=== PATIENT | female | born 1955 | race Caucasian/White ===

== ENCOUNTER → 2020-08-17 08:15 | Outpatient (BNVA) | payer MEDICARE, MEDICAID, SELFPAY | PROVIDERS: PCP Internal Medicine; Visit Provider Student in an Organized Health Care Education/Training Program | DX: Z13.89 Encounter for screening for other disorder (principal) | CPT/HCPCS: Q3014 ==

== ENCOUNTER → 2020-08-29 10:18 | Outpatient (BNVA) | payer MEDICARE, MEDICAID, SELFPAY | PROVIDERS: PCP Internal Medicine; Visit Provider Student in an Organized Health Care Education/Training Program | DX: M81.0 Age-related osteoporosis without current pathological fracture (principal) | CPT/HCPCS: 96402; J0897 ==

== ENCOUNTER 2020-11-16 08:48 | Outpatient (REF) | payer MEDICARE, MEDICAID, SELFPAY ==
[2020-11-16 10:15] LABS: MANUAL DIFF FLAG NO
[2020-11-16 10:26] LABS: Basophils Absolute Auto 0.1 X10*3/uL (0.0-0.2); Basophils Percent Auto 0.5 % (0-2); Eosinophils Absolute Auto 0.1 X10*3/uL (0.0-0.4); Eosinophils Percent Auto 1.3 % (0-4); Hematocrit 36.8 % (37-47); Hemoglobin 11.9 g/dl (12.0-16.0); Imm Gran Abs Auto 0.03 X10*3/uL (0.00-0.03); Imm Gran Pct Auto 0.3 % (0.0-0.4); Lymphocytes Absolute Auto 1.9 X10*3/uL (1.2-4.9); Lymphocytes Percent Auto 20.1 % (20-40); Mean Corpuscular HGB Conc 32.3 g/dl (31.0-35.0); Mean Corpuscular Hemoglobin 28.1 pg (27.0-33.0); Mean Corpuscular Volume 86.8 fL (80-98); Mean Platelet Volume 9.5 fL (9.4-12.3); Monocytes Absolute Auto 0.7 X10*3/uL (0.1-1.2); Monocytes Percent Auto 7.3 % (2-11); Neutrophils Absolute Auto 6.8 X10*3/uL (2.0-8.3); Neutrophils Percent Auto 70.5 % (45-73); Platelet Count 430 X10*3/uL (160-400); Red Blood Count 4.24 X10*6/uL (4.20-5.50); Red Cell Distribution Width 12.6 % (11.0-16.0); White Blood Count 9.6 X10*3/uL (4.8-10.8)
[2020-11-16 11:07] LABS: Erythrocyte Sedimentation Rate 27 MM/HR (0-20)
[2020-11-16 11:34] LABS: Alanine Aminotransferase 9 U/L (0-31); Albumin Level 4.1 g/dL (3.5-5.0); Alkaline Phosphatase 65 U/L (39-117); Anion Gap 14 (12-20); Aspartate Amino Transferase 18 U/L (5-31); Bilirubin Total 0.4 mg/dL (0.0-1.0); Blood Urea Nitrogen 7 mg/dL (9-16); C Reactive Protein 0.41 mg/dL (< or = 0.50); Calcium 8.4 mg/dL (8.4-10.2); Carbon Dioxide 25 mmol/L (22-29); Chloride 102 mmol/L (96-108); Estimated Glomerular Filt Rate 59; Glucose Random 90 mg/dL (60-115); Potassium 4.6 mmol/L (3.3-5.1); Sodium 136 mmol/L (135-145); Total Protein 6.4 g/dL (6.5-8.0)
[2020-11-23 12:11] LABS: Vitamin D 25-OH, D2 <4 ng/mL; Vitamin D 25-OH, D3 24 ng/mL; Vitamin D 25-OH, Total 24 ng/mL (30-100)
== END 2020-11-16 08:49 | disposition home or self-care (01) ==
LOC: HO.LAB 08:48
PROVIDERS: PCP Family Medicine; Visit Provider Student in an Organized Health Care Education/Training Program
DX: M05.9 Rheumatoid arthritis with rheumatoid factor, unspecified (principal); M81.0 Age-related osteoporosis without current pathological fracture; M19.041 Primary osteoarthritis, right hand; M19.042 Primary osteoarthritis, left hand; Z87.891 Personal history of nicotine dependence; Z88.5 Allergy status to narcotic agent; Z88.8 Allergy status to other drugs, medicaments and biological substances; Z91.018 Allergy to other foods; Z79.52 Long term (current) use of systemic steroids; Z79.899 Other long term (current) drug therapy
CPT/HCPCS: 36415; 80053; 82306; 85025; 85652; 86140; 99212

== ENCOUNTER 2021-02-15 11:10 | Outpatient (REF) | payer MEDICARE, MEDICAID, SELFPAY ==
[2021-02-15 12:35] LABS: MANUAL DIFF FLAG NO
[2021-02-15 12:43] LABS: Basophils Absolute Auto 0.1 X10*3/uL (0.0-0.2); Basophils Percent Auto 0.3 % (0-2); Eosinophils Absolute Auto 0.1 X10*3/uL (0.0-0.4); Eosinophils Percent Auto 0.7 % (0-4); Hematocrit 36.7 % (37-47); Hemoglobin 11.8 g/dl (12.0-16.0); Imm Gran Abs Auto 0.14 X10*3/uL (0.00-0.03); Lymphocytes Absolute Auto 1.2 X10*3/uL (1.2-4.9); Lymphocytes Percent Auto 8.5 % (20-40); Mean Corpuscular HGB Conc 32.2 g/dl (31.0-35.0); Mean Corpuscular Hemoglobin 27.6 pg (27.0-33.0); Mean Corpuscular Volume 85.9 fL (80-98); Mean Platelet Volume 9.1 fL (9.4-12.3); Monocytes Absolute Auto 0.7 X10*3/uL (0.1-1.2); Monocytes Percent Auto 5.1 % (2-11); Neutrophils Absolute Auto 12.3 X10*3/uL (2.0-8.3); Neutrophils Percent Auto 84.4 % (45-73); Platelet Count 537 X10*3/uL (160-400); Red Blood Count 4.27 X10*6/uL (4.20-5.50); White Blood Count 14.6 X10*3/uL (4.8-10.8)
[2021-02-15 13:07] LABS: Alanine Aminotransferase 16 U/L (0-31); Albumin Level 4.2 g/dL (3.5-5.0); Alkaline Phosphatase 71 U/L (39-117); Anion Gap 17 (12-20); Aspartate Amino Transferase 19 U/L (5-31); Bilirubin Total 0.5 mg/dL (0.0-1.0); Blood Urea Nitrogen 13 mg/dL (9-16); Calcium 9.3 mg/dL (8.4-10.2); Carbon Dioxide 21 mmol/L (22-29); Chloride 103 mmol/L (96-108); Estimated Glomerular Filt Rate 51; Glucose Random 97 mg/dL (60-115); Potassium 4.7 mmol/L (3.3-5.1); Sodium 136 mmol/L (135-145); Total Protein 6.6 g/dL (6.5-8.0)
[2021-02-15 13:23] LABS: Erythrocyte Sedimentation Rate 13 MM/HR (0-20)
== END 2021-02-15 11:11 | disposition home or self-care (01) ==
LOC: HO.LAB 11:10
PROVIDERS: PCP Family Medicine; Visit Provider Student in an Organized Health Care Education/Training Program
DX: M05.9 Rheumatoid arthritis with rheumatoid factor, unspecified (principal); M81.0 Age-related osteoporosis without current pathological fracture; Z79.52 Long term (current) use of systemic steroids
CPT/HCPCS: 36415; 80053; 85025; 85652; 86140; 96372; 99212

== ENCOUNTER 2021-04-11 10:05 | Outpatient (REF) | payer MEDICARE, MEDICAID, SELFPAY ==
[2021-04-11 11:09] LABS: MANUAL DIFF FLAG NO
[2021-04-11 11:20] LABS: Basophils Absolute Auto 0.1 X10*3/uL (0.0-0.2); Basophils Percent Auto 0.7 % (0-2); Eosinophils Absolute Auto 0.1 X10*3/uL (0.0-0.4); Eosinophils Percent Auto 1.3 % (0-4); Hematocrit 37.2 % (37-47); Imm Gran Abs Auto 0.01 X10*3/uL (0.00-0.03); Imm Gran Pct Auto 0.1 % (0.0-0.4); Lymphocytes Absolute Auto 2.5 X10*3/uL (1.2-4.9); Lymphocytes Percent Auto 33.1 % (20-40); Mean Corpuscular HGB Conc 32.3 g/dl (31.0-35.0); Mean Corpuscular Volume 86.9 fL (80-98); Mean Platelet Volume 9.7 fL (9.4-12.3); Monocytes Absolute Auto 0.9 X10*3/uL (0.1-1.2); Monocytes Percent Auto 11.8 % (2-11); Platelet Count 394 X10*3/uL (160-400); Red Blood Count 4.28 X10*6/uL (4.20-5.50); Red Cell Distribution Width 13.3 % (11.0-16.0); White Blood Count 7.5 X10*3/uL (4.8-10.8)
[2021-04-11 12:25] LABS: Alanine Aminotransferase 14 U/L (0-31); Anion Gap 14 (12-20); Blood Urea Nitrogen 3 mg/dL (9-16); Carbon Dioxide 24 mmol/L (22-29); Chloride 100 mmol/L (96-108); Estimated Glomerular Filt Rate 55; Iron 53 mcg/dL (30-160); Percent Iron Saturation 16 % (15-50); Potassium 4.7 mmol/L (3.3-5.1); Sodium 133 mmol/L (135-145); Total Iron Binding Capacity 330 mcg/dL (228-428); Unsaturated Iron Binding 277 ug/dL
== END 2021-04-11 10:06 | disposition home or self-care (01) ==
LOC: HO.LAB 10:05
PROVIDERS: PCP Family Medicine; Visit Provider Family Medicine
DX: E78.00 Pure hypercholesterolemia, unspecified (principal); D50.9 Iron deficiency anemia, unspecified; I10 Essential (primary) hypertension; Z79.899 Other long term (current) drug therapy
CPT/HCPCS: 36415; 80051; 82550; 82565; 83540; 84460; 84520; 85025

== ENCOUNTER → 2021-07-11 11:11 | Outpatient (REF) | payer MEDICARE, MEDICAID, SELFPAY ==
--- NOTE | 2021-07-11 11:21 | ECG_ITS ---
Test Reason : tachycardia Blood Pressure : / mmHG Vent. Rate : 110 BPM Atrial Rate : 110 BPM P-R Int : 146 ms QRS Dur : 070 ms QT Int : 296 ms P-R-T Axes : 058 005 066 degrees QTc Int : 400 ms Sinus tachycardia with Premature supraventricular complexes Nonspecific T wave abnormality Lateral leads Inferior leads Abnormal ECG No previous ECGs available Referred By: Colin Shi Electronically Signed By:NATHANIEL SMITH MD
== END ==
LOC: HO.CARD 11:11
PROVIDERS: PCP Family Medicine; Visit Provider Family Medicine
DX: R00.0 Tachycardia, unspecified (principal)
CPT/HCPCS: 93005

== ENCOUNTER → 2021-08-06 10:51 | Outpatient (BNVA) | payer MEDICARE, MEDICAID, SELFPAY | PROVIDERS: PCP Internal Medicine; Visit Provider Nurse Practitioner Family | DX: M05.9 Rheumatoid arthritis with rheumatoid factor, unspecified (principal); M81.0 Age-related osteoporosis without current pathological fracture; Z79.52 Long term (current) use of systemic steroids | CPT/HCPCS: 99212 ==

== ENCOUNTER 2021-08-21 08:56 | Outpatient (REF) | payer MEDICARE, MEDICAID, SELFPAY ==
[2021-08-21 09:19] LABS: MANUAL DIFF FLAG NO
[2021-08-21 09:49] LABS: Basophils Absolute Auto 0.1 X10*3/uL (0.0-0.2); Basophils Percent Auto 0.4 % (0-2); Hematocrit 35.1 % (37.0-47.0); Hemoglobin 11.1 g/dl (12.0-16.0); Imm Gran Abs Auto 0.06 X10*3/uL (0.00-0.03); Imm Gran Pct Auto 0.5 % (0.0-0.4); Lymphocytes Absolute Auto 1.2 X10*3/uL (1.2-4.9); Lymphocytes Percent Auto 9.4 % (20-40); Mean Corpuscular HGB Conc 31.6 g/dl (31.0-35.0); Mean Corpuscular Volume 82.2 fL (80.0-98.0); Mean Platelet Volume 9.2 fL (9.4-12.3); Monocytes Absolute Auto 0.6 X10*3/uL (0.1-1.2); Monocytes Percent Auto 4.8 % (2-11); Neutrophils Absolute Auto 10.7 x10*3/uL (2.0-8.3); Neutrophils Percent Auto 84.9 % (45-73); Platelet Count 371 X10*3/uL (160-400); Red Blood Count 4.27 X10*6/uL (4.20-5.50); Red Cell Distribution Width 16.1 % (11.0-16.0); White Blood Count 12.6 X10*3/uL (4.8-10.8)
[2021-08-21 10:17] LABS: Alanine Aminotransferase 15 U/L (0-31); Albumin Level 3.9 g/dL (3.5-5.0); Alkaline Phosphatase 58 U/L (39-117); Anion Gap 14 (12-20); Aspartate Amino Transferase 16 U/L (5-31); Bilirubin Total 0.3 mg/dL (0.0-1.0); Blood Urea Nitrogen 7 mg/dL (9-16); C Reactive Protein 0.55 mg/dL (< or = 0.50); Calcium 9.7 mg/dL (8.4-10.2); Carbon Dioxide 28 mmol/L (22-29); Chloride 99 mmol/L (96-108); Estimated Glomerular Filt Rate 53; Glucose Random 104 mg/dL (60-115); Iron 49 mcg/dL (30-160); Percent Iron Saturation 15 % (15-50); Potassium 5.1 mmol/L (3.3-5.1); Sodium 136 mmol/L (135-145); Total Iron Binding Capacity 332 mcg/dL (228-428); Total Protein 6.6 g/dL (6.5-8.0); Unsaturated Iron Binding 283 ug/dL
[2021-08-21 10:38] LABS: Ferritin 109 ng/mL (10-250)
[2021-08-21 10:50] LABS: Erythrocyte Sedimentation Rate 30 MM/HR (0-20)
== END 2021-08-21 08:57 | disposition home or self-care (01) ==
LOC: HO.LAB 08:56
PROVIDERS: PCP Family Medicine; Visit Provider Nurse Practitioner Family
DX: M05.9 Rheumatoid arthritis with rheumatoid factor, unspecified (principal); E87.1 Hypo-osmolality and hyponatremia; M81.0 Age-related osteoporosis without current pathological fracture
CPT/HCPCS: 36415; 80053; 82728; 83540; 85025; 85652; 86140; 96372; 99212

== ENCOUNTER → 2021-10-15 12:21 | Outpatient (BNVA) | payer MEDICARE, MEDICAID, SELFPAY | PROVIDERS: PCP Internal Medicine; Visit Provider Nurse Practitioner Family ==

== ENCOUNTER 2021-11-05 09:55 | Outpatient (REF) | payer MEDICARE, MEDICAID, SELFPAY ==
--- NOTE | ~2021-11-05 | XR_ITS ---
EXAMINATION: XR hand LT 2V, XR hand RT 2V CLINICAL INFORMATION: Pain, arthritis COMPARISON: Hand radiographs 02/12/2017 TECHNIQUE: 3 views of the bilateral hands XR/XR hand RT 2V FINDINGS/IMPRESSION: RIGHT HAND: No fracture or dislocation. Stable chronic healed fracture deformity of the fifth metacarpal. Osteopenia. Advanced degenerative changes of the distal interphalangeal joints similar to prior. Similar appearance of loss of second and third metacarpophalangeal joint space with volar subluxation of the phalanges with respect to the metatarsal heads. Moderate degenerative changes of the first carpometacarpal and triscaphe joints, similar to prior, which can be seen in the setting of rheumatoid arthritis. No cortical erosion. Soft tissues are unremarkable. LEFT HAND: No fracture or dislocation. Osteopenia. Advanced degenerative changes of the second through fifth distal interphalangeal joints and triscaphe joint with loss of joint space There is widening of the scapholunate interval. Redemonstration of loss of joint space involving the second and third metacarpophalangeal joints with volar subluxation of the proximal phalanges with respect to the metatarsal heads which can be seen in the setting of rheumatoid arthritis similar to prior. No cortical erosion. Soft tissues are unremarkable.
--- NOTE | ~2021-11-05 | XR_ITS ---
EXAMINATION: XR hand LT 2V, XR hand RT 2V CLINICAL INFORMATION: Pain, arthritis COMPARISON: Hand radiographs 02/12/2017 TECHNIQUE: 3 views of the bilateral hands XR/XR hand LT 2V FINDINGS/IMPRESSION: RIGHT HAND: No fracture or dislocation. Stable chronic healed fracture deformity of the fifth metacarpal. Osteopenia. Advanced degenerative changes of the distal interphalangeal joints similar to prior. Similar appearance of loss of second and third metacarpophalangeal joint space with volar subluxation of the phalanges with respect to the metatarsal heads. Moderate degenerative changes of the first carpometacarpal and triscaphe joints, similar to prior, which can be seen in the setting of rheumatoid arthritis. No cortical erosion. Soft tissues are unremarkable. LEFT HAND: No fracture or dislocation. Osteopenia. Advanced degenerative changes of the second through fifth distal interphalangeal joints and triscaphe joint with loss of joint space There is widening of the scapholunate interval. Redemonstration of loss of joint space involving the second and third metacarpophalangeal joints with volar subluxation of the proximal phalanges with respect to the metatarsal heads which can be seen in the setting of rheumatoid arthritis similar to prior. No cortical erosion. Soft tissues are unremarkable.
[2021-11-05 11:25] LABS: MANUAL DIFF FLAG NO
[2021-11-05 11:47] LABS: Basophils Percent Auto 0.4 % (0-2); Hematocrit 32.3 % (37.0-47.0); Hemoglobin 10.2 g/dl (12.0-16.0); Imm Gran Abs Auto 0.04 X10*3/uL (0.00-0.03); Imm Gran Pct Auto 0.4 % (0.0-0.4); Lymphocytes Absolute Auto 0.7 X10*3/uL (1.2-4.9); Lymphocytes Percent Auto 7.8 % (20-40); Mean Corpuscular HGB Conc 31.6 g/dl (31.0-35.0); Mean Corpuscular Hemoglobin 25.6 pg (27.0-33.0); Mean Platelet Volume 9.2 fL (9.4-12.3); Monocytes Absolute Auto 0.3 X10*3/uL (0.1-1.2); Monocytes Percent Auto 2.7 % (2-11); Neutrophils Absolute Auto 8.1 x10*3/uL (2.0-8.3); Neutrophils Percent Auto 88.7 % (45-73); Platelet Count 375 X10*3/uL (160-400); Red Blood Count 3.99 X10*6/uL (4.20-5.50); Red Cell Distribution Width 15.1 % (11.0-16.0); White Blood Count 9.1 X10*3/uL (4.8-10.8)
[2021-11-05 12:28] LABS: Alanine Aminotransferase 11 U/L (0-31); Albumin Level 3.7 g/dL (3.5-5.0); Alkaline Phosphatase 62 U/L (39-117); Anion Gap 14 (12-20); Aspartate Amino Transferase 14 U/L (5-31); Bilirubin Total 0.2 mg/dL (0.0-1.0); Blood Urea Nitrogen 11 mg/dL (9-16); C Reactive Protein 0.74 mg/dL (< or = 0.50); Calcium 8.9 mg/dL (8.4-10.2); Carbon Dioxide 22 mmol/L (22-29); Chloride 102 mmol/L (96-108); Estimated Glomerular Filt Rate 55; Glucose Random 121 mg/dL (60-115); Potassium 5.1 mmol/L (3.3-5.1); Sodium 133 mmol/L (135-145); Total Protein 6.1 g/dL (6.5-8.0)
[2021-11-05 12:33] LABS: Erythrocyte Sedimentation Rate 33 MM/HR (0-20)
[2021-11-06 05:32] LABS: HBS Num1 0.03 mIU/mL (0-7.99); HBc Num1 0.06 S/CO (0.00-0.79); Hepatitis B Core Antibody Nonreactive (Nonreactive); ~HepC Num1 0.15 S/CO (0.00-0.79); ~Hepatitis B Surface Antibody NONREACTIVE (Nonreactive); ~Hepatitis C Antibody Nonreactive (Nonreactive)
[2021-11-06 05:42] LABS: Hepatitis B Surface Antigen Negative (Negative)
[2021-11-07 08:40] LABS: ~Hepatitis A Antibody IgM Nonreactive (Nonreactive)
[2021-11-07 14:06] LABS: TS Negative Control Passed; TS Panel A 0; TS Panel B 3; TS Positive Control Passed; TSpotTB Negative (Negative)
[2021-11-09 13:10] LABS: Vitamin D 25-OH, D2 <4 ng/mL; Vitamin D 25-OH, D3 26 ng/mL; Vitamin D 25-OH, Total 26 ng/mL (30-100)
== END 2021-11-05 09:56 | disposition home or self-care (01) ==
LOC: HO.XRAY 09:55
PROVIDERS: PCP Family Medicine; Visit Provider Internal Medicine Rheumatology
DX: Z11.1 Encounter for screening for respiratory tuberculosis (principal); M19.041 Primary osteoarthritis, right hand; M19.042 Primary osteoarthritis, left hand; M05.9 Rheumatoid arthritis with rheumatoid factor, unspecified; M81.0 Age-related osteoporosis without current pathological fracture; M47.816 Spondylosis without myelopathy or radiculopathy, lumbar region; Z79.52 Long term (current) use of systemic steroids; Z79.899 Other long term (current) drug therapy
CPT/HCPCS: 36415; 73120; 80053; 82306; 85025; 85652; 86140; 86481; 86704; 86706; 86709; 86803; 87340; Q3014

== ENCOUNTER 2021-11-09 11:02 | Outpatient (REF) | payer MEDICARE, MEDICAID, SELFPAY ==
[2021-11-09 13:43] LABS: MANUAL DIFF FLAG NO
[2021-11-09 13:53] LABS: Basophils Absolute Auto 0.1 X10*3/uL (0.0-0.2); Basophils Percent Auto 0.7 % (0-2); Hematocrit 34.8 % (37.0-47.0); Hemoglobin 10.9 g/dl (12.0-16.0); Imm Gran Abs Auto 0.04 X10*3/uL (0.00-0.03); Imm Gran Pct Auto 0.4 % (0.0-0.4); Lymphocytes Absolute Auto 1.2 X10*3/uL (1.2-4.9); Lymphocytes Percent Auto 10.7 % (20-40); Mean Corpuscular HGB Conc 31.3 g/dl (31.0-35.0); Mean Corpuscular Hemoglobin 25.5 pg (27.0-33.0); Mean Corpuscular Volume 81.5 fL (80.0-98.0); Mean Platelet Volume 9.6 fL (9.4-12.3); Monocytes Absolute Auto 0.5 X10*3/uL (0.1-1.2); Monocytes Percent Auto 4.6 % (2-11); Neutrophils Absolute Auto 9.5 x10*3/uL (2.0-8.3); Neutrophils Percent Auto 83.6 % (45-73); Platelet Count 454 X10*3/uL (160-400); Red Blood Count 4.27 X10*6/uL (4.20-5.50); Red Cell Distribution Width 15.3 % (11.0-16.0); White Blood Count 11.3 X10*3/uL (4.8-10.8)
[2021-11-09 14:03] LABS: Iron 23 mcg/dL (30-160); Percent Iron Saturation 7 % (15-50); Total Iron Binding Capacity 340 mcg/dL (228-428); Unsaturated Iron Binding 317 ug/dL
[2021-11-09 14:22] LABS: Ferritin 61 ng/mL (10-250)
[2021-11-09 14:33] LABS: Folate > 20.0 ng/mL (> or = 4.0); Vitamin B12 866 pg/mL (200-900)
== END 2021-11-09 11:03 | disposition home or self-care (01) ==
LOC: HO.10HDL 11:02
PROVIDERS: Absent Provider Internal Medicine Rheumatology; Visit Provider Family Medicine
DX: D64.9 Anemia, unspecified (principal)
CPT/HCPCS: 36415; 82607; 82728; 82746; 83540; 85025

== ENCOUNTER 2021-12-10 09:52 | Outpatient (REF) | payer MEDICARE, MEDICAID, SELFPAY ==
[2021-12-10 11:38] LABS: MANUAL DIFF FLAG NO
[2021-12-10 12:16] LABS: Basophils Absolute Auto 0.1 X10*3/uL (0.0-0.2); Basophils Percent Auto 0.7 % (0-2); Eosinophils Percent Auto 0.1 % (0-4); Hematocrit 32.7 % (37.0-47.0); Hemoglobin 10.4 g/dl (12.0-16.0); Imm Gran Abs Auto 0.04 X10*3/uL (0.00-0.03); Imm Gran Pct Auto 0.4 % (0.0-0.4); Lymphocytes Absolute Auto 1.2 X10*3/uL (1.2-4.9); Lymphocytes Percent Auto 11.4 % (20-40); Mean Corpuscular HGB Conc 31.8 g/dl (31.0-35.0); Mean Corpuscular Hemoglobin 25.8 pg (27.0-33.0); Mean Corpuscular Volume 81.1 fL (80.0-98.0); Mean Platelet Volume 9.2 fL (9.4-12.3); Monocytes Absolute Auto 0.5 X10*3/uL (0.1-1.2); Monocytes Percent Auto 4.8 % (2-11); Neutrophils Absolute Auto 8.6 x10*3/uL (2.0-8.3); Neutrophils Percent Auto 82.6 % (45-73); Platelet Count 496 X10*3/uL (160-400); Red Blood Count 4.03 X10*6/uL (4.20-5.50); Red Cell Distribution Width 15.5 % (11.0-16.0); White Blood Count 10.4 X10*3/uL (4.8-10.8)
[2021-12-10 12:50] LABS: Alanine Aminotransferase 13 U/L (0-31); Aspartate Amino Transferase 17 U/L (5-31); Estimated Glomerular Filt Rate 59
[2021-12-10 12:53] LABS: Erythrocyte Sedimentation Rate 43 MM/HR (0-20)
== END 2021-12-10 09:53 | disposition home or self-care (01) ==
LOC: HO.LAB 09:52
PROVIDERS: PCP Family Medicine; Visit Provider Internal Medicine Rheumatology
DX: M05.9 Rheumatoid arthritis with rheumatoid factor, unspecified (principal); M19.042 Primary osteoarthritis, left hand; M19.041 Primary osteoarthritis, right hand; M81.0 Age-related osteoporosis without current pathological fracture; D50.9 Iron deficiency anemia, unspecified; Z87.891 Personal history of nicotine dependence; Z96.652 Presence of left artificial knee joint; Z88.6 Allergy status to analgesic agent; Z88.1 Allergy status to other antibiotic agents; Z88.3 Allergy status to other anti-infective agents; Z91.02 Food additives allergy status; Z91.018 Allergy to other foods; Z79.52 Long term (current) use of systemic steroids; Z79.899 Other long term (current) drug therapy
CPT/HCPCS: 20600; 36415; 82565; 84450; 84460; 85025; 85652; 86140; 99212

== ENCOUNTER 2022-02-13 09:20 | Outpatient (REF) | payer MEDICARE, MEDICAID, SELFPAY ==
[2022-02-13 10:43] LABS: MANUAL DIFF FLAG NO
[2022-02-13 11:04] LABS: Basophils Absolute Auto 0.1 X10*3/uL (0.0-0.2); Basophils Percent Auto 0.5 % (0-2); Eosinophils Absolute Auto 0.1 X10*3/uL (0.0-0.4); Eosinophils Percent Auto 0.5 % (0-4); Hematocrit 31.2 % (37.0-47.0); Hemoglobin 10.1 g/dl (12.0-16.0); Imm Gran Abs Auto 0.05 X10*3/uL (0.00-0.03); Imm Gran Pct Auto 0.5 % (0.0-0.4); Lymphocytes Absolute Auto 1.2 X10*3/uL (1.2-4.9); Lymphocytes Percent Auto 10.7 % (20-40); Mean Corpuscular HGB Conc 32.4 g/dl (31.0-35.0); Mean Corpuscular Hemoglobin 28.3 pg (27.0-33.0); Mean Corpuscular Volume 87.4 fL (80.0-98.0); Monocytes Absolute Auto 0.5 X10*3/uL (0.1-1.2); Monocytes Percent Auto 4.8 % (2-11); Neutrophils Absolute Auto 9.1 x10*3/uL (2.0-8.3); Platelet Count 338 X10*3/uL (160-400); Red Blood Count 3.57 X10*6/uL (4.20-5.50); Red Cell Distribution Width 18.7 % (11.0-16.0)
[2022-02-13 11:36] LABS: Erythrocyte Sedimentation Rate 19 MM/HR (0-20)
[2022-02-13 11:48] LABS: Alanine Aminotransferase 14 U/L (0-31); Albumin Level 3.9 g/dL (3.5-5.0); Alkaline Phosphatase 60 U/L (39-117); Anion Gap 12 (12-20); Aspartate Amino Transferase 15 U/L (5-31); Bilirubin Total 0.2 mg/dL (0.0-1.0); Blood Urea Nitrogen 7 mg/dL (9-16); Carbon Dioxide 26 mmol/L (22-29); Chloride 100 mmol/L (96-108); Estimated Glomerular Filt Rate 56; Glucose Random 98 mg/dL (60-115); Potassium 4.9 mmol/L (3.3-5.1); Sodium 133 mmol/L (135-145); Total Protein 6.2 g/dL (6.5-8.0)
[2022-02-20 15:42] LABS: Vitamin D 25-OH, D2 <4 ng/mL; Vitamin D 25-OH, D3 25 ng/mL; Vitamin D 25-OH, Total 25 ng/mL (30-100)
== END 2022-02-13 09:21 | disposition home or self-care (01) ==
LOC: HO.LAB 09:20
PROVIDERS: PCP Family Medicine; Visit Provider Internal Medicine Rheumatology
DX: M05.9 Rheumatoid arthritis with rheumatoid factor, unspecified (principal); M81.0 Age-related osteoporosis without current pathological fracture; Z87.891 Personal history of nicotine dependence; Z96.652 Presence of left artificial knee joint; Z79.52 Long term (current) use of systemic steroids; Z79.899 Other long term (current) drug therapy
CPT/HCPCS: 36415; 80053; 82306; 85025; 85652; 86140; 96372; 99212

== ENCOUNTER 2022-04-16 09:17 | Outpatient (REF) | payer MEDICARE, MEDICAID, SELFPAY ==
[2022-04-16 10:31] LABS: MANUAL DIFF FLAG NO
[2022-04-16 10:36] LABS: Basophils Percent Auto 0.3 % (0-2); Eosinophils Percent Auto 0.3 % (0-4); Hematocrit 33.7 % (37.0-47.0); Imm Gran Abs Auto 0.05 X10*3/uL (0.00-0.03); Imm Gran Pct Auto 0.5 % (0.0-0.4); Lymphocytes Absolute Auto 0.8 X10*3/uL (1.2-4.9); Lymphocytes Percent Auto 7.1 % (20-40); Mean Corpuscular HGB Conc 32.6 g/dl (31.0-35.0); Mean Corpuscular Volume 88.9 fL (80.0-98.0); Mean Platelet Volume 9.6 fL (9.4-12.3); Monocytes Absolute Auto 0.4 X10*3/uL (0.1-1.2); Monocytes Percent Auto 3.4 % (2-11); Neutrophils Absolute Auto 9.5 x10*3/uL (2.0-8.3); Neutrophils Percent Auto 88.4 % (45-73); Platelet Count 371 X10*3/uL (160-400); Red Blood Count 3.79 X10*6/uL (4.20-5.50); Red Cell Distribution Width 15.2 % (11.0-16.0); White Blood Count 10.8 X10*3/uL (4.8-10.8)
[2022-04-16 10:47] LABS: Alanine Aminotransferase 17 U/L (0-31); Aspartate Amino Transferase 21 U/L (5-31); Estimated Glomerular Filt Rate 59; Iron 37 mcg/dL (30-160); Percent Iron Saturation 11 % (15-50); Total Iron Binding Capacity 343 mcg/dL (228-428); Unsaturated Iron Binding 306 ug/dL
[2022-04-16 11:05] LABS: Vitamin D 25-OH Total 26.5 ng/mL (>30)
[2022-04-16 11:58] LABS: Erythrocyte Sedimentation Rate 7 MM/HR (0-20)
== END 2022-04-16 09:18 | disposition home or self-care (01) ==
LOC: HO.10HDL 09:17
PROVIDERS: Family Medicine; Visit Provider Internal Medicine Rheumatology
DX: M05.9 Rheumatoid arthritis with rheumatoid factor, unspecified (principal); D50.9 Iron deficiency anemia, unspecified; Z79.899 Other long term (current) drug therapy; M81.0 Age-related osteoporosis without current pathological fracture; D64.9 Anemia, unspecified; M19.041 Primary osteoarthritis, right hand; M19.042 Primary osteoarthritis, left hand
CPT/HCPCS: 36415; 82306; 82565; 83540; 84450; 84460; 85025; 85652; 86140; 99212

== ENCOUNTER 2022-08-27 09:51 | Outpatient (REF) | payer MEDICARE, MEDICAID, SELFPAY ==
[2022-08-27 10:25] LABS: MANUAL DIFF FLAG NO
[2022-08-27 10:34] LABS: Basophils Absolute Auto 0.1 X10*3/uL (0.0-0.2); Basophils Percent Auto 0.6 % (0-2); Eosinophils Absolute Auto 0.1 X10*3/uL (0.0-0.4); Eosinophils Percent Auto 0.8 % (0-4); Hematocrit 31.3 % (37.0-47.0); Imm Gran Abs Auto 0.03 X10*3/uL (0.00-0.03); Imm Gran Pct Auto 0.4 % (0.0-0.4); Lymphocytes Percent Auto 12.4 % (20-40); Mean Corpuscular HGB Conc 31.9 g/dl (31.0-35.0); Mean Corpuscular Hemoglobin 29.2 pg (27.0-33.0); Mean Corpuscular Volume 91.5 fL (80.0-98.0); Mean Platelet Volume 9.7 fL (9.4-12.3); Monocytes Absolute Auto 0.3 X10*3/uL (0.1-1.2); Neutrophils Absolute Auto 6.4 x10*3/uL (2.0-8.3); Neutrophils Percent Auto 81.8 % (45-73); Platelet Count 263 X10*3/uL (160-400); Red Blood Count 3.42 X10*6/uL (4.20-5.50); White Blood Count 7.8 X10*3/uL (4.8-10.8)
[2022-08-27 11:09] LABS: Alanine Aminotransferase 20 U/L (0-31); Anion Gap 11 (12-20); Aspartate Amino Transferase 20 U/L (5-31); Blood Urea Nitrogen 8 mg/dL (9-16); C Reactive Protein < 0.04 mg/dL (< or = 0.50); Calcium 9.4 mg/dL (8.4-10.2); Carbon Dioxide 28 mmol/L (22-29); Chloride 97 mmol/L (96-108); Estimated Glomerular Filt Rate 50; Glucose Random 98 mg/dL (60-115); Potassium 4.4 mmol/L (3.3-5.1); Sodium 132 mmol/L (135-145)
[2022-08-27 11:11] LABS: Erythrocyte Sedimentation Rate 7 MM/HR (0-20)
== END 2022-08-27 09:52 | disposition home or self-care (01) ==
LOC: HO.10HDL 09:51
PROVIDERS: Visit Provider Internal Medicine Rheumatology
DX: M05.9 Rheumatoid arthritis with rheumatoid factor, unspecified (principal); M81.0 Age-related osteoporosis without current pathological fracture; M19.042 Primary osteoarthritis, left hand; M19.041 Primary osteoarthritis, right hand; Z79.899 Other long term (current) drug therapy
CPT/HCPCS: 20605; 36415; 80048; 84450; 84460; 85025; 85652; 86140; 96372; 99212

== ENCOUNTER 2022-10-22 08:51 | Outpatient (REF) | payer MEDICARE, MEDICAID, SELFPAY ==
[2022-10-22 10:37] LABS: MANUAL DIFF FLAG NO
[2022-10-22 10:50] LABS: Basophils Percent Auto 0.5 % (0-2); Eosinophils Absolute Auto 0.1 X10*3/uL (0.0-0.4); Eosinophils Percent Auto 0.6 % (0-4); Hematocrit 32.8 % (37.0-47.0); Hemoglobin 10.5 g/dl (12.0-16.0); Imm Gran Abs Auto 0.03 X10*3/uL (0.00-0.03); Imm Gran Pct Auto 0.4 % (0.0-0.4); Lymphocytes Absolute Auto 1.1 X10*3/uL (1.2-4.9); Lymphocytes Percent Auto 13.5 % (20-40); Mean Corpuscular Hemoglobin 29.7 pg (27.0-33.0); Mean Corpuscular Volume 92.9 fL (80.0-98.0); Mean Platelet Volume 10.2 fL (9.4-12.3); Monocytes Absolute Auto 0.4 X10*3/uL (0.1-1.2); Monocytes Percent Auto 4.9 % (2-11); Neutrophils Absolute Auto 6.2 x10*3/uL (2.0-8.3); Neutrophils Percent Auto 80.1 % (45-73); Platelet Count 299 X10*3/uL (160-400); Red Blood Count 3.53 X10*6/uL (4.20-5.50); Red Cell Distribution Width 14.4 % (11.0-16.0); White Blood Count 7.8 X10*3/uL (4.8-10.8)
[2022-10-22 11:24] LABS: Anion Gap 14 (12-20); Blood Urea Nitrogen 10 mg/dL (9-16); Carbon Dioxide 24 mmol/L (22-29); Chloride 99 mmol/L (96-108); Iron 63 mcg/dL (30-160); Percent Iron Saturation 20 % (15-50); Potassium 4.8 mmol/L (3.3-5.1); Sodium 132 mmol/L (135-145); Total Iron Binding Capacity 313 mcg/dL (228-428); Unsaturated Iron Binding 250 ug/dL
[2022-10-22 11:25] LABS: Alanine Aminotransferase 19 U/L (0-31); Aspartate Amino Transferase 21 U/L (5-31); C Reactive Protein < 0.10 mg/dL (< or = 0.50); Estimated Glomerular Filt Rate 51
[2022-10-22 11:29] LABS: Erythrocyte Sedimentation Rate 8 MM/HR (0-20)
== END 2022-10-22 08:52 | disposition home or self-care (01) ==
LOC: HO.10HDL 08:51
PROVIDERS: Absent Provider Family Medicine; Visit Provider Internal Medicine Rheumatology
DX: M05.9 Rheumatoid arthritis with rheumatoid factor, unspecified (principal); M81.0 Age-related osteoporosis without current pathological fracture; I10 Essential (primary) hypertension; E87.1 Hypo-osmolality and hyponatremia; D50.9 Iron deficiency anemia, unspecified; Z79.899 Other long term (current) drug therapy
CPT/HCPCS: 36415; 80051; 82565; 83540; 84450; 84460; 84520; 85025; 85652; 86140

== ENCOUNTER 2023-03-05 10:36 | Outpatient (REF) | payer MEDICARE, SELFPAY | END 2023-03-05 10:37 | disposition home or self-care (01) | LOC: HO.10HDL 10:36 | PROVIDERS: Visit Provider Internal Medicine Rheumatology | DX: M05.9 Rheumatoid arthritis with rheumatoid factor, unspecified (principal); Z79.899 Other long term (current) drug therapy | CPT/HCPCS: 36415; 80053; 85025; 85652; 86140 ==

== ENCOUNTER 2023-03-10 10:03 | Outpatient (AMB) | payer MEDICARE, SELFPAY ==
--- NOTE | 2023-03-10 10:11 | A.OFFVIS_ITS ---
Intake Vital Signs 03/10/23 10:12 Height 5 ft 2 in Weight 192 lb 0.362 oz BMI 35.1 BP 126/78 Blood Pressure Location Rt brachial Position Sitting Pulse 79 Pulse Source Pulse Oximeter Pulse Oximetry (%) 95 Intake Visit Reasons: ra/prolia Intake Note: C/o pain on left side when breathes in, started approx 2 days ago. Reports she is swimming and walking more in the pool and thinks it might be from that. 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 Accompanied by: Self / Same As Patient Allergies morphine Allergy (Unknown, Verified 03/10/23 10:21) hallucinations Clindamycin HCl Allergy (Severe, Uncoded 03/10/23 10:21) diarrhea mustard Allergy (Unknown, Uncoded 03/10/23 10:21) Unknown sugar substitute Allergy (Unknown, Uncoded 03/10/23 10:21) Unknown Medication List - Last Reconciled 03/10/23 by Julio Cuevas MD abatacept (Orencia ClickJect) 125 mg subcut QWEEK acetaminophen ER (Tylenol Arthritis Pain) 650 mg PO Q8H PRN aripiprazole (Abilify) 5 mg PO DAILY cholecalciferol (vitamin D3) 50 mcg PO DAILY denosumab (Prolia) 60 mg subcut [id number] diazepam (Valium) 5 mg PO BEDTIME PRN ferrous sulfate 325 mg PO DAILY folic acid 1 mg PO DAILY ibuprofen 400 mg PO BID PRN lisinopril 5 mg PO DAILY methotrexate sodium 10 mg (4 x 2.5 mg) PO QWEEK kgdosscf-auo-GV-lycopen-lutein 0.4 mg-300 mcg- 250 mcg (Centrum Silver) 1 tab PO DAILY pantoprazole 40 mg PO DAILY pravastatin 40 mg PO DAILY prazosin 5 mg PO BEDTIME prednisone one tab in AM and 1/2 tab in PM daily HPI HPI Comments History of Present Illness Details The patient returns for evaluation of her rheumatoid arthritis and osteoporosis. She remains on prednisone 5 mg the morning and 2.5 mg in the evening, methotrexate 10 mg weekly, Orencia 125 mg every week, and occasional ibuprofen. In general the joints have been stable. There is pain in her ankles, knees and hands when she is more active. She has joined a health club with the financial assistance of her insurer. She has been swimming in an 80 degree pool. She does find this very helpful although is a bit sore in the muscles after doing this. For 2 days now she has noted some pleuritic pain in the left lower rib region. She does not recall any injury but she noticed it when gettinng out of the pool. There has been no redness or bruising. There is no shortness of breath, cough, fever or chills. She remains on Prolia injections every 6 months and is due for one today. [facility], [facility] Medical History (Updated 12/10/22 @ 12:11 by Julio Cuevas MD) Iron deficiency anemia Long-term use of immunosuppressant medication Lumbar spondylosis Osteoporosis Primary osteoarthritis of hands, bilateral Seropositive rheumatoid arthritis Surgical History (System 06/20/22 @ 09:00 by Rosibel Swan) History of total left knee replacement (TKR) Social History Alcohol intake: never Patient Tobacco Use Status: Former Tobacco user Tobacco use type: Cigarette Cigarettes Per Day: 2 Years Smoked: 7 e-Cigarette/Vaping Use: Never Used Review of Systems Const Details: She has a bit more energy now that she is doing some physical activity in the pool. Negative for appetite change, weight change, fever, chills, malaise and fatigue Eyes Details: Negative for vision change, dry eyes,headaches and dizziness ENT Details: Negative for hearing change, tinnitus, oral ulcer, nose bleeds and oral dryness. Card Details: Negative chest pain, edema and syncope Resp Details: Negative for SOB, cough and wheezing GI Details: Negative indigestion/heartburn, nausea, abdominal pain, bowel changes, diarrhea, constipation and bloody stool. Skin/Breast Details: Negative for itching, rash, hives, Raynaud's symptoms, sun sensitivity, and skin cancer Ron/Lymph Details: Negative for excessive bruising or bleeding. Physical Exam Vital Signs: Last Vital Signs Pulse 79 03/10/23 10:12 BP 126/78 03/10/23 10:12 Pulse Ox 95 03/10/23 10:12 BMI result Body Mass Index 35.1 APPEARANCE: Patient in no acute distress EYES no redness, pupils equal and reactive to light, eyelids normal THROAT: Oral mucosa moist, no ulcerations NECK: No thyromegaly or masses, no adenopathy, trachea midline. HEART: Regulrar rhythm, S1-S2 heard, no murmurs, rubs or gallops. LUNG: Clear to percussion and auscultation ABD: Normal bowel sounds, no organomegaly, masses or tenderness. EXTREMITIES: No edema, no calf tenderness, normal peripheral pulses. JOINT EXAM: Cervical Spine:.? Full range of motion with mild pain; no tenderness. Thoracic Spine:.? No scoliosis.? No tenderness on palpation. Lumbar Spine:.? Alignment normal.? Mild pain with extremes of motion.? No ten derness. Chest Wall:.? There is mild tenderness along the left costal margin. This is at about the midclavicular line. This is where she is getting the pleuritic pain. I do not see any bruising, swelling, increased warmth or erythema. Hands:? Right:? There is mild swelling and flexion deformityof the 1st 3 MCP joints with no tenderness or pain with motion of those joints.? ? There is no redness or warmth appreciated.? There is some bony enlargement at the thumb IP and 5th PIP with minimal tenderness.? There is? questionable sensory loss at the 4th and 5th fingertips.? I do not detect any flexion tender trigger triggering.? All the DIP joints have mild bony enlargement with slight tenderness.? Left:?? there is [id number] swelling of the MCP joints with some mild tenderness at the 3rd and 4th MCP..?? There is mild tenderness at the CMC joint in the thumb MCP.? She has some mild soft tissue swelling and bony enlargement at the 5th PIP? Which is mildlytender.? All the DIPs have PIP bony enlargement with mild tenderness. Wrists:.? Right:? No discomfort with flexion or extension at 75 degrees with? slight dorsal tenderness but no swelling.? Left:?? mild to moderate swelling and mild pain with flexion or extension is 45 degrees, most of the pain is at the base of the thumb.? There is some soft tissue swelling and bony enlargement at the base of the thumb but no redness or warmth. Elbows:.? Right: Mild swelling and tenderness at the right elbow where she lacks about 15 degrees of full extension.? Left:?? mild pain with extension.? She lacks about 20 degrees of full extension.? There is soft tissue swelling and mild tenderness over the joint space but no increased warmth or erythema. palpation of the ulnar region results in some paresthesias in the left 4th 5th fingertips. Shoulders:.?? Mild pain with abduction 150 degrees with extremes of rotation.? Mild anterior tenderness with questionable weakness but no swelling, increased warmth or erythema. Hips:.? The patient is in the wheelchair.? Hips not adequately examination today. Hip bursa:.? No tenderness. Knees:.?? Right:? Slight pain with extremes of motion and some minimal medial tenderness there is mild patellofemoral crepitus but no redness, warmth or effusion.? Left: Mild pain with more than 75 degrees flexion.? There is valgus deformity of the knee with medial lateral tenderness and some slight thickening but no redness or warmth.? There is evidence of previous surgery at the knee. Ankles:? Mild tenderness and pain with motion.? No soft tissue? swelling, increased warmth or erythema. Office Meds Prolia Performing Provider: Julio Cuevas MD Administered by: Julio Cuevas MD on 03/10/23 11:57 Dose Route Admin Location Lot Number Expiration Date [facility] [employer] 60 mg subcut [id number] 03/31/25 83679-349-05 [facility] Comments: 60 mg of Prolia injected in the right upper arm subcutaneous tissue by Dr. Cuevas Results Reviewed Results Reviewed: Laboratory Tests 03/05/23 03/05/23 10:39 10:39 WBC 9.2 Hgb 10.6 L Creatinine 1.12 Calcium 9.2 AST 19 ALT 14 C-Reactive Protein 0.12 Assessment & Plan Assessment & Plan (1) Primary osteoarthritis of hands, bilateral: Code(s): M19.041 - Primary osteoarthritis, right hand; M19.042 - Primary osteoarthritis, left hand (2) Lumbar spondylosis: Code(s): M47.816 - Spondylosis without myelopathy or radiculopathy, lumbar region (3) Long-term use of immunosuppressant medication: Code(s): Z79.899 - Other assistant terminal manager (current) drug therapy (4) long term care social worker systemic steroid user: Code(s): Z79.52 - long term care social worker (current) use of systemic steroids (5) Osteoporosis: Comment: Initially on alendronate -2020 stopped due to decline in eGFR. Prolia started 2 020 DEXA 09/22 at [facility] Spine Tscore -1.2; hip Tscore -1.6( both improved) Code(s): M81.0 - Age-related osteoporosis without current pathological fracture Qualifiers: Osteoporosis type: unspecified Presence of current pathological fracture: without current pathological fracture Qualified Code(s): M81.0 - Age- related osteoporosis without current pathological fracture (6) Seropositive rheumatoid arthritis: Comment: Disease onset in the . Rheumatoid factor and CCP antibody positive. Previous trials with methotrexate, Enbrel, Humira, Kevzara, Xeljanz, Simponi, sulfasalazine, Actemra- mostly ineffective. Some nausea with methotrexate at high doses. Orencia since 2019 with modest response but still requiring low- dose prednisone. Code(s): M05.9 - Rheumatoid arthritis with rheumatoid factor, unspecified Plan Rheumatoid arthritis with much in the way of deformity and fixed disease. I think for now they synovitis is reasonably well controlled with her complex regimen. It should be noted the CRP is normal. The LFTs looked good as did the CBC so we will continue with the methotrexate, Orencia, and prednisone as above. The GFR remains adequate and the calcium normal so I administered subcutaneous injection of 60 mg of the Prolia today. This was without apparent incident. We will see her back in about 3 months with lab work before that monitoring her methotrexate use. We would plan another visit at 6 months to give the Prolia to help with her osteoporosis. Orders: Orders C Reactive Protein Today M05.9 - Rheumatoid arthritis with rheumatoid factor, unspecified Complete Blood Count Auto Diff Today M05.9 - Rheumatoid arthritis with rheumatoid factor, unspecified, Z79.899 - Other assistant terminal manager (current) drug therapy Erythrocyte Sedimentation Rate Today M05.9 - Rheumatoid arthritis with rheumatoid factor, unspecified Comprehensive Met. Panel Today M05.9 - Rheumatoid arthritis with rheumatoid factor, unspecified AMB Denosumab Injection Practice Supplied Today M81.0 - Age-related osteoporosis without current pathological fracture Medications: New prednisone two tab in AM and one in PM; 90 tabs 5RF M05.9 - Rheumatoid arthritis with rheumatoid factor, unspecified Discontinued prednisone Discontinued Reason: Doctor's Order one tab in AM and 1/2 tab in PM daily 45 tabs 3RF M05.9 - Rheumatoid arthritis with rheumatoid factor, unspecified Coding Level of Care Code Est Pt Level 3 (66088) Diagnoses Primary osteoarthritis of hands, bilateral M19.041; M19.042 Lumbar spondylosis M47.816 Long-term use of immunosuppressant medication Z79.899 long term care social worker systemic steroid user Z79.52 Osteoporosis M81.0 Osteoporosis type: unspecified Presence of current pathological fracture: without current pathological fracture Seropositive rheumatoid arthritis M05.9
[2023-03-10 10:12] VITALS: BP 126/78; PULSE 79; O2SAT 95; BMI 35.1
== END 2023-03-10 11:06 | disposition home or self-care (01) ==
LOC: HO.RHE 10:03
PROVIDERS: PCP Family Medicine; Visit Provider Internal Medicine Rheumatology
DX: M19.041 Primary osteoarthritis, right hand (principal); M19.042 Primary osteoarthritis, left hand; M47.816 Spondylosis without myelopathy or radiculopathy, lumbar region; Z79.899 Other long term (current) drug therapy; Z79.52 Long term (current) use of systemic steroids; M81.0 Age-related osteoporosis without current pathological fracture; M05.9 Rheumatoid arthritis with rheumatoid factor, unspecified
CPT/HCPCS: 99213

== ENCOUNTER → 2023-03-10 10:03 | Outpatient (BNVA) | payer MEDICARE, SELFPAY | PROVIDERS: PCP Family Medicine; Visit Provider Internal Medicine Rheumatology | DX: M05.9 Rheumatoid arthritis with rheumatoid factor, unspecified (principal); M81.0 Age-related osteoporosis without current pathological fracture; M19.041 Primary osteoarthritis, right hand; M19.042 Primary osteoarthritis, left hand; M47.816 Spondylosis without myelopathy or radiculopathy, lumbar region; Z79.899 Other long term (current) drug therapy; Z79.52 Long term (current) use of systemic steroids | CPT/HCPCS: 96372; 99212; J0897 ==

== ENCOUNTER 2023-03-18 12:34 | Outpatient (REF) | payer MEDICARE, SELFPAY ==
[2023-03-18 13:06] LABS: MANUAL DIFF FLAG NO
[2023-03-18 13:12] LABS: Basophils Absolute Auto 0.1 X10*3/uL (0.0-0.2); Basophils Percent Auto 0.4 % (0-2); Eosinophils Absolute Auto 0.1 X10*3/uL (0.0-0.4); Eosinophils Percent Auto 0.8 % (0-4); Hematocrit 35.2 % (37.0-47.0); Hemoglobin 11.2 g/dl (12.0-16.0); Imm Gran Abs Auto 0.05 X10*3/uL (0.00-0.03); Imm Gran Pct Auto 0.4 % (0.0-0.4); Lymphocytes Absolute Auto 1.4 X10*3/uL (1.2-4.9); Mean Corpuscular HGB Conc 31.8 g/dl (31.0-35.0); Mean Corpuscular Hemoglobin 29.5 pg (27.0-33.0); Mean Corpuscular Volume 92.6 fL (80.0-98.0); Mean Platelet Volume 9.3 fL (9.4-12.3); Monocytes Absolute Auto 0.7 X10*3/uL (0.1-1.2); Neutrophils Absolute Auto 9.3 x10*3/uL (2.0-8.3); Neutrophils Percent Auto 80.4 % (45-73); Platelet Count 372 X10*3/uL (160-400); Red Cell Distribution Width 14.3 % (11.0-16.0); White Blood Count 11.5 X10*3/uL (4.8-10.8)
[2023-03-18 13:52] LABS: Alanine Aminotransferase 13 U/L (0-31); Albumin Level 4.2 g/dL (3.5-5.0); Alkaline Phosphatase 54 U/L (39-117); Anion Gap 15 (12-20); Aspartate Amino Transferase 16 U/L (5-31); Bilirubin Total 0.3 mg/dL (0.0-1.0); Blood Urea Nitrogen 7 mg/dL (9-16); Calcium 9.4 mg/dL (8.4-10.2); Carbon Dioxide 28 mmol/L (22-29); Chloride 99 mmol/L (96-108); Estimated Glomerular Filt Rate 49; Glucose Random 102 mg/dL (60-115); Iron 31 mcg/dL (30-160); Percent Iron Saturation 10 % (15-50); Potassium 4.5 mmol/L (3.3-5.1); Sodium 137 mmol/L (135-145); Total Iron Binding Capacity 297 mcg/dL (228-428); Total Protein 6.7 g/dL (6.5-8.0); Unsaturated Iron Binding 266 ug/dL
== END 2023-03-18 12:35 | disposition home or self-care (01) ==
LOC: HO.10HDL 12:34
PROVIDERS: Visit Provider Family Medicine
DX: R53.83 Other fatigue (principal); M06.9 Rheumatoid arthritis, unspecified; D50.9 Iron deficiency anemia, unspecified
CPT/HCPCS: 36415; 80053; 83540; 85025

== ENCOUNTER 2023-06-10 08:12 | Outpatient (REF) | payer MEDICARE, SELFPAY | END 2023-06-10 08:13 | disposition home or self-care (01) | LOC: HO.10HDL 08:12 | PROVIDERS: Visit Provider Internal Medicine Rheumatology | DX: M05.9 Rheumatoid arthritis with rheumatoid factor, unspecified (principal); Z79.899 Other long term (current) drug therapy | CPT/HCPCS: 36415; 80053; 85025; 85652; 86140 ==

== ENCOUNTER 2023-06-11 10:17 | Outpatient (AMB) | payer MEDICARE, SELFPAY ==
--- NOTE | 2023-06-11 10:19 | MHC.OFFVIS ---
Intake Vital Signs 06/11/23 10:31 Height 5 ft 2 in Weight 192 lb 7.417 oz BMI 35.2 BP 104/66 Blood Pressure Location Lt brachial Position Sitting Pulse 81 Pulse Source Pulse Oximeter Pulse Oximetry (%) 97 Oxygen Delivery Method Room Air Intake Visit Reasons: RA Intake Note: Patient presents to office today for RA follow up. Consulting Solution Director Required: No Accompanied by: Self / Same As Patient Allergies morphine Allergy (Unknown, Verified 06/11/23 10:31) hallucinations Clindamycin HCl Allergy (Severe, Uncoded 06/11/23 10:) diarrhea mustard Allergy (Unknown, Uncoded 06/11/23 10:31) Unknown sugar substitute Allergy (Unknown, Uncoded 06/11/23 10:) Unknown HPI HPI Comments History of Present Illness Details Ms. Giraldo, 68yoF, returns for follow-up of her rheumatoid arthritis and osteoporosis. She remains on prednisone 5 mg the morning and 2.5 mg in the evening, methotrexate 10 mg weekly, Orencia 125 mg every week, and occasional ibuprofen. In general the joints have been stable. However, she continues with pain in her ankles, knees and hands when she is more active. She has joined a health club with the financial assistance of her insurer. She has been swimming in an 80 degree pool. She does find this very helpful although is a bit sore in the muscles after doing this. She denies redness or bruising, shortness of breath, cough, fever or chills. She also reports back pain and thinks that back pain is worsened with using the walker. She does realize that keeping her posture erect helps with her back pain. She remains on Prolia injections every 6 months and is due September 2023. [facility] Medical History (Updated 12/10/22 @ 12:11 by Julio Cuevas MD) Iron deficiency anemia Primary osteoarthritis of hands, bilateral Lumbar spondylosis Long-term use of immunosuppressant medication Osteoporosis Seropositive rheumatoid arthritis Surgical History History of total left knee replacement (TKR) Social History Alcohol intake: never Patient Tobacco Use Status: Former Tobacco user Tobacco use type: Cigarette Cigarettes Per Day: 2 Years Smoked: 7 e-Cigarette/Vaping Use: Never Used Review of Systems Const Details: She has more energy now that she is doing some physical activity in the pool and exercises with the help of PT. Negative for appetite change, weight change, fever, chills, malaise and fatigue Eyes Details: Negative for vision change, dry eyes,headaches and dizziness ENT Details: Negative for hearing change, tinnitus, oral ulcer, nose bleeds and oral dryness. Card Details: HTN. Negative chest pain, edema and syncope Resp Details: Negative for SOB, cough and wheezing GI Details: Takes Pantoprazole. Negative for nausea, abdominal pain, bowel changes, diarrhea, constipation and bloody stool. Details: Bladder Colonized. Takes Methenamine Hippurate Musc Details: Uses a Wheelchair Skin/Breast Details: Negative for itching, rash, hives, Raynaud's symptoms, sun sensitivity, and skin cancer Ron/Lymph Details: Anemia. Negative for excessive bruising or bleeding. Physical Exam Vital Signs: Last Vital Signs Pulse 81 06/11/23 10:31 BP 104/66 06/11/23 10:31 Pulse Ox 97 06/11/23 10:31 Oxygen Delivery Method Room Air 06/11/23 10:31 BMI result Body Mass Index 35.2 APPEARANCE: Patient in no acute distress. Uses a wheelchair EYES no redness, pupils equal and reactive to light, eyelids normal THROAT: Oral mucosa moist, no ulcerations NECK: No thyromegaly or masses, no adenopathy, trachea midline. HEART: Regulrar rhythm, S1-S2 heard, no murmurs, rubs or gallops. LUNG: Clear to percussion and auscultation. Diminished in the bases EXTREMITIES: No edema, no calf tenderness, normal peripheral pulses. JOINT EXAM: Cervical Spine:.? Full range of motion with mild pain; no tenderness. Thoracic Spine:.? No scoliosis.? No tenderness on palpation. Lumbar Spine:.? Alignment normal.? Mild pain with extremes of motion.? No tenderness. Hands:? Right:? There is mild swelling and flexion deformity of the 1st 3 MCP joints with no tenderness or pain with motion of those joints.? ? There is no redness or warmth appreciated.? There is some bony enlargement at the thumb IP and 5th PIP with minimal tenderness.? There is? questionable sensory loss at the 4th and 5th fingertips.? I do not detect any flexion tender trigger triggering.? All the DIP joints have moderate bony enlargement with tenderness.? Left:?? there is [id number] swelling of the MCP joints with some tenderness at the 3rd and 4th MCP..?? There is tenderness at the CMC joint in the thumb MCP.? All the DIPs have PIP bony enlargement with tenderness. Wrists:.? Bilateral Ulnar drift and subluxation of MCP joints. Right:?Discomfort with flexion or extension at 75 degrees with?dorsal tenderness but no swelling.? Left:?? mild to moderate swelling and mild pain with flexion or extension is 45 degrees,? There is some tenderness and bony enlargement at the base of the thumb but no redness or warmth. Elbows:.? Right: Tenderness at the right elbow where she lacks about 15 degrees of full extension.? Left:?? mild pain with extension.? She lacks about 20 degrees of full extension.? There is mild tenderness over the joint space but no increased warmth or erythema. palpation of the ulnar region results in some paresthesias in the left 4th 5th fingertips. Shoulders:.?? Mild pain with abduction 150 degrees with extremes of rotation.? Mild anterior tenderness with questionable weakness but no swelling, increased warmth or erythema. Hips:.? The patient is in the wheelchair.? Hips not adequately examination today. Hip bursa:.? No tenderness. Knees:.?? Right:? Slight pain with extremes of motion and some minimal medial tenderness there is mild patellofemoral crepitus but no redness, warmth or effusion.? Left: Mild pain with more than 75 degrees flexion.? There is valgus deformity of the knee with medial lateral tenderness and some slight thickening but no redness or warmth.? There is evidence of previous surgery at the knee. Ankles:? Mild tenderness and pain with motion.? No soft tissue? swelling, increased warmth or erythema. Results Reviewed Results Reviewed: Laboratory Tests 06/10/23 08:20 RBC 3.52 L Hgb 10.5 L Hct 32.8 L Neut % (Auto) 82.8 H Lymph % (Auto) 11.1 L Lymph # (Auto) 0.9 L BUN 6 L Assessment & Plan Assessment & Plan (1) Seropositive rheumatoid arthritis: Comment: Disease onset in the . Rheumatoid factor and CCP antibody positive. Previous trials with methotrexate, Enbrel, Humira, Kevzara, Xeljanz, Simponi, sulfasalazine, Actemra- mostly ineffective. Some nausea with methotrexate at high doses. Orencia since 2019 with modest response but still requiring low-dose prednisone. Code(s): M05.9 - Rheumatoid arthritis with rheumatoid factor, unspecified (2) Primary osteoarthritis of hands, bilateral: Code(s): M19.041 - Primary osteoarthritis, right hand; M19.042 - Primary osteoarthritis, left hand (3) Lumbar spondylosis: Code(s): M47.816 - Spondylosis without myelopathy or radiculopathy, lumbar region (4) Long-term use of immunosuppressant medication: Code(s): Z79.899 - Other intermediate project manager (current) drug therapy (5) halfway systemic steroid user: Code(s): Z79.52 - halfway (current) use of systemic steroids (6) Osteoporosis: Comment: Initially on alendronate -2019 stopped due to decline in eGFR. Prolia started 2019 DEXA 09/22 at [facility] Spine Tscore -1.2; hip Tscore -1.6( both improved) Code(s): M81.0 - Age-related osteoporosis without current pathological fracture Qualifiers: Osteoporosis type: unspecified Presence of current pathological fracture: without current pathological fracture Qualified Code(s): M81.0 - Age-related osteoporosis without current pathological fracture (7) Iron deficiency anemia: Comment: October 2021. Ferrous sulfate begun Code(s): D50.9 - Iron deficiency anemia, unspecified Plan Rheumatoid arthritis - Ulnar deformity and joint subluxation. For now, the synovitis is reasonably controlled with her complex regimen, with a normal CRP. The LFTs are WNL land CBC is reasonable for us to continue with the methotrexate, Orencia, and prednisone. The GFR remains adequate for MTX. Osteoarthritis/Lumbar Spondylosis: With regards to the OA, given the severity of of the nodes and deformity and tenderness in the DIP joints, the swelling to the CMC joint that happens intermittently, I suspect this may be inflammatory OA. I discussed with patient that this pain will not likely respond to the immunomodulator medications. Encouraged her to do more of the things that provide relief such as warmth, cool, waxing, exercises and topical analgesics and Tylenol as tolerated. She has tenderness and palpation to the lumbar paraspinal muscles and gluteus medius buttocks muscle - recommend stretching and topical analgeisics such as voltaren gel and continue with exercises - Patient will ask PT to help with strengthening her core and back muscles and gluteus muscles. We will see her back in about 4 months with lab work for monitoring her methotrexate use. Anemia: Possible SONIA - there is further decrease in RBC, Hct and Hgb compared to 03/2023 labs. Will continue to monitor as MTX can contribute myelosuppression. PLT and WBC are WNL. Patient will be seeing PCP 06/12/23 - recommend she discuss restarting iron supplements. Also recommend she discuss with PCP taking Ensure as s supplement to increase protein intake. Next Prolia injection September 2023. Orders: Orders Alanine Aminotransferase 4 Months Z79.899 - Other long-term (current) drug therapy Aspartate Amino Transferase 4 Months Z79.899 - Other intermediate project manager (current) drug therapy Creatinine 4 Months Z79.899 - Other intermediate project manager (current) drug therapy Erythrocyte Sedimentation Rate 4 Months M05.9 - Rheumatoid arthritis with rheumatoid factor, unspecified, M19.041 - Primary osteoarthritis, right hand, M19.042 - Primary osteoarthritis, left hand, Z79.899 - Other intermediate project manager (current) drug therapy C Reactive Protein 4 Months M05.9 - Rheumatoid arthritis with rheumatoid factor, unspecified, Z79.899 - Other intermediate project manager (current) drug therapy Complete Blood Count Auto Diff 4 Months Z79.899 - Other intermediate project manager (current) drug therapy Coding Level of Care Code Est Pt Level 3 (32512) Diagnoses Seropositive rheumatoid arthritis M05.9 Primary osteoarthritis of hands, bilateral M19.041; M19.042 Lumbar spondylosis M47.816 Long-term use of immunosuppressant medication Z79.899 halfway systemic steroid user Z79.52 Osteoporosis without current pathological fracture, unspecified osteoporosis type M81.0 Osteoporosis type: unspecified Presence of current pathological fracture: without current pathological fracture Iron deficiency anemia D50.9
[2023-06-11 10:31] VITALS: BP 104/66; PULSE 81; O2SAT 97; BMI 35.2
== END 2023-06-11 11:07 | disposition home or self-care (01) ==
PROVIDERS: PCP Family Medicine; Visit Provider Nurse Practitioner Family
DX: M05.79 Rheumatoid arthritis with rheumatoid factor of multiple sites without organ or systems involvement (principal); M19.041 Primary osteoarthritis, right hand; M19.042 Primary osteoarthritis, left hand; M47.816 Spondylosis without myelopathy or radiculopathy, lumbar region; Z79.899 Other long term (current) drug therapy; Z79.52 Long term (current) use of systemic steroids; M81.0 Age-related osteoporosis without current pathological fracture; D50.9 Iron deficiency anemia, unspecified
CPT/HCPCS: 99214

== ENCOUNTER → 2023-06-11 10:17 | Outpatient (BNVA) | payer MEDICARE, SELFPAY | PROVIDERS: PCP Family Medicine; Visit Provider Nurse Practitioner Family | DX: M05.9 Rheumatoid arthritis with rheumatoid factor, unspecified (principal); M19.041 Primary osteoarthritis, right hand; M19.042 Primary osteoarthritis, left hand; M47.816 Spondylosis without myelopathy or radiculopathy, lumbar region; M81.0 Age-related osteoporosis without current pathological fracture; D50.9 Iron deficiency anemia, unspecified; Z79.52 Long term (current) use of systemic steroids; Z79.620 Long term (current) use of immunosuppressive biologic; Z79.631 Long term (current) use of antimetabolite agent | CPT/HCPCS: 99212 ==

== ENCOUNTER 2023-08-12 14:04 | Outpatient (REF) | payer MEDICARE, SELFPAY ==
[2023-08-12 14:17] LABS: MANUAL DIFF FLAG NO
[2023-08-12 14:54] LABS: Basophils Percent Auto 0.5 % (0-2); Eosinophils Absolute Auto 0.1 X10*3/uL (0.0-0.4); Eosinophils Percent Auto 1.8 % (0-4); Hematocrit 32.6 % (37.0-47.0); Hemoglobin 10.3 g/dl (12.0-16.0); Imm Gran Abs Auto 0.03 X10*3/uL (0.00-0.03); Imm Gran Pct Auto 0.4 % (0.0-0.4); Lymphocytes Absolute Auto 1.9 X10*3/uL (1.2-4.9); Lymphocytes Percent Auto 24.5 % (20-40); Mean Corpuscular HGB Conc 31.6 g/dl (31.0-35.0); Mean Corpuscular Hemoglobin 28.8 pg (27.0-33.0); Mean Corpuscular Volume 91.1 fL (80.0-98.0); Mean Platelet Volume 9.9 fL (9.4-12.3); Monocytes Absolute Auto 0.7 X10*3/uL (0.1-1.2); Monocytes Percent Auto 9.6 % (2-11); Neutrophils Absolute Auto 4.9 x10*3/uL (2.0-8.3); Neutrophils Percent Auto 63.2 % (45-73); Platelet Count 318 X10*3/uL (160-400); Red Blood Count 3.58 X10*6/uL (4.20-5.50); Red Cell Distribution Width 13.9 % (11.0-16.0); White Blood Count 7.7 X10*3/uL (4.8-10.8)
[2023-08-12 15:36] LABS: Alanine Aminotransferase 12 U/L (0-31); Anion Gap 12 (12-20); Aspartate Amino Transferase 20 U/L (5-31); Blood Urea Nitrogen 8 mg/dL (9-16); Carbon Dioxide 26 mmol/L (22-29); Chloride 101 mmol/L (96-108); Estimated Glomerular Filt Rate 49; Iron 39 mcg/dL (30-160); Percent Iron Saturation 15 % (15-50); Potassium 4.3 mmol/L (3.3-5.1); Sodium 135 mmol/L (135-145); Total Iron Binding Capacity 267 mcg/dL (228-428); Unsaturated Iron Binding 228 ug/dL
== END 2023-08-12 14:05 | disposition home or self-care (01) ==
LOC: HO.LAB 14:04
PROVIDERS: PCP Family Medicine; Visit Provider Family Medicine
DX: I10 Essential (primary) hypertension (principal); D50.9 Iron deficiency anemia, unspecified; E78.00 Pure hypercholesterolemia, unspecified; Z79.899 Other long term (current) drug therapy
CPT/HCPCS: 36415; 80051; 82550; 82565; 83540; 84450; 84460; 84520; 85025

== ENCOUNTER 2023-10-24 12:02 | Outpatient (AMB) | payer MEDICARE, SELFPAY ==
--- NOTE | 2023-10-24 12:32 | A.OFFVIS_ITS ---
Intake Vital Signs 10/24/23 12:44 Height 5 ft 2 in BMI Reason not done Patient refused/unable BP 100/64 Blood Pressure Location Rt brachial Position Sitting Pulse 82 Pulse Source Pulse Oximeter Pulse Oximetry (%) 96 Oxygen Delivery Method Room Air Comment On Wheelchair, Last WT 190, unsure when it was taken Intake Visit Reasons: RA Intake Note: Patient last seen 06/11/23, presents today for follow up and test results. Patient due for Prolia today[facility] like sx's. Knee xr was obtained. c/o sofia wrist swelling Accompanied by: Self / Same As Patient Allergies morphine Allergy (Unknown, Verified 10/24/23 12:34) hallucinations Clindamycin HCl Allergy (Severe, Uncoded 10/24/23 12:34) diarrhea mustard Allergy (Unknown, Uncoded 10/24/23 12:34) Unknown sugar substitute Allergy (Unknown, Uncoded 10/24/23 12:34) Unknown HPI HPI Comments History of Present Illness Details Ms. Giraldo, 68yoF, returns for follow-up of her rheumatoid arthritis and osteoporosis. She remains on prednisone 5 mg the morning and 2.5 mg in the evening, methotrexate 10 mg weekly, Orencia 125 mg every week, and occasional ibuprofen. In general the joints have been stable. However, she continues with some pain in her ankles, knees and hands when she is more active. She thinks she is flaring in the elbow and wrists today as they were swollen. She has not been able to go to the health club because she has not been feeling well. she was hospitalized 10/06/2022 for dehydration and was replenished with IV fluids. She reports she has increase her water intake since then. She denies redness or bruising, shortness of breath, cough, fever or chills. She remains on Prolia injections every 6 months and gets a dose today. [facility] Medical History (Updated 12/10/22 @ 12:11 by Julio Cuevas MD) Iron deficiency anemia Primary osteoarthritis of hands, bilateral Lumbar spondylosis Long-term use of immunosuppressant medication Osteoporosis Seropositive rheumatoid arthritis Surgical History History of total left knee replacement (TKR) Social History (Reviewed 02/23/24 @ 12:34 by MARIE Issa Alcohol intake: never Patient Tobacco Use Status: Former Tobacco user Tobacco use type: Cigarette Cigarettes Per Day: 2 Years Smoked: 7 e-Cigarette/Vaping Use: Never Used Review of Systems Const All systems reviewed & are unremarkable except as noted in HPI and below Physical Exam Vital Signs: Last Vital Signs Pulse 82 10/24/23 12:44 BP 100/64 10/24/23 12:44 Pulse Ox 96 10/24/23 12:44 Oxygen Delivery Method Room Air 10/24/23 12:44 APPEARANCE: Patient in no acute distress. Uses a wheelchair EYES no redness, eyelids normal THROAT: Oral mucosa moist, no ulcerations NECK: No thyromegaly or masses, no adenopathy, trachea midline. HEART: Regular rhythm, S1-S2 heard, no murmurs, rubs or gallops. LUNG: Clear to percussion and auscultation. Diminished in the bases EXTREMITIES: No edema, no calf tenderness, normal peripheral pulses. JOINT EXAM: Cervical Spine:.? Full range of motion with mild pain; no tenderness. Thoracic Spine:.? No scoliosis.? No tenderness on palpation. Lumbar Spine:.? Alignment normal.? Mild pain with extremes of motion.? No tenderness. Hands:? Right:? There is mild swelling and flexion deformity of the 1st 3 MCP joints with some tenderness and mild pain with motion of those joints.? ? There is no redness or warmth appreciated.? There is some bony enlargement at the thumb IP and 5th PIP with minimal tenderness.? There is? questionable sensory loss at the 4th and 5th fingertips.? I do not detect any flexion tender trigger triggering.? All the DIP joints have moderate bony enlargement with tenderness.? Left:?? there is [id number] swelling of the MCP joints with some tenderness at the 3rd and 4th MCP..?? There is tenderness at the CMC joint in the thumb MCP.? All the DIPs have PIP bony enlargement with mild tenderness. Wrists:.? Bilateral Ulnar drift and subluxation of MCP joints. Right:?Discomfort with flexion or extension at 75 degrees with?dorsal tenderness and trace swelling.? Left:?? mild swelling and mild pain with flexion or extension is 45 degrees,? There is some tenderness and bony enlargement at the base of the thumb but no redness or warmth. mild to moerate Tenderness at ulnar styloids L>R Elbows:.? Right: Tenderness at the right elbow where she lacks about 15 degrees of full extension.? Left:?? mild pain with extension.? She lacks about 20 degrees of full extension.? There is mild tenderness over the joint space but no increased warmth or erythema. palpation of the ulnar region results in some paresthesias in the left 4th 5th fingertips. Shoulders:.?? Mild pain with abduction 150 degrees with extremes of rotation.? Mild anterior tenderness with questionable weakness but no swelling, increased warmth or erythema. Hips:.? The patient is in the wheelchair.? Hips not adequately examined. Hip bursa:.? mild tenderness. Knees:.?? Right:? Slight pain with extremes of motion and some minimal medial tenderness there is mild patellofemoral crepitus but no redness, warmth or effusion.? Left: Mild pain with more than 75 degrees flexion.? There is valgus deformity of the knee with medial lateral tenderness and some slight thickening but no redness or warmth.? There is evidence of previous surgery at the knee. Ankles:? Mild tenderness and pain with motion.? No soft tissue? swelling, increased warmth or erythema. pes planus with valgus deformity to left of ankle. Office Meds Prolia 60 mg/mL subcutaneous syringe Performing Provider: AARON Hurst Performing Location: [facility] Administered by: Tatianna Walters RN on 10/24/23 13:40 Dose Route Admin Location Dispensed Lot Number Expiration Date [facility] Regional Cra 60 mg subcut right arm 1 mL [id number] 01/29/26 [id number] [employer] Results Reviewed Results Reviewed: Laboratory Tests 06/10/23 08/12/23 08:20 14:13 WBC 7.7 RBC 3.58 L Hgb 10.3 L Hct 32.6 L Creatinine 1.11 Estimated GFR 49 Total Creatine Kinase 165 H C-Reactive Protein 0.37 Assessment & Plan Assessment & Plan (1) Seropositive rheumatoid arthritis: Comment: Disease onset in the . Rheumatoid factor and CCP antibody positive. Previous trials with methotrexate, Enbrel, Humira, Kevzara, Xeljanz, Simponi, sulfasalazine, Actemra- mostly ineffective. Some nausea with methotrexate at high doses. Orencia since 2019 with modest response but still requiring low- dose prednisone. Code(s): M05.9 - Rheumatoid arthritis with rheumatoid factor, unspecified (2) Primary osteoarthritis of hands, bilateral: Code(s): M19.041 - Primary osteoarthritis, right hand; M19.042 - Primary osteoarthritis, left hand (3) Lumbar spondylosis: Code(s): M47.816 - Spondylosis without myelopathy or radiculopathy, lumbar region (4) Long-term use of immunosuppressant medication: Code(s): Z79.899 - Other remote computer terminal operator (current) drug therapy (5) long-term systemic steroid user: Code(s): Z79.52 - long-term (current) use of systemic steroids (6) Osteoporosis: Comment: Initially on alendronate -2019 stopped due to decline in eGFR. Prolia started 2019 DEXA 09/22 at [facility] Spine Tscore -1.2; hip Tscore -1.6( both improved) Code(s): M81.0 - Age-related osteoporosis without current pathological fracture Qualifiers: Osteoporosis type: unspecified Presence of current pathological fracture: without current pathological fracture Qualified Code(s): M81.0 - Age- related osteoporosis without current pathological fracture Plan #Rheumatoid arthritis/Technical Support 1 Software Engineer Use:- Ulnar deformity and joint subluxation shows the severity of her disease. The RA is reasonably controlled with her complex regimen, with a normal CRP. Still some elevation in ESR (38). She had a virus and went to hospital for hydration which could also contribute to the current RA flare to Hands - I will increase Prednisone 10 mg x 2 weeks, and increase MTX to 5 pills. Will consider increasing MTX to 6 pills at next visit. I think that will be tolerable. The LFTs are WNL and CBC is reasonable for us to continue with the methotrexate, Orencia, and prednisone. The GFR remains adequate for MTX. #Osteoarthritis/Lumbar Spondylosis: With regards to the OA, given the severity o f of the DIP nodes and deformity and tenderness in the DIP joints, the swelling to the CMC joint that happens intermittently, I suspect there may be an element of inflammatory OA. I discussed with patient that this pain will not likely respond to the immunomodulator medications. Encouraged her to do more of the things that provide relief such as warmth, cool, waxing, exercises and topical analgesics and Tylenol as tolerated. #Anemia: Possible SONIA - SONIA is stable at this time. Patient was not put on IRON supplements. Per patient the PCP does not think it will help because she may not absorbing the iron. Will continue to monitor as MTX can contribute myelosuppression. PLT and WBC are WNL. #Osteoporosis: Next Prolia injection March 2024. We will see her back in about 4 months with lab work 1 week before next visit. Orders: Orders C Reactive Protein 4 Months M05.9 - Rheumatoid arthritis with rheumatoid factor, unspecified, Z79.899 - Other remote computer terminal operator (current) drug therapy Alanine Aminotransferase 4 Months M05.9 - Rheumatoid arthritis with rheumatoid factor, unspecified, Z79.899 - Other remote computer terminal operator (current) drug therapy Aspartate Amino Transferase 4 Months M05.9 - Rheumatoid arthritis with rheumatoid factor, unspecified, Z79.899 - Other usp (current) drug therapy Creatinine 4 Months M05.9 - Rheumatoid arthritis with rheumatoid factor, unspecified, Z79.899 - Other usp (current) drug therapy AMB Denosumab Injection Patient Supplied 10/24/23 M81.0 - Age-related osteoporosis without current pathological fracture Erythrocyte Sedimentation Rate 4 Months M05.9 - Rheumatoid arthritis with rheumatoid factor, unspecified, Z79.899 - Other usp (current) drug therapy Complete Blood Count Auto Diff 4 Months M05.9 - Rheumatoid arthritis with rheumatoid factor, unspecified, Z79.899 - Other remote computer terminal operator (current) drug therapy Medications: Changed From methotrexate sodium 10 mg (4 x 2.5 mg) PO QWEEK 48 tabs 1RF M05.9 - Rheumatoid arthritis with rheumatoid factor, unspecified To methotrexate sodium 12.5 mg (5 x 2.5 mg) PO QWEEK 60 tabs 1RF M05.9 - Rheumatoid arthritis with rheumatoid factor, unspecified Coding Level of Care Code Est Pt Level 3 (71870) Diagnoses Seropositive rheumatoid arthritis M05.9 Primary osteoarthritis of hands, bilateral M19.041; M19.042 Lumbar spondylosis M47.816 Long-term use of immunosuppressant medication Z79.899 watermelon harvesting supervisor systemic steroid user Z79.52 Osteoporosis without current pathological fracture, unspecified osteoporosis type M81.0 Osteoporosis type: unspecified Presence of current pathological fracture: without current pathological fracture
[2023-10-24 12:44] VITALS: BP 100/64; PULSE 82; O2SAT 96
== END 2023-10-24 13:23 | disposition home or self-care (01) ==
PROVIDERS: PCP Family Medicine; Visit Provider Nurse Practitioner Family
DX: M05.79 Rheumatoid arthritis with rheumatoid factor of multiple sites without organ or systems involvement (principal); M19.041 Primary osteoarthritis, right hand; M19.042 Primary osteoarthritis, left hand; M47.816 Spondylosis without myelopathy or radiculopathy, lumbar region; Z79.899 Other long term (current) drug therapy; Z79.52 Long term (current) use of systemic steroids; M81.0 Age-related osteoporosis without current pathological fracture
CPT/HCPCS: 99214

== ENCOUNTER → 2023-10-24 12:02 | Outpatient (BNVA) | payer MEDICARE, SELFPAY | PROVIDERS: PCP Family Medicine; Visit Provider Nurse Practitioner Family | DX: M05.9 Rheumatoid arthritis with rheumatoid factor, unspecified (principal); M19.041 Primary osteoarthritis, right hand; M19.042 Primary osteoarthritis, left hand; M47.816 Spondylosis without myelopathy or radiculopathy, lumbar region; M81.0 Age-related osteoporosis without current pathological fracture; Z79.52 Long term (current) use of systemic steroids; Z79.899 Other long term (current) drug therapy | CPT/HCPCS: 96372; 99212; J0897 ==

== ENCOUNTER 2023-10-30 09:54 | Outpatient (REF) | payer MEDICARE, SELFPAY ==
[2023-10-30 10:54] LABS: MANUAL DIFF FLAG NO
[2023-10-30 11:06] LABS: Basophils Percent Auto 0.7 % (0-2); Eosinophils Absolute Auto 0.1 X10*3/uL (0.0-0.4); Eosinophils Percent Auto 2.1 % (0-4); Hematocrit 30.3 % (37.0-47.0); Lymphocytes Absolute Auto 1.6 X10*3/uL (1.2-4.9); Mean Corpuscular Hemoglobin 29.3 pg (27.0-33.0); Mean Corpuscular Volume 88.9 fL (80.0-98.0); Monocytes Absolute Auto 0.6 X10*3/uL (0.1-1.2); Monocytes Percent Auto 9.8 % (2-11); Neutrophils Absolute Auto 3.4 x10*3/uL (2.0-8.3); Neutrophils Percent Auto 59.4 % (45-73); Platelet Count 257 X10*3/uL (160-400); Red Blood Count 3.41 X10*6/uL (4.20-5.50); Red Cell Distribution Width 14.4 % (11.0-16.0); White Blood Count 5.7 X10*3/uL (4.8-10.8)
[2023-10-30 11:34] LABS: Alanine Aminotransferase 12 U/L (0-31); Albumin Level 3.8 g/dL (3.5-5.0); Alkaline Phosphatase 60 U/L (39-117); Anion Gap 10 (12-20); Aspartate Amino Transferase 19 U/L (5-31); Bilirubin Total 0.3 mg/dL (0.0-1.0); Blood Urea Nitrogen 6 mg/dL (9-16); C Reactive Protein 0.25 mg/dL (< or = 0.50); Calcium 9.1 mg/dL (8.4-10.2); Carbon Dioxide 24 mmol/L (22-29); Chloride 103 mmol/L (96-108); Estimated Glomerular Filt Rate 53; Glucose Random 82 mg/dL (60-115); Potassium 4.4 mmol/L (3.3-5.1); Sodium 133 mmol/L (135-145); Total Protein 6.1 g/dL (6.5-8.0)
[2023-10-30 11:45] LABS: Erythrocyte Sedimentation Rate 23 MM/HR (0-20)
[2023-11-06 13:03] LABS: VITAMIN D (1,25 OH) D3 38 pg/mL; Vit D (1,25-Dihydroxy) Total 38 pg/mL (18-72); Vitamin D (1,25 OH) D2 <8 pg/mL
== END 2023-10-30 09:55 | disposition home or self-care (01) ==
LOC: HO.10HDL 09:54
PROVIDERS: Referring Provider Family Medicine; Visit Provider Nurse Practitioner Family
DX: M81.0 Age-related osteoporosis without current pathological fracture (principal); E87.1 Hypo-osmolality and hyponatremia; M05.9 Rheumatoid arthritis with rheumatoid factor, unspecified; M19.041 Primary osteoarthritis, right hand; M19.042 Primary osteoarthritis, left hand; Z79.899 Other long term (current) drug therapy; Z79.52 Long term (current) use of systemic steroids
CPT/HCPCS: 36415; 80053; 82652; 85025; 85652; 86140

== ENCOUNTER 2024-01-07 09:22 | Outpatient (AMB) | payer MEDICARE, SELFPAY ==
--- NOTE | 2024-01-07 09:23 | A.OFFVIS_ITS ---
Vital Signs 01/07/24 09:24 Height 5 ft 2 in BP 102/64 Blood Pressure Location Rt brachial Position Sitting Pulse 86 Pulse Source Pulse Oximeter Pulse Oximetry (%) 97 Oxygen Delivery Method Room Air Intake Visit Reasons: RA Intake Note: Patient presents today for multiple joint pain. Patient report her neck and back are killing her, 7-8 on a 0-10 pain scale. Mobility Developer Required: No Accompanied by: Self / Same As Patient Allergies morphine Allergy (Unknown, Verified 01/07/24 09:24) hallucinations Clindamycin HCl Allergy (Severe, Uncoded 01/07/24 09:24) diarrhea mustard Allergy (Unknown, Uncoded 01/07/24 09:24) Unknown sugar substitute Allergy (Unknown, Uncoded 01/07/24 09:24) Unknown HPI Comments Details: Ms. Giraldo, 68yoF, returns for follow-up of her rheumatoid arthritis and osteoporosis. Since last visit, she was hospitalized and found to have fractures to her cervical and lumbar spines. She was recommended for surgery at [facility] but opted out and wants to do it at [facility]. She remains on prednisone 5 mg the morning and 2.5 mg in the evening, methotrexa te 10 mg weekly, Orencia 125 mg every week, and occasional ibuprofen. In general the joints have been stable. She did obtain shoes with high tops and she says they have been very helpful with reducing the soreness to her ankles. She also says that the extra left of the insert makes it better. 10/24/2023 Visit Ms. Giraldo, 68yoF, returns for follow-up of her rheumatoid arthritis and osteoporosis. She remains on prednisone 5 mg the morning and 2.5 mg in the evening, methotrexate 10 mg weekly, Orencia 125 mg every week, and occasional ibuprofen. In general the joints have been stable. However, she continues with some pain in her ankles, knees and hands when she is more active. She thinks she is flaring in the elbow and wrists today as they were swollen. She has not been able to go to the health club because she has not been feeling well. she was hospitalized 10/06/2022 for dehydration and was replenished with IV fluids. She reports she has increase her water intake since then. She denies redness or bruising, shortness of breath, cough, fever or chills. She remains on Prolia injections every 6 months and gets a dose today. [facility] Medical History (Updated 01/09/24 @ 00:34 by AARON Hurst) Other specified nutritional deficiencies Multiple fractures of cervical spine Iron deficiency anemia Primary osteoarthritis of hands, bilateral Lumbar spondylosis Long-term use of immunosuppressant medication Osteoporosis Seropositive rheumatoid arthritis Surgical History History of total left knee replacement (TKR) Social History Alcohol intake: never Patient Tobacco Use Status: Former Tobacco user Tobacco use type: Cigarette Cigarettes Per Day: 2 Years Smoked: 7 e-Cigarette/Vaping Use: Never Used Review of Systems Const All systems reviewed & are unremarkable except as noted in HPI and below Physical Exam Vital Signs: Last Vital Signs Pulse 86 01/07/24 09:24 BP 102/64 01/07/24 09:24 Pulse Ox 97 01/07/24 09:24 Oxygen Delivery Method Room Air 01/07/24 09:24 APPEARANCE: Patient in no acute distress. Uses a wheelchair EYES no redness, eyelids normal THROAT: Oral mucosa moist, no ulcerations NECK: No thyromegaly or masses, no adenopathy, trachea midline. HEART: Regular rhythm, S1-S2 heard, no murmurs, rubs or gallops. LUNG: Clear to percussion and auscultation. Diminished in the bases EXTREMITIES: No edema, no calf tenderness, normal peripheral pulses. JOINT EXAM: Cervical Spine:.? Full range of motion with mild pain; no tenderness. Thoracic Spine:.? No scoliosis.? No tenderness on palpation. Lumbar Spine:.? Alignment normal.? Mild pain with extremes of motion.? No tenderness. Hands:? Right:? There is mild swelling and flexion deformity of the 1st 3 MCP joints with mild tenderness.? ? There is no redness or warmth appreciated.? There is some bony enlargement at the thumb IP and 5th PIP with minimal tenderness.? There is? questionable sensory loss at the 4th and 5th fingertips.? I do not detect any flexion tender trigger triggering.? All the DIP joints have moderate bony enlargement.? Left:?? there is [id number] swelling of the MCP joints with some tenderness at the 3rd and 4th MCP..?? There is tenderness at the CMC joint in the thumb MCP.? All the DIPs have PIP bony enlargement with mild tenderness. Wrists:.? Bilateral Ulnar drift and subluxation of MCP joints. Right:?Discomfort with flexion or extension at 75 degrees with?dorsal tenderness and trace swelling.? Left:?? mild swelling and mild pain with flexion or extension is 45 degrees,? There is some tenderness and bony enlargement at the base of the thumb but no redness or warmth. mild to moerate Tenderness at ulnar styloids L>R has resolved Elbows:.? Right: Tenderness at the right elbow where she lacks about 15 degrees of full extension.? Left:?? mild pain with extension.? She lacks about 20 degrees of full extension.? There is mild tenderness over the joint space but no increased w armth or erythema. palpation of the ulnar region results in some paresthesias in the left 4th 5th fingertips. Shoulders:.?? Mild pain with abduction 150 degrees with extremes of rotation.? Mild anterior tenderness with questionable weakness but no swelling, increased warmth or erythema. Hips:.? The patient is in the wheelchair.? Hips not adequately examined. Hip bursa:.? mild tenderness. Knees:.?? Right:? Slight pain with extremes of motion and some minimal medial tenderness there is mild patellofemoral crepitus but no redness, warmth or effusion.? Left: Mild pain with more than 75 degrees flexion.? There is valgus deformity of the knee with medial lateral tenderness and some slight thickening but no redness or warmth.? There is evidence of previous surgery at the knee. Ankles:? Mild tenderness and pain with motion.? No soft tissue? swelling, increased warmth or erythema. pes planus with valgus deformity to left of ankle. Results Reviewed Results Reviewed: Laboratory Tests 01/07/24 10:40 WBC 10.4 RBC 3.81 L Hgb 11.2 L Hct 34.2 L Laboratory Tests 01/07/24 10:40 Creatinine 0.95 AST 15 ALT 12 Alkaline Phosphatase 63 Assessment & Plan Assessment & Plan (1) Seropositive rheumatoid arthritis: Comment: Disease onset in the . Rheumatoid factor and CCP antibody positive. Previous trials with methotrexate, Enbrel, Humira, Kevzara, Xeljanz, Simponi, sulfasalazine, Actemra- mostly ineffective. Some nausea with methotrexate at high doses. Orencia since 2019 with modest response but still requiring low- dose prednisone. Code(s): M05.9 - Rheumatoid arthritis with rheumatoid factor, unspecified Category: Medical (2) Osteoporosis: Comment: Initially on alendronate -2020 stopped due to decline in eGFR. Prolia started 2019 DEXA 09/22 at [facility] Spine Tscore -1.2; hip Tscore -1.6( both improved) Code(s): M81.0 - Age-related osteoporosis without current pathological fracture Category: Medical Qualifiers: Osteoporosis type: unspecified Presence of current pathological fracture: without current pathological fracture Qualified Code(s): M81.0 - Age- related osteoporosis without current pathological fracture (3) Other specified nutritional deficiencies: Code(s): E63.8 - Other specified nutritional deficiencies Category: Medical (4) Multiple fractures of cervical spine: Code(s): S12.9XXA - Fracture of neck, unspecified, initial encounter Category: Medical Qualifiers: Encounter type: initial encounter Fracture type: closed Qualified Code(s): S12.9XXA - Fracture of neck, unspecified, initial encounter (5) Primary osteoarthritis of hands, bilateral: Code(s): M19.041 - Primary osteoarthritis, right hand; M19.042 - Primary osteoarthritis, left hand Category: Medical (6) Lumbar spondylosis: Code(s): M47.816 - Spondylosis without myelopathy or radiculopathy, lumbar region Category: Medical (7) Long-term use of immunosuppressant medication: Code(s): Z79.899 - Other senior living (current) drug therapy Category: Medical (8) terminal supervisor systemic steroid user: Code(s): Z79.52 - [facility] (current) use of systemic steroids Category: Medical Plan #Rheumatoid arthritis/Stock Buyer Use:- Ulnar deformity and joint subluxation shows the severity of her disease. The RA is reasonably controlled with her complex regimen of Orencia 125 mg subq q.week, methotrexate 12.5 mg q.week and prednisone, with a normal CRP and mild elevation in ESR (23) which is reasonable given her comorbidities. She has had no side effects when methotrexate was increased to 5 pills at last visit. Order for monitoring labs were already aditi keerthi #Long-term use of immunosuppressive: The LFTs are WNL and CBC is reasonable for us to continue with the methotrexate, Orencia, and prednisone. Kidney function remains adequate for MTX. The patient knows to hold her immunosuppressive in the event of fever, infection, surgery and nonhealing wound. #Osteoarthritis/Lumbar Spondylosis: With regards to the OA, given the severity of of the DIP nodes and deformity and tenderness in the DIP joints, the swelling to the CMC joint that happens intermittently, I suspect there may be an element of inflammatory OA. I discussed with patient that this pain will not likely respond to the immunomodulator medications. Encouraged her to do more of the things that provide relief such as warmth, cool, waxing, exercises and topical analgesics and Tylenol as tolerated. #Osteoporosis/Multiple spine Frx/Jail Prednisone: Next Prolia injection March 2024. Patient is on chronic Prednisone and found to have multiple spine Frx. She denies known trauma or injury that may have contributed to her spinal fracture. We discussed the long-term use of prednisone which may be contributory. We will reduce her prednisone to 5 mg per day. I have also given the referral for Neuro Surgery. Tylenol is not sufficient to address the pain in her spine so I will prescribe tramadol 50 mg b.i.d. until she sees neuro surgery. We also will get updated DEXA to assess her T-score and severity of osteoporosis. I think the benefit would benefit from protein supplementation to improve her nutrition so I have recommended boost and I have given her prescription for that. We will see her back in about 4 months with lab work 1 week before next visit. I spent 40 minutes reviewing chart, tinc patient and discussing osteoporosis and fractures and prednisone use, and documenting Orders: Orders XR DEXA axial skeleton 01/07/24 M81.0 - Age-related osteoporosis without current pathological fracture, S12.9XXA - Fracture of neck, unspecified, initial encounter Referrals Neurosurgery Referral M05.9 - Rheumatoid arthritis with rheumatoid factor, unspecified, M81.0 - Age-related osteoporosis without current pathological fracture, S12.9XXA - Fracture of neck, unspecified, initial encounter Medications: New food supplemt, lactose-reduced (Boost High Protein) 1 ea PO DAILY 1,422 mL 4RF E63.8 - Other specified nutritional deficiencies tramadol 50 mg PO DAILY 30 tabs 1RF S12.9XXA - Fracture of neck, unspecified, initial encounter Coding Level of Care Code Est Pt Level 4 (42387) Complex EM visit Add On G2211 Diagnoses Seropositive rheumatoid arthritis M05.9 Osteoporosis without current pathological fracture, unspecified osteoporosis type M81.0 Osteoporosis type: unspecified Presence of current pathological fracture: without current pathological fracture Other specified nutritional deficiencies E63.8 Closed fracture of multiple cervical vertebrae, initial encounter S12.9XXA Encounter type: initial encounter Fracture type: closed Primary osteoarthritis of hands, bilateral M19.041; M19.042 Lumbar spondylosis M47.816 Long-term use of immunosuppressant medication Z79.899 [facility] systemic steroid user Z79.52
[2024-01-07 09:24] VITALS: BP 102/64; PULSE 86; O2SAT 97
== END 2024-01-07 10:17 | disposition home or self-care (01) ==
PROVIDERS: PCP Family Medicine; Visit Provider Nurse Practitioner Family
DX: M05.79 Rheumatoid arthritis with rheumatoid factor of multiple sites without organ or systems involvement (principal); M81.0 Age-related osteoporosis without current pathological fracture; E63.8 Other specified nutritional deficiencies; S12.9XXA Fracture of neck, unspecified, initial encounter; M19.041 Primary osteoarthritis, right hand; M19.042 Primary osteoarthritis, left hand; M47.816 Spondylosis without myelopathy or radiculopathy, lumbar region; Z79.899 Other long term (current) drug therapy; Z79.52 Long term (current) use of systemic steroids
CPT/HCPCS: 99215; G2211

== ENCOUNTER 2024-01-07 10:33 | Outpatient (REF) | payer MEDICARE, SELFPAY ==
[2024-01-07 10:59] LABS: MANUAL DIFF FLAG NO
[2024-01-07 11:17] LABS: Basophils Percent Auto 0.4 % (0-2); Eosinophils Percent Auto 0.3 % (0-4); Hematocrit 34.2 % (37.0-47.0); Hemoglobin 11.2 g/dl (12.0-16.0); Imm Gran Abs Auto 0.04 X10*3/uL (0.00-0.03); Imm Gran Pct Auto 0.4 % (0.0-0.4); Lymphocytes Absolute Auto 0.8 X10*3/uL (1.2-4.9); Lymphocytes Percent Auto 7.8 % (20-40); Mean Corpuscular HGB Conc 32.7 g/dl (31.0-35.0); Mean Corpuscular Hemoglobin 29.4 pg (27.0-33.0); Mean Corpuscular Volume 89.8 fL (80.0-98.0); Mean Platelet Volume 9.7 fL (9.4-12.3); Monocytes Absolute Auto 0.4 X10*3/uL (0.1-1.2); Monocytes Percent Auto 3.4 % (2-11); Neutrophils Absolute Auto 9.2 x10*3/uL (2.0-8.3); Neutrophils Percent Auto 87.7 % (45-73); Platelet Count 322 X10*3/uL (160-400); Red Blood Count 3.81 X10*6/uL (4.20-5.50); Red Cell Distribution Width 14.5 % (11.0-16.0); White Blood Count 10.4 X10*3/uL (4.8-10.8)
[2024-01-07 11:34] LABS: Alanine Aminotransferase 12 U/L (0-31); Alkaline Phosphatase 63 U/L (39-117); Anion Gap 14 (12-20); Aspartate Amino Transferase 15 U/L (5-31); Bilirubin Total 0.3 mg/dL (0.0-1.0); Blood Urea Nitrogen 9 mg/dL (9-16); Calcium 9.2 mg/dL (8.4-10.2); Carbon Dioxide 23 mmol/L (22-29); Chloride 103 mmol/L (96-108); Estimated Glomerular Filt Rate 59; Glucose Random 102 mg/dL (60-115); Iron 70 mcg/dL (30-160); Percent Iron Saturation 28 % (15-50); Potassium 4.8 mmol/L (3.3-5.1); Sodium 135 mmol/L (135-145); Total Iron Binding Capacity 248 mcg/dL (228-428); Total Protein 6.4 g/dL (6.5-8.0); Unsaturated Iron Binding 178 ug/dL
[2024-01-07 11:53] LABS: Free T4 (Free Thyroxine) 0.86 ng/dL (0.71-1.85); Thyroid Stimulating Hormone 0.85 uIU/mL (0.32-4.0)
== END 2024-01-07 10:34 | disposition home or self-care (01) ==
LOC: HO.10HDL 10:33
PROVIDERS: Visit Provider Family Medicine
DX: I10 Essential (primary) hypertension (principal); R53.1 Weakness; D64.9 Anemia, unspecified; M05.9 Rheumatoid arthritis with rheumatoid factor, unspecified; M81.0 Age-related osteoporosis without current pathological fracture; E63.8 Other specified nutritional deficiencies; M19.041 Primary osteoarthritis, right hand; M19.042 Primary osteoarthritis, left hand; M47.816 Spondylosis without myelopathy or radiculopathy, lumbar region; S12.9XXA Fracture of neck, unspecified, initial encounter; Z79.899 Other long term (current) drug therapy; Z79.52 Long term (current) use of systemic steroids; X58.XXXA Exposure to other specified factors, initial encounter; Y93.9 Activity, unspecified; Y92.9 Unspecified place or not applicable; Y99.9 Unspecified external cause status
CPT/HCPCS: 36415; 80053; 83540; 84439; 84443; 85025; 99212

== ENCOUNTER 2024-02-04 10:15 | Outpatient (REF) | payer MEDICARE, SELFPAY ==
--- NOTE | ~2024-02-04 | MM_ITS ---
EXAMINATION: BONE DENSITOMETRY CLINICAL INDICATION: Fracture of neck, unspecified, initial encounter. COMPARISON: Baseline BD dated 05/27/2019. TECHNIQUE: Using a ELIKE DXA System (software version: 13.1) manufactured by [employer], dual-energy x-ray absorptiometry was performed of the lumbar spine and left hip. The images are of good technical quality. Summary results are attached. FINDINGS: LEFT FEMUR, NECK: Current: BMD 0.869 g/cm2, Z-score 0.0, T-score -1.2, osteopenia. Baseline: BMD 0.811 g/cm2. LEFT FEMUR, TOTAL: Current: BMD 0.893 g/cm2, Z-score 0.1, T-score -0.9, normal, 10.2% increase from baseline (<5% change is not significant). Baseline: BMD 0.810 g/cm2. AP SPINE L1-L4: Current: BMD 1.258 g/cm2, Z-score 1.8, T-score 0.6, normal, 18.1% increase from baseline (<5% change is not significant). Baseline: BMD 1.065 g/cm2. IDENTIFIED RISK FACTORS: Early menopause, secondary osteoporosis, bilateral oophorectomy, parental hip fracture, glucocorticoids, height loss, history of fracture (adult), low calcium intake, osteoporosis, rheumatoid arthritis. HISTORY OF FRACTURE: Other. Femur/hip. MEDICATIONS: Calcium supplements or multivitamin, vitamin D, Prolia. MM/XR DEXA axial skeleton IMPRESSION: 1. DIAGNOSIS: Osteopenia based on the lowest T-score value of -1.2 in the femoral neck applying World Health Organization criteria. 2. 10-YEAR FRACTURE RISK PREDICTION, FRAX: Not performed in this patient on estrogen or bone building treatments. 3. Treatment Recommendations: NOF guidelines recommend consideration for treatment in postmenopausal women and men age 50 and older presenting with the following: -A hip or vertebral (clinical or morphometric) fracture. -T-score less than or equal to -2.5 at the femoral neck or spine after appropriate evaluation to exclude secondary causes. -Low bone mass at the hip or spine and a 10-year fracture probability by FRAX of greater than or equal to 3% for hip fracture or greater than or equal to 20% for major osteoporotic fracture based on the [place] adapted WHO algorithm. 4. Other Recommendations: All treatment decisions require clinical judgment and consideration of individual patient factors, including patient preferences, comorbidities, previous drug use, risk factors not captured in the FRAX model (e.g. frailty, falls, vitamin D deficiency, increased bone turnover, interval significant decline in bone density) and possible under or overestimation of fracture risk by FRAX. Additional medical evaluation for secondary cause of low bone mineral density may be appropriate. FUTURE SCAN RECOMMENDATION: People with diagnosed cases of osteoporosis or at high risk for fracture should have regular bone mineral density tests. For patients eligible for Medicare, routine testing is allowed once every 2 years. The testing frequency can be increased to one year for patients who have rapidly progressing disease, those who are receiving or discontinuing medical therapy to restore bone mass, or have additional risk factors.
== END 2024-02-04 10:16 | disposition home or self-care (01) ==
LOC: HO.MAMMO 10:15
PROVIDERS: PCP Family Medicine; Visit Provider Nurse Practitioner Family
DX: Z13.820 Encounter for screening for osteoporosis (principal); M81.0 Age-related osteoporosis without current pathological fracture; S12.9XXD Fracture of neck, unspecified, subsequent encounter; Z78.0 Asymptomatic menopausal state
CPT/HCPCS: 77080

== ENCOUNTER 2024-02-13 15:50 | Outpatient (AMB) | payer MEDICARE, SELFPAY ==
--- NOTE | 2024-02-13 15:52 | MHC.OFFVIS ---
Vital Signs 02/13/24 16:02 Height 5 ft 2 in BP 132/64 Blood Pressure Location Rt brachial Position Sitting Pulse 70 Pulse Source Pulse Oximeter Pulse Oximetry (%) 97 Oxygen Delivery Method Room Air Intake Visit Reasons: RA- req apt in pain Intake Note: Pt last seen 01/06/23, presents today with complaints of neck pain. States pain is so bad its hard for her to breathe. She is back on prednisone 7mg. Appt with neurosurgeon March 01 [facility]. [employer] Required: No Accompanied by: Self / Same As Patient Allergies morphine Allergy (Unknown, Verified 02/13/24 16:03) hallucinations Clindamycin HCl Allergy (Severe, Uncoded 02/13/24 16:03) diarrhea mustard Allergy (Unknown, Uncoded 02/13/24 16:03) Unknown sugar substitute Allergy (Unknown, Uncoded 02/13/24 16:03) Unknown HPI Comments Details: Patient here for urgent visit for upper back and neck pain. She is off Prednisone. She has not yet seen the Neurologist for the compression fractures in the spine. [facility] Medical History (Updated 02/13/24 @ 16:28 [facility] Cervical pain (neck) Other specified nutritional deficiencies Multiple fractures of cervical spine Iron deficiency anemia Primary osteoarthritis of hands, bilateral Lumbar spondylosis Long-term use of immunosuppressant medication Osteoporosis Seropositive rheumatoid arthritis Surgical History History of total left knee replacement (TKR) Social History Alcohol intake: never Patient Tobacco Use Status: Former Tobacco user Tobacco use type: Cigarette Cigarettes Per Day: 2 Years Smoked: 7 e-Cigarette/Vaping Use: Never Used Physical Exam Vital Signs: Last Vital Signs Pulse 70 02/13/24 16:02 BP 132/64 02/13/24 16:02 Pulse Ox 97 02/13/24 16:02 Oxygen Delivery Method Room Air 02/13/24 16:02 Assessment & Plan Assessment & Plan (1) Multiple fractures of cervical spine: Code(s): S12.9XXA - Fracture of neck, unspecified, initial encounter Category: Medical Qualifiers: Encounter type: initial encounter Fracture type: closed Qualified Code(s): S12.9XXA - Fracture of neck, unspecified, initial encounter (2) Cervical pain (neck): Code(s): M54.2 - Cervicalgia Category: Medical Plan Tramadol is the best thing to take at this time for her neck and upper back pain. She says she is not aware that she had refills. She says the Tramadol does wotk well in combination with the Tylenol. She can continue off the Prednisone at this time Coding Level of Care Code Est Pt Level 1 (57538) Diagnoses Closed fracture of multiple cervical vertebrae, initial encounter S12.9XXA Encounter type: initial encounter Fracture type: closed Cervical pain (neck) M54.2
--- OUTSIDE RECORDS SUMMARY | 2024-02-13 15:52 | XMS_ITS | Continuity of Care Document ---
Author Organization [facility] Johan borjas's [facility] Address [address], [address] [place] [address]- Care Team Providers Care Miller Rod Mill Name Role Phone Not on Staff, PCP Primary Care Physician Unavail able Encounter [facility] Date(s): 10/16/20 - 11/15/20 [email or web address] [address], [address] [place], [place] [address] Attending Physician: Elizabeth Durbin Admitting Physician: AdmElizabeth reynoso Referring Physician: AdmtrElizabeth Allergies, Adverse Reactions, Alerts Substance Reaction Severity Status clindamycin gi infection Active Cipro Active morphine Visual hallucination s nightmares Active Lasix vomiting Active Abilify Vomiting Active Other Food Allergy 1 mustard- asthma att ack causes asthma sugar substitute Active 1Pt states she is allergic to all artificial sweetners Immunizations Given and Recorded Vaccine Date Status Refusal Reason influenza virus vaccine, inactivated 05/07/17 Marcellus rded tetanus/diphtheria/pertussis, acel(Tdap) 03/21/08 Given Medications Abilify 10 mg oral tablet 10 mg, 1, tablet, By Mouth, Daily, provider, # 30 tablet, Refills 0, Maintenance, 01/02/17 13:55:56 Start Date: 01/02/17 Status: Ordered Benefiber oral powder for reconstitution 10 mL, By Mouth, 2 times a day, PRN as needed for constipation, # 245 Gm, 1 Refills, Maintenance, 04/24/17 14:36:53, REC Powder, 10 mL By Mouth 2 times a day,PRN:as needed for constipation Start Date: 04/24/17 Status: Ordered Caltrate 600 mg oral tablet 1 tablet = 600 mg, By Mouth, 2 times a day, # 180 tablet, 1 Refills, Maintenance, 01/02/17 13:52:14, Tablet Start Date: 01/02/17 Status: Ordered Centrum Therapeutic Multiple Vitamins with Minerals oral tablet 1, tablet, By Mouth, Daily, 0, 0, 11/01/05 15:10:12, [id number], Constant Indicator, 11/01/05 8:00:00 Start Date: 11/01/05 Status: Ordered diazepam 5 mg oral tablet 5 mg, 1, tablet, By Mouth, Daily at bedtime, Provider, Refills 0, Maintenance, 01/02/17 13:55:22 Start Date: 01/02/17 Status: Ordered Ferrous Sulfate EC Refills 0, Maintenance, 10/16/20 12:08:00 EST, Partial fill upon patient request if the prescription is for a schedule II opioid drug. Start Date: 10/16/20 Status: Ordered Flonase 50 mcg/inh nasal spray 1 sprays, Nares, Both, Daily in AM, # 1 each, 1 Refills, Maintenance, 08/29/17 14:19:55, [place], 1 sprays Nares, Both Daily in AM Start Date: 08/29/17 Status: Ordered Fosamax 70 mg oral tablet 1 tablet = 70 mg, By Mouth, 0 Refills, Maintenance, 10/16/20 12:09:00 EST, Partial fill upon patient request if the prescription is for a schedule II opioid drug. Start Date: 10/16/20 Status: Ordered lisinopril 5 mg oral tablet 5 mg, 1, tablet, By Mouth, Daily, # 90 tablet, Refills 1, Tot. Refills 1, Maintenance, 01/02/17 13:48:47, Route to Pharmacy Electronically, [id number], [facility] Start Date: 01/02/17 Status: Ordered mirabegron 50 mg oral tablet, extended release 1 tablet = 50 mg, By Mouth, Daily, 0 Refills, Maintenance, 10/16/20 12:09:00 EST, Partial fill uponpatient request if the prescription is for a schedule II opioid drug. Start Date: 10/16/20 Status: Ordered Orencia ClickJect 125 mg/mL subcutaneous solution = 125 mg, Subcutaneous Infusion, 0 Refills, Maintenance, 10/16/20 12:08:00 EST, Partial fill upon patient request if the prescription is for a schedule II opioid drug. Start Date: 10/16/20 Status: Ordered pantoprazole 40 mg oral delayed release tablet 1 tablet = 40 mg, By Mouth, Daily, # 90 tablet, 1 Refills, Maintenance, 10/13/17 14:06:10, EC Tablet Start Date: 10/13/17 Status: Ordered pravastatin 40 mg oral tablet 1 tablet = 40 mg, By Mouth, Daily, # 90 tablet, 1 Refills, Maintenance, 01/02/17 13:49:44, Tablet Start Date: 01/02/17 Status: Ordered prazosin 5 mg oral capsule 5 mg, 1, capsule, By Mouth, 3 times a day, Refills 0, Maintenance, 10/16/20 12:08:00 EST, Partial fill upon patient request if the prescription is for a schedule II opioid drug. Start Date: 10/16/20 Status: Ordered PredniSONE = 5 mg, By Mouth, Daily, per Dr. Munoz, 0 Refills, Maintenance, 01/02/17 14:29:17 Start Date: 01/02/17 Status: Ordered ProAir HFA 90 mcg/inh inhalation aerosol with adapter 2, puffs, Inhalation, Every 6 hours, PRN, # 8.5 Gm, Refills 1, Tot. Refills 1, Maintenance, 01/02/17 13:52:43, Aerosol, Route to Pharmacy Electronically, [id number], [facility] Start Date: 01/02/17 Status: Ordered Venlafaxine By Mouth, 0 Refills, Maintenance, 10/16/20 12:08:00 EST, Partial fill upon patient request if the prescription is for a schedule II opioid drug. Start Date: 10/16/20 Status: Ordered venlafaxine 150 mg oral tablet, extended release 1 tablet = 150 mg, By Mouth, Daily, per provider, # 30 tablet, 0 Refills, Maintenance, 01/02/17 13:54:55, ER Tablet Start Date: 01/02/17 Status: Ordered Vitamin D3 2000 intl units oral tablet 1 tablet = 2,000 International_Units, By Mouth, Daily, # 90 tablet, 1 Refills, Maintenance, 01/02/17 13:50:35 Start Date: 01/02/17 Status: Ordered Problem List Condition Effective Dates Status Health Status Inform ant Asthma due to seasonal allergies(Confirmed) Active Arthritis(Confirmed) Active Depression(Confirmed) Active GERD (gastroesophageal reflu x disease)(Confirmed) Active Hypercholesterolemia(Confirmed) Active Hyperlipidemia(Confirmed) Active Hypertension(Confirmed) Active Mitral valve prolapse(Confirmed) Active Osteopenia(Confirmed) 1 Active Rheumatoid arthritis(Confirmed) 2 Active 1Bone density 03/2016, Dr. Munoz 2followed by Dr. Munoz
--- OUTSIDE RECORDS SUMMARY | 2024-02-13 15:52 | XMS_ITS | Continuity of Care Document ---
Author Organization [facility] Address [address] [place] [address] [address], [address] [place] [address]- Care Team Providers Care Stunner Animal Name Role Phone Not on Staff, PCP Primary Care Physician Unavail able Encounter [facility] Date(s): 01/08/24 - 02/07/24 [facility] [address] [place] [address] Drive [address] [place], [place] [address] Allergies, Adverse Reactions, Alerts Substance Reaction Severity Status clindamycin gi infection Active morphine Visual hallucination s nightmares Active Cipro Active Lasix vomiting Active Abilify Vomiting Active [...] By Mouth, Daily, 0, 0, 11/01/05 15:10:12, [id number]+006, Constant Indicator, 11/01/05 8:00:00 Start Date: 11/01/05 [...] 1 each, 1 Refills, Maintenance, 08/29/17 14:19:55, [place], 1 sprays Nares, Both Daily in AM [...] Maintenance, 01/02/17 13:48:47, Route to Pharmacy Electronically, [id number], [facility] Start Date: 01/02/17 Status: Ordered mirabegron 50 [...] 01/02/17 13:52:43, Aerosol, Route to Pharmacy Electronically, [id number], [facility] Start Date: 01/02/17 Status: Ordered Venlafaxine By [...] Date: 01/02/17 Status: Ordered Problem List Condition Confirmation Course Effective Dates Status Health Status Informant Asthma due to seasonal allergies Confirmed Active Arthritis Confirmed Active Depression Confirmed Active GERD (gastroesophageal reflux disease) Confirmed Active Hypercholesterolemia Confirmed Active Hyperlipidemia Confirmed Active Hypertension Confirmed Active Mitral valve prolapse Confirmed Active Osteopenia 1 Confirmed Active Rheumatoid arthritis 2 Confirmed Active 1Bone density 03/2016, Dr. Munoz 2followed by Dr. Munoz Patient Care team information Care Team Personnel Name: Luana Prabhakar RN Position: [facility] RN Member Role: Primary Care Nurse Name: Loretta Kilpatrick RN Position: [facility] SN RN Member Role: Primary Care Nurse Name: Bre Larios RN Position: [facility] SN RN Member Role: Primary Care Nurse Name: Not on Staff, PCP Position: [facility] Physician (General Medicine) Member Role: PCP Name: Alyce Ross RN Position: [facility] RN Member Role: Primary Care Nurse Name: Parag Schroeder MD Position: [facility] Outreach Member Role: Lifetime Consulting Physician Address: Address: [address] [address]- Name: Temitope Nogueira Position: [facility] [place] Member Role: Primary Care Nurse Name: Mariel Vaughn RN Position: [facility] RN Member Role: Primary Care Nurse Care Team Related Persons Name: CHELI MCCLELLAN Address: [address] [place] [address] Name: RUTHY STOVALL Address: [address] [place] [address]
[2024-02-13 16:02] VITALS: BP 132/64; PULSE 70; O2SAT 97
== END 2024-02-13 16:16 | disposition home or self-care (01) ==
LOC: HO.RHE 15:50
PROVIDERS: PCP Family Medicine; Visit Provider Nurse Practitioner Family
DX: S12.9XXA Fracture of neck, unspecified, initial encounter (principal); M54.2 Cervicalgia

== ENCOUNTER → 2024-02-13 15:50 | Outpatient (BNVA) | payer MEDICARE, SELFPAY | PROVIDERS: PCP Family Medicine; Visit Provider Nurse Practitioner Family | DX: S12.9XXA Fracture of neck, unspecified, initial encounter (principal); M54.2 Cervicalgia | CPT/HCPCS: 99211 ==

== ENCOUNTER 2024-04-14 09:23 | Outpatient (REF) | payer MEDICARE, SELFPAY ==
[2024-04-14 11:26] LABS: Anion Gap 11 (12-20); Blood Urea Nitrogen 8 mg/dL (9-16); Calcium 8.9 mg/dL (8.4-10.2); Carbon Dioxide 26 mmol/L (22-29); Chloride 99 mmol/L (96-108); Estimated Glomerular Filt Rate > 60; Glucose Random 94 mg/dL (60-115); Potassium 4.2 mmol/L (3.3-5.1); Sodium 132 mmol/L (135-145)
[2024-04-18 15:58] LABS: Vitamin D 25-OH, D2 <4 ng/mL; Vitamin D 25-OH, D3 37 ng/mL; Vitamin D 25-OH, Total 37 ng/mL (30-100)
== END 2024-04-14 09:24 | disposition home or self-care (01) ==
LOC: HO.10HDL 09:23
PROVIDERS: Visit Provider Student in an Organized Health Care Education/Training Program
DX: M81.0 Age-related osteoporosis without current pathological fracture (principal); E55.9 Vitamin D deficiency, unspecified
CPT/HCPCS: 36415; 80048; 82306

== ENCOUNTER 2024-04-15 08:56 | Outpatient (AMB) | payer MEDICARE, SELFPAY ==
--- NOTE | 2024-04-15 09:13 | AM.OFFVISNUR ---
Intake Visit Reasons: Prolia injection Allergies morphine Allergy (Unknown, Verified 02/13/24 16:03) hallucinations Clindamycin HCl Allergy (Severe, Uncoded 02/13/24 16:03) diarrhea mustard Allergy (Unknown, Uncoded 02/13/24 16:03) Unknown sugar substitute Allergy (Unknown, Uncoded 02/13/24 16:03) Unknown Office Meds Prolia 60 mg/mL subcutaneous syringe Performing Provider: Lorenzo Ascencio MD Performing Location: [facility] [place] Rheumatology Administered by: Tracy Agosto RN on 04/15/24 09:13 Dose Route Admin Location Dispensed Lot Number Expiration Date NDC Slate Cutter 60 mg subcut left upper arm 1 mL [id number] 07/31/26 48717-783-82 [employer] Comments: Consent form signed. Pt tolerated injection well. Pt denies any problems with previous injections Assessment & Plan Assessment & Plan Orders: Orders AMB Denosumab Injection Practice Supplied Today M81.0 - Age-related osteoporosis without current pathological fracture Medications: New Prolia (denosumab) 60 mg subcut ONCE 1 mL 0RF NS M81.0 - Age-related osteoporosis without current pathological fracture
== END 2024-04-15 09:08 | disposition home or self-care (01) ==
PROVIDERS: PCP Family Medicine
DX: M81.0 Age-related osteoporosis without current pathological fracture (principal)

== ENCOUNTER → 2024-04-15 08:56 | Outpatient (BNVA) | payer MEDICARE, SELFPAY | PROVIDERS: PCP Family Medicine | DX: M81.0 Age-related osteoporosis without current pathological fracture (principal) | CPT/HCPCS: 96372; J0897 ==

== ENCOUNTER 2024-06-07 08:20 | Outpatient (AMB) | payer MEDICARE, SELFPAY ==
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
[2024-06-07 08:26] VITALS: BP 115/64; PULSE 70; O2SAT 97; BMI 31.4
== END 2024-06-07 08:53 | disposition home or self-care (01) ==
PROVIDERS: PCP Family Medicine; Visit Provider Student in an Organized Health Care Education/Training Program
DX: M05.79 Rheumatoid arthritis with rheumatoid factor of multiple sites without organ or systems involvement (principal); M15.9 Polyosteoarthritis, unspecified; Z79.899 Other long term (current) drug therapy; M81.0 Age-related osteoporosis without current pathological fracture
CPT/HCPCS: 20610; 99215

== ENCOUNTER → 2024-06-07 08:20 | Outpatient (BNVA) | payer MEDICARE, SELFPAY | PROVIDERS: PCP Family Medicine; Visit Provider Student in an Organized Health Care Education/Training Program | DX: M05.9 Rheumatoid arthritis with rheumatoid factor, unspecified (principal); M15.9 Polyosteoarthritis, unspecified; M81.0 Age-related osteoporosis without current pathological fracture; M25.512 Pain in left shoulder; Z79.631 Long term (current) use of antimetabolite agent; Z79.899 Other long term (current) drug therapy; Z79.620 Long term (current) use of immunosuppressive biologic | CPT/HCPCS: 20610; 99212 ==

== ENCOUNTER 2024-09-17 09:55 | Outpatient (REF) | payer MEDICARE, SELFPAY ==
[2024-09-17 10:58] LABS: MANUAL DIFF FLAG NO
[2024-09-17 11:31] LABS: Alanine Aminotransferase 11 U/L (0-31); Albumin Level 3.5 g/dL (3.5-5.0); Alkaline Phosphatase 75 U/L (39-117); Anion Gap 11 (12-20); Aspartate Amino Transferase 25 U/L (5-31); Bilirubin Total 0.3 mg/dL (0.0-1.0); Blood Urea Nitrogen 8 mg/dL (9-16); C Reactive Protein 0.64 mg/dL (< or = 0.50); Calcium 9.1 mg/dL (8.4-10.2); Carbon Dioxide 23 mmol/L (22-29); Chloride 101 mmol/L (96-108); Estimated Glomerular Filt Rate > 60; Glucose Random 86 mg/dL (60-115); Iron 22 mcg/dL (30-160); Magnesium 1.9 mg/dL (1.6-2.6); Percent Iron Saturation 9 % (15-50); Potassium 4.2 mmol/L (3.3-5.1); Sodium 131 mmol/L (135-145); Total Iron Binding Capacity 233 mcg/dL (228-428); Total Protein 6.5 g/dL (6.5-8.0); Unsaturated Iron Binding 211 ug/dL
[2024-09-17 11:32] LABS: Basophils Percent Auto 0.5 % (0-2); Eosinophils Absolute Auto 0.1 X10*3/uL (0.0-0.4); Eosinophils Percent Auto 1.2 % (0-4); Hematocrit 30.8 % (37.0-47.0); Hemoglobin 10.2 g/dl (12.0-16.0); Imm Gran Abs Auto 0.04 X10*3/uL (0.00-0.03); Imm Gran Pct Auto 0.5 % (0.0-0.4); Lymphocytes Absolute Auto 1.6 X10*3/uL (1.2-4.9); Lymphocytes Percent Auto 19.1 % (20-40); Mean Corpuscular HGB Conc 33.1 g/dl (31.0-35.0); Mean Corpuscular Hemoglobin 27.9 pg (27.0-33.0); Mean Corpuscular Volume 84.4 fL (80.0-98.0); Mean Platelet Volume 9.4 fL (9.4-12.3); Monocytes Absolute Auto 0.7 X10*3/uL (0.1-1.2); Monocytes Percent Auto 7.9 % (2-11); Neutrophils Absolute Auto 5.9 x10*3/uL (2.0-8.3); Neutrophils Percent Auto 70.8 % (45-73); Platelet Count 395 X10*3/uL (160-400); Red Blood Count 3.65 X10*6/uL (4.20-5.50); White Blood Count 8.4 X10*3/uL (4.8-10.8)
[2024-09-17 12:07] LABS: Erythrocyte Sedimentation Rate 44 MM/HR (0-20)
[2024-09-17 12:22] LABS: HBS Num1 1.41 mIU/mL (0-7.99); HBc Num1 0.07 S/CO (0.00-0.79); HBsAGNum1 0.35 S/CO (0.00-0.99); Hepatitis A Antibody IgM 0.13 Index (0-0.79); Hepatitis B Core Antibody Nonreactive (Nonreactive); Hepatitis B Surface Antigen Negative (Negative); ~HepC Num1 0.46 S/CO (0.00-0.79); ~Hepatitis A Antibody IgM Nonreactive (Nonreactive); ~Hepatitis B Surface Antibody NONREACTIVE (Nonreactive); ~Hepatitis C Antibody Nonreactive (Nonreactive)
[2024-09-20 13:24] LABS: Prot Elec - Albumin 3.1 g/dL (3.8-4.8); Prot Elec - Alpha1 0.4 g/dL (0.2-0.3); Prot Elec - Alpha2 0.8 g/dL (0.5-0.9); Prot Elec - Beta 1 0.4 g/dL (0.4-0.6); Prot Elec - Beta 2 0.4 g/dL (0.2-0.5); Prot Elec - Gamma 0.6 g/dL (0.8-1.7); Prot Elec - Total Protein 5.7 g/dL (6.1-8.1)
[2024-09-20 17:03] LABS: TS Negative Control Passed; TS Panel A 0; TS Panel B 0; TS Positive Control Passed; TSpotTB Negative (Negative)
[2024-09-23 14:33] LABS: VITAMIN D (1,25 OH) D3 20 pg/mL; Vit D (1,25-Dihydroxy) Total 20 pg/mL (18-72); Vitamin D (1,25 OH) D2 <8 pg/mL
[2024-09-23 16:03] LABS: Vitamin D 25-OH, D2 <4 ng/mL; Vitamin D 25-OH, D3 27 ng/mL; Vitamin D 25-OH, Total 27 ng/mL (30-100)
== END 2024-09-17 09:56 | disposition home or self-care (01) ==
LOC: HO.LAB 09:55
PROVIDERS: Student in an Organized Health Care Education/Training Program; Absent Provider Nurse Practitioner Family; PCP Family Medicine; Visit Provider Student in an Organized Health Care Education/Training Program
DX: I10 Essential (primary) hypertension (principal); E78.00 Pure hypercholesterolemia, unspecified; D50.9 Iron deficiency anemia, unspecified; S12.9XXA Fracture of neck, unspecified, initial encounter; M81.0 Age-related osteoporosis without current pathological fracture; E55.9 Vitamin D deficiency, unspecified; M05.9 Rheumatoid arthritis with rheumatoid factor, unspecified; Z79.899 Other long term (current) drug therapy; Z11.59 Encounter for screening for other viral diseases; Z11.7 Encounter for testing for latent tuberculosis infection
CPT/HCPCS: 36415; 80053; 82306; 82550; 82652; 83540; 83735; 83970; 84165; 84450; 84460; 85025; 85652; 86140; 86481; 86704; 86706; 86709; 86803; 87340

== ENCOUNTER 2024-10-15 09:26 | Outpatient (REF) | payer MEDICARE, SELFPAY ==
--- OUTSIDE RECORDS SUMMARY | 2024-10-15 09:51 | XMS_ITS | Clinical Summary ---
Author Organization [facility] it Address [address] [place] [address] Care Team Providers Care Boner Meat Name Role Phone Bo Shi MD Primary Care Provider [phone] Surgical History Surgery Date Site/Laterality Comments OTHER SURGICAL HISTORY PROCEDURE: NH TOTAL ABDOMINAL HYSTERECT W/WO RMVL TUBE OVARY FOOT SURGERY PROCEDURE: HISTORICAL FOOT SURGERY TOTAL KNEE ARTHROPLASTY PROCEDURE: HISTORICAL TOTAL KNEE REPLACE COLONOSCOPY 10/02/2010 PROCEDURE: HISTORICAL COLONOSCOPY; COMMENT: 7 mm tubular adenoma at 30 cm. COLONOSCOPY 07/12/2010 PROCEDURE: HISTORICAL COLONOSCOPY; COMMENT: incomplete to 30 cm, small polyp. COLONOSCOPY 10/12/2020 PROCEDURE: HISTORICAL COLONOSCOPY; COMMENT: Small polyps x2; diverticulosis; random biopsies obtained: Random biopsies normal, polyps = tubular adenomas. UPPER GASTROINTESTINAL ENDOSCOPY 10/12/2020 PROCEDURE: [place] UPPER GI ENDOSCOPY PERFORMED; COMMENT: Visually normal, duodenal biopsies obtained: Normal. Medical History Medical History Date Comments Allergic rhinitis 12/06/2014 DX:Allergic rh initis Asthma 12/25/2010 DX:Asthma Bipolar disorder ([facility]) 05/20/2017 DX:Bi polar disorder ([facility]) Cervical disc disorder with radiculopathy 01/27/2015 DX:Cervical disc disorder wi th radiculopathy Chronic anxiety 10/14/2017 DX:Chronic anxie ty Constipation 12/22/2015 DX:Constipation Depression 06/13/2010 DX:Depression Diverticulosis 12/13/2014 DX:Diverticulosi s GERD (gastroesophageal reflu x disease) 02/06/2018 DX:GERD (gastroesophageal re flux disease) Herniated lumbar intervertebral disc 06/13/2010 DX:Herniated lumbar intervertebral disc History of knee replacement 07/01/2018 DX:H istory of knee replacement History of substance abuse ([facility]) 05/15/2012 DX:History of substance abuse ([facility]); COMMENT: opioids HTN (hypertension) 06/13/2010 DX:HTN (hyper tension) Hyperlipidemia 02/06/2018 DX:Hyperlipidemi a Lumbar spondylosis 11/20/2013 DX:Lumbar spo ndylosis Mitral prolapse 06/13/2010 DX:Mitral prolap se Mitral regurgitation 08/01/2009 DX:Mitral r egurgitation Mood disorder ([facility]) 04/16/2011 DX:Mood disorder ([facility]) Multilevel degenerative disc disease 07/29/2016 DX:Multilevel degenerative disc disease Osteoporosis 06/13/2010 DX:Osteoporosis Pain syndrome, chronic 01/17/2016 DX:Pain s yndrome, chronic Peripheral neuropathy 05/11/2014 DX:Periphe ral neuropathy Prediabetes 02/06/2018 DX:Prediabetes RA (rheumatoid arthritis) ([facility]) 06/13/2010 DX:RA (rheumatoid arthritis) ([facility]) Scoliosis 02/13/2015 DX:Scoliosis Tubular adenoma of colon 01/08/2017 DX:Tubu lar adenoma of colon; COMMENT: Small sigmoid colon polyp at CN 07/12/2010. CN 10/02/2010: 7 mm tubular adenoma at 30 cm. Next colonoscopy indicated 2015. Urinary incontinence 12/25/2010 DX:Urinary incontinence Vitamin D deficiency 02/04/2018 DX:Vitamin D deficiency CKD (chronic kidney disease) stage 3, GFR 30-59 ml/min ([facility]) 07/14/2018 DX:CKD (chronic kidney dise ase) stage 3, GFR 30-59 ml/min ([facility]) Family History Medical History Relation Name Comments Colon cancer Brother 1 trena Colon cancer Brother 2 juju Colon polyps Brother 2 juju dx age > 60 Colon cancer Mother dx age > 70 Relation Name Status Comments Brother 1 trena (Age 65) Brother 2 juju Brother 3 Alive Brother 4 Alive Brother 5 Alive Brother 6 Alive Father Mother Sister 1 Alive Sister 2 Alive Social History Tobacco Use Types Packs/Day Years Used Date Smoking Tobacco: Former Smokeless Tobacco: Former Alcohol Use Standard Drinks/Week Comments No 0 (1 standard drink = 0.6 oz pur e alcohol) Comments Unknown Sex and Gender Information Value Date Recorded Sex Assigned at Not on file Legal Sex Female 2:39 PM EST Gender Identity Not on file Sexual Orientation Not on file Obstetrics History Plan of Treatment Health Maintenance Due Date Last Done Comments COVID-19 Vaccine (#1) 1962 Zoster Vaccines (1 of 2) 2007 RSV Immunization Patients 60+ Years Old (1 - Risk 60-74 years 1-dose series) 2017 Pneumococcal Vaccine: 50+ Years (3 of 3 - PCV20 or PCV21) 05/20/2021 05/20/2016, 04/25/2012, 06/13/2010 Cholesterol Screening (Lipid Panel) 08/10/2022 Colorectal Cancer Screening: Colonoscopy 08/10/2022 Depression Screening 08/10/2022 Falls Risk Assessment 08/10/2022 Hepatitis C Screening 08/10/2022 Social Influencers of Health Screening 08/10/2022 Hypertension/CHF/CAD Annual BMP Blood Test 10/03/2023 Influenza Vaccine (#1) 2024 04/25/2012, 2009 Breast Cancer Screening 04/09/2025 04/09/20 23, 04/04/2022, 04/02/2021, Additional history exists DTaP,Tdap,and Td Vaccines (3 - Td or Tdap) 09/15/2025 09/15/2015, 06/13/2010 Osteoporosis Screening (Bone Density Screening) 09/13/2031 09/13/2021, 10/18/2020 HIB Vaccines Aged Out No longer eligi ble based on patient's age to complete this topic HPV Vaccines Aged Out No longer eligi ble based on patient's age to complete this topic Hepatitis A Vaccines Aged Out No long er eligible based on patient's age to complete this topic Hepatitis B Vaccines Aged Out No long er eligible based on patient's age to complete this topic IPV Vaccines Aged Out No longer eligi ble based on patient's age to complete this topic MMR Vaccines Aged Out No longer eligi ble based on patient's age to complete this topic Meningococcal ACWY Vaccine Aged Out N o longer eligible based on patient's age to complete this topic Meningococcal B Vacine Aged Out No lo nger eligible based on patient's age to complete this topic RSV Immunization Patients Under 20 months Aged Out No longer eligible based on patient's age to complete this topic Varicella Vaccines Aged Out No longer eligible based on patient's age to complete this topic Procedures Procedure Name Priority Date/Time Associated Diagnosis Comments REJI SCREENING DIGITAL Routine 04/09/2023 10:23 AM EDT Encounter for screening mammogram for malignant neoplasm of breast [facility] DEXA AXIAL SKELETON Routine 09/13/2021 12:06 PM EST Encounter for screening for osteoporosis from Last 3 Months or Most Recently Relevant to Health Maintenance Results * [facility] SCREENING DIGITAL (04/09/2023 10:23 AM EDT) Anatomical Region Laterality Modality Mammography 04/09/2023 9:04 AM EDT Narrative 04/09/2023 10:23 AM EDT [facility] Diagnostic Imaging Department [address] [place] [address] Patient: ??KRISTAL POSADA ?/Age/Sex: 1955 - F Unit#: ??[id number] ? Location/Status: ??SPDIMAM/REG CLI ? Mnemonic/Ordering Site: ??DIGSC/SPMAM Ordering Physician: ??BO SHI MD [facility] Screening Digital - 04/09/[address]27 Report Status:Signed EXAM: [facility] Screening Digital EXAM DATE AND TIME: 04/09/2023 9:28 AM HISTORY: ??Annual screening COMPARISON: ??04/04/2022, 04/02/2021, 03/30/2020, 03/17/2019 TECHNIQUE: Bilateral digital breast tomosynthesis was performed in the CC and MLO projections. Computer aided detection with Genophen 3D 3.1 was employed. TISSUE DENSITY: b. There are scattered areas of fibroglandular density. FINDINGS: No suspicious masses, grouped microcalcifications, or areas of architectural distortion are seen. The skin and vascularity are unremarkable. IMPRESSION: Stable mammographic appearance of the breasts. ??No evidence of malignancy is seen. A negative mammogram in the presence of a clinically suspicious palpable abnormality does not preclude the possibility of malignancy or alter the indications for biopsy. BI-RADS: ??Category 1: Negative RECOMMENDATION(S): 1: Routine screening mammogram BILATERAL in 1 year. 3341F, 7031F Dictating Physician: ??NEYMAR LUCIA MD Electronically Signed by: ??NEYMAR LUCIA MD Dic Date/Time: ??04/09/23 1019 Sign date/Time: ??04/09/23 1023 Procedure Note Neymar Lucia MD - 10/07/2023 [facility] Diagnostic Imaging Department [address] [place] [address] Patient: KRISTAL POSADA GALEN Solis.O.B./Age/Sex: 1955 - 67 -F Unit#: [id number] Location/Status: [facility] CLI Mnemonic/Ordering Site: [facility] Ordering Physician: BO SHI MD [facility] Screening Digital - 04/09/23927 Report Status:Signed EXAM: [facility] Screening Digital EXAM DATE AND TIME: 04/09/2023 9:28 AM HISTORY: Annual screening COMPARISON: 04/04/2022, 04/02/2021, 03/30/2020, 03/17/2019 TECHNIQUE: Bilateral digital breast tomosynthesis was performed in the CCand MLO projections. Computer aided detection with Genophen 3D 3.1was employed. TISSUE DENSITY: b. There are scattered areas of fibroglandular density. FINDINGS: No suspicious masses, grouped microcalcifications, or areas ofarchitectural distortion are seen. The skin and vascularity are unremarkable. IMPRESSION: Stable mammographic appearance of the breasts. No evidence of malignancyis seen. A negative mammogram in the presence of a clinically suspicious palpable abnormality does not preclude the possibility of malignancy or alter the indications for biopsy. BI-RADS: Category 1: Negative RECOMMENDATION(S): 1: Routine screening mammogram BILATERAL in 1 year. 3341F, 7025F Dictating Physician: NEYMAR LUCIA MD Electronically Signed by: NEYMAR LUCIA MD Dic Date/Time: 04/09/23 1019 Sign date/Time: 04/09/23 1023 us Bo Shi MD IMG BI PROCEDURES Final Result * [facility] DEXA AXIAL SKELETON (09/13/2021 12:06 PM EST) Anatomical Region Laterality Modality Mammography 09/13/2021 9:57 AM EST Narrative 09/13/2021 12:06 PM EST [facility] Diagnostic Imaging Department [address] [place] [id number] Patient: ??KRISTAL POSADA ?/Age/Sex: 1955 - 66 - F Unit#: ??[id number] ? Location/Status: ??SPDIMAM/REG CLI ? Mnemonic/Ordering Site: ??MAMDEXAAX/SPMAM Ordering Physician: ??LESLIEEVELIA MIRZA NP [facility] Dexa Axial Skeleton - 09/13/21 - 3 HISTORY: ??The patient is a 66-year-old postmenopausal female on chronic glucocorticoid therapy, with clinical concern for metabolic bone disease. FINDINGS: ??Dual energy x-ray absorptiometry of the lumbar spine and femurs is performed. The mean bone mineral density at L2-3 is 1.250 gm/cm2 which is 104% of that of young normals and 116% of that of age matched controls. This yields a T-score of 0.4 and a Z-score of 1.5 and there is therefore no evidence of osteoporosis or osteopenia here. The mean bone mineral density of the femurs bilaterally is 0.858 gm/cm2 which is 85% of that of young normals and 95% of that of age matched controls. ??This yields a T-score of -1.2 and a Z-score of -0.4 which is diagnostic of osteopenia. ??The T-score of the right femoral neck is -1.6 and that of the left femoral neck is -1.4 which is diagnostic of osteopenia. IMPRESSION: 1. Osteopenia. ??There has been an increase of 10.5% in bone mineral density in the lumbar spine since the prior examination of 10/18/2020. ??There has been an increase of 2.4% in bone mineral density in the right femur and an increase of 1.5% in bone mineral density in the left femur. 2. FRAX analysis yields a 10-year probability of major osteoporotic fracture of 48.3% and a 10-year probability of hip fracture of 4.3%. Code 31092 Dictating Physician: ??ANGELINE DAY MD Electronically Signed by: ??ANGELINE DAY MD Dic Date/Time: ??09/13/21 1205 Sign date/Time: ??09/13/21 1206 Procedure Note Angeline Day MD - 08/21/2022 [facility] Diagnostic Imaging Department [address] [place] [id number] Patient: KRISTAL POSADA Carolann RaglandB./Age/Sex: 1955 - Unit#: [id number] [facility] CLI [facility]emonic[facility] Ordering Physician: EVELIA AGUIRRE MUSIC VIDEO DIRECTOR Reji Dexa Axial Skeleton - 09/13/21 - 1033 HISTORY: The patient is a 66-year-old postmenopausal female on chronic glucocorticoid therapy, with clinical concern for metabolic bonedisease. FINDINGS: Dual energy x-ray absorptiometry of the lumbar spine and femursis performed. The mean bone mineral density at L2-3 is 1.250 gm/cm2 which is104% of that of young normals and 116% of that of age matched controls. Thisyields a T-score of 0.4 and a Z-score of 1.5 and there is therefore no evidenceof osteoporosis or osteopenia here. The mean bone mineral density of the femurs bilaterally is 0.858 gm/cs6ocpad is 85% of that of young normals and 95% of that of age matched controls.This yields a T-score of -1.2 and a Z-score of -0.4 which is diagnostic of osteopenia. The T-score of the right femoral neck is -1.6 and that of theleft femoral neck is -1.4 which is diagnostic of osteopenia. IMPRESSION: 1. Osteopenia. There has been an increase of 10.5% in bone mineraldensity in the lumbar spine since the prior examination of 10/18/2020. There has beenan increase of 2.4% in bone mineral density in the right femur and anincrease of 1.5% in bone mineral density in the left femur. 2. FRAX analysis yields a 10-year probability of major osteoporoticfracture of 48.3% and a 10-year probability of hip fracture of 4.3%. Code 60656 Dictating Physician: ANGELINE DAY MD Electronically Signed by: ANGELINE DAY MD Dic Date/Time: 09/13/21 1205 Sign date/Time: 09/13/21 1206 Evelia Benedict Leslie DRAINLAYER IMG BI PROCEDURES F inal Result from Last 3 Months or Most Recently Relevant to Health Maintenance Care Teams Boner Meat Relationship Specialty Start Date End Date Bo Shi MD [address] [place] [address] [place] [address] PCP - General Internal Medicine 02/04/22
[2024-10-15 11:12] LABS: Anion Gap 14 (12-20); Blood Urea Nitrogen 8 mg/dL (9-16); Carbon Dioxide 24 mmol/L (22-29); Chloride 97 mmol/L (96-108); Estimated Glomerular Filt Rate > 60; Glucose Random 111 mg/dL (60-115); Potassium 4.5 mmol/L (3.3-5.1); Sodium 130 mmol/L (135-145)
[2024-10-20 21:18] LABS: Vitamin D 25-OH, D2 <4 ng/mL; Vitamin D 25-OH, D3 45 ng/mL; Vitamin D 25-OH, Total 45 ng/mL (30-100)
== END 2024-10-15 09:27 | disposition home or self-care (01) ==
LOC: HO.LAB 09:26
PROVIDERS: PCP Family Medicine; Visit Provider Student in an Organized Health Care Education/Training Program
DX: M81.0 Age-related osteoporosis without current pathological fracture (principal); E55.9 Vitamin D deficiency, unspecified
CPT/HCPCS: 36415; 80048; 82306

== ENCOUNTER 2024-10-19 09:26 | Outpatient (AMB) | payer MEDICARE, SELFPAY ==
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
[2024-10-19 09:55] VITALS: BP 130/80; PULSE 72; O2SAT 97
--- OUTSIDE RECORDS SUMMARY | 2024-10-19 10:11 | XMS_ITS | Clinical Summary ---
Author Organization [facility] it Address [address] [place] [address] Care Team Providers Care Construction Representative Name Role Phone Bo Shi MD Primary Care Provider [phone] Surgical History Surgery Date Site/Laterality Comments OTHER SURGICAL HISTORY PROCEDURE: MA TOTAL ABDOMINAL HYSTERECT W/WO RMVL TUBE OVARY [...] tubular adenomas. UPPER GASTROINTESTINAL ENDOSCOPY 10/12/2020 PROCEDURE: MA UPPER GI ENDOSCOPY PERFORMED; COMMENT: Visually normal, duodenal biopsies obtained: Normal. Medical History Medical History Date Comments Allergic rhinitis 12/06/2014 DX:Allergic rh initis Asthma 12/25/2010 DX:Asthma Bipolar disorder ([facility]) 05/20/2017 DX:Bi polar disorder ([facility]) Cervical disc disorder with radiculopathy 01/27/2015 DX:Cervical disc disorder wi th radiculopathy Chronic anxiety 10/14/2017 DX:Chronic anxie ty Constipation 12/22/2015 DX:Constipation Depression 06/13/2010 DX:Depression Diverticulosis 12/13/2014 DX:Diverticulosi s GERD (gastroesophageal reflu x disease) 02/06/2018 DX:GERD (gastroesophageal re flux disease) Herniated lumbar intervertebral disc 06/13/2010 DX:Herniated lumbar intervertebral disc History of knee replacement 07/01/2018 DX:H istory of knee replacement History of substance abuse ([facility]) 05/15/2012 DX:History of substance abuse ([facility]); COMMENT: opioids HTN (hypertension) 06/13/2010 DX:HTN (hyper tension) Hyperlipidemia 02/06/2018 DX:Hyperlipidemi a Lumbar spondylosis 11/20/2013 DX:Lumbar spo ndylosis Mitral prolapse 06/13/2010 DX:Mitral prolap se Mitral regurgitation 08/01/2009 DX:Mitral r egurgitation Mood disorder ([facility]) 04/16/2011 DX:Mood disorder ([facility]) Multilevel degenerative disc disease 07/29/2016 DX:Multilevel degenerative disc disease Osteoporosis 06/13/2010 DX:Osteoporosis Pain syndrome, chronic 01/17/2016 DX:Pain s yndrome, chronic Peripheral neuropathy 05/11/2014 DX:Periphe ral neuropathy Prediabetes 02/06/2018 DX:Prediabetes RA (rheumatoid arthritis) ([facility]) 06/13/2010 DX:RA (rheumatoid arthritis) ([facility]) Scoliosis 02/13/2015 DX:Scoliosis Tubular adenoma of colon 01/08/2017 DX:Tubu lar adenoma of colon; COMMENT: Small sigmoid colon polyp at CN 07/12/2010. CN 10/02/2010: 7 mm tubular adenoma at 30 cm. Next colonoscopy indicated 2015. Urinary incontinence 12/25/2010 DX:Urinary incontinence Vitamin D deficiency 02/04/2018 DX:Vitamin D deficiency CKD (chronic kidney disease) stage 3, GFR 30-59 ml/min ([facility]) 07/14/2018 DX:CKD (chronic kidney dise ase) stage 3, GFR 30-59 ml/min ([facility]) Family History Medical History Relation Name Comments [...] screening mammogram for malignant neoplasm of breast [facility] DEXA AXIAL SKELETON Routine 09/13/2021 12:06 PM EST Encounter for screening for osteoporosis from Last 3 Months or Most Recently Relevant to Health Maintenance Results * [facility] SCREENING DIGITAL (04/09/2023 10:23 AM EDT) Anatomical Region Laterality Modality Mammography 04/09/2023 9:04 AM EDT Narrative 04/09/2023 10:23 AM EDT [facility] Diagnostic Imaging Department [address] [place] [address] Patient: ??KRISTAL POSADA ?/Age/Sex: 1955 - F Unit#: ??[id number] ? Location/Status: ??SPDIMAM/REG CLI ? Mnemonic/Ordering Site: ??DIGSC/SPMAM Ordering Physician: ??OB SHI MD [facility] Screening Digital - 04/09/23927 Report Status:Signed EXAM: [facility] Screening Digital EXAM DATE AND TIME: 04/09/2023 9:28 AM HISTORY: ??Annual screening COMPARISON: ??04/04/2022, 04/02/2021, 03/30/2020, 03/17/2019 TECHNIQUE: Bilateral digital breast tomosynthesis was performed in the CC and MLO projections. Computer aided detection with Open Energi 3D 3.1 was employed. TISSUE DENSITY: b. [...] screening mammogram BILATERAL in 1 year. 3341F, 7003F Dictating Physician: ??NEYMAR LUCIA MD Electronically Signed by: ??NEYMAR LUCIA MD Dic Date/Time: ??04/09/23 1019 Sign date/Time: ??04/09/23 1023 Procedure Note Neymar Lucia MD - 10/07/2023 [facility] Diagnostic Imaging Department [address] [place] [address] Patient: KRISTAL POSADA GALEN Solis.O.B./Age/Sex: 1955 - 67 -F Unit#: [id number] Location/Status: [facility] CLI Mnemonic/Ordering Site: [facility] Ordering Physician: BO SHI MD [facility] Screening Digital - 04/09/23927 Report Status:Signed EXAM: [facility] Screening Digital EXAM DATE AND TIME: 04/09/2023 9:28 AM HISTORY: Annual screening COMPARISON: 04/04/2022, 04/02/2021, 03/30/2020, 03/17/2019 TECHNIQUE: Bilateral digital breast tomosynthesis was performed in the CCand MLO projections. Computer aided detection with Open Energi 3D 3.1was employed. TISSUE DENSITY: b. There [...] MD IMG BI PROCEDURES Final Result * [facility] DEXA AXIAL SKELETON (09/13/2021 12:06 PM EST) Anatomical Region Laterality Modality Mammography 09/13/2021 9:57 AM EST Narrative 09/13/2021 12:06 PM EST [facility] Diagnostic Imaging Department [address] [place] [address] Patient: ??KRISTAL POSADA ?/Age/Sex: 1955 - 66 - F Unit#: ??[id number] ? Location/Status: ??SPDIMAM/REG CLI ? Mnemonic/Ordering Site: ??MAMDEXAAX/SPMAM Ordering Physician: ??LESLIEEVELIA MIRZA NP [facility] Dexa Axial Skeleton - 09/13/21 [...] probability of hip fracture of 4.3%. Code 97975 Dictating Physician: ??ANGELINE DAY MD Electronically Signed by: ??ANGEILNE DAY MD Dic Date/Time: ??09/13/21 1205 Sign date/Time: ??09/13/21 1206 Procedure Note Angeline Day MD - 08/21/2022 [facility] Diagnostic Imaging Department [address] [place] [address] Patient: KRISTAL POSADA Carolann RaglandB./Age/Sex: 1955 - Unit#: [id number] [facility] CLI [facility]emonic[facility] Ordering Physician: EVELIA AGUIRRE BUDGET ANALYST [facility] Dexa Axial Skeleton - 09/13/21 - [...] density of the femurs bilaterally is 0.858 gm/ui7dueow is 85% of that of young normals [...] probability of hip fracture of 4.3%. Code 73269 Dictating Physician: ANGELINE DAY MD Electronically Signed by: ANGELINE DAY MD Dic Date/Time: 09/13/21 1205 Sign date/Time: 09/13/21 1206 Evelia Benedict Leslie ROLL UP MACHINE OPERATOR IMG BI PROCEDURES F inal Result from Last 3 Months or Most Recently Relevant to Health Maintenance Care Teams Construction Representative Relationship Specialty Start Date End Date Bo Shi MD [address] [place] [address] [place] [address] PCP - General Internal Medicine 02/04/22
--- NOTE | 2024-10-19 10:20 | AM.OFFVISNUR ---
Vital Signs 10/19/24 09:55 Height 5 ft 2 in BMI Reason not done Patient refused/unable BP 130/80 Blood Pressure Location Lt brachial Position Sitting Pulse 72 Pulse Source Pulse Oximeter Pulse Oximetry (%) 97 Oxygen Delivery Method Room Air Intake Visit Reasons: RA folow up and osteoporosis prolia injection Allergies morphine Allergy (Unknown, Verified 10/19/24 09:52) hallucinations Clindamycin HCl Allergy (Severe, Uncoded 02/13/24 16:03) diarrhea mustard Allergy (Unknown, Uncoded 02/13/24 16:03) Unknown sugar substitute Allergy (Unknown, Uncoded 02/13/24 16:03) Unknown Medication List - Last Reconciled 10/19/24 by Bhumika Lezama MD abatacept (Orencia ClickJect) 125 mg subcut QWEEK acetaminophen ER 650 mg PO Q8H PRN aripiprazole (Abilify) 5 mg PO DAILY calcium carbonate-vitamin D3 600 mg-10 mcg (400 unit) tabs PO DAILY cholecalciferol (vitamin D3) 50 mcg PO DAILY denosumab (Prolia) 60 mg subcut [id number] diazepam 10 mg PO DAILY PRN fluticasone propionate 50 mcg/actuation sprays intranasal folic acid 1 mg PO DAILY food supplemt, lactose-reduced (Boost High Protein) 1 ea PO DAILY ibuprofen 400 mg PO BID PRN methenamine hippurate 1 g PO DAILY methotrexate sodium 12.5 mg (5 x 2.5 mg) PO QWEEK metoprolol succinate ER 25 mg PO DAILY jrvzmhps-gpp-CX-lycopen-lutein 0.4 mg-300 mcg- 250 mcg (Centrum Silver) 1 tab PO DAILY pantoprazole 40 mg PO DAILY pravastatin 40 mg PO DAILY prazosin 5 mg PO BEDTIME prednisone 5 mg PO DIRECTED tramadol 50 mg PO DAILY PRN venlafaxine ER 150 mg PO DAILY Office Meds Prolia 60 mg/mL subcutaneous syringe Performing Provider: Bhumika Lezama MD Performing Location: [facility] Rhe[facility] Administered by: Ori Vaz RN on 10/19/24 10:22 Dose Route Admin Location Dispensed Lot Number Expiration Date NDC Aeronautical Engineer 60 mg subcut Left posterior upper arm 1 mL [id number] 03/31/27 89308-165-11 AMGEN Comments: Prolia(denosumab) 60 mg/mL injection administered to patient subcutaneously in the the Left posterior upper arm. Patient tolerated the procedure well. Patient reminded to monitor for adverse injection site reactions and s/s of anaphylaxis. Patient reminded that should she experience any injection site reactions or s/s of anaphylaxis, to seek urgent medical attention. Patient given 6 month follow/up appointment. Assessment & Plan Assessment & Plan (1) Seropositive rheumatoid arthritis: Comment: Disease onset in the . Rheumatoid factor and CCP antibody positive. Previous trials with methotrexate, Enbrel, Humira, Kevzara, Xeljanz, Simponi, sulfasalazine, Actemra- mostly ineffective. Some nausea with methotrexate at high doses. Orencia since 2019 with modest response Code(s): M05.9 - Rheumatoid arthritis with rheumatoid factor, unspecified Category: Medical (2) Generalized osteoarthritis: Code(s): M15.9 - Polyosteoarthritis, unspecified Category: Medical (3) Osteoporosis: Comment: Initially on alendronate -2020 stopped due to decline in eGFR. Prolia started 2019 DEXA 01/2024: Left femur neck -1.2, Left femur total -0.9, AP spine 0.6 Code(s): M81.0 - Age-related osteoporosis without current pathological fracture Category: Medical Qualifiers: Osteoporosis type: unspecified Presence of current pathological fracture: without current pathological fracture Qualified Code(s): M81.0 - Age-related osteoporosis without current pathological fracture (4) On abatacept therapy: Code(s): Z79.899 - Other detention (current) drug therapy Category: Medical (5) watermaster systemic steroid user: Code(s): Z79.52 - watermaster (current) use of systemic steroids Category: Medical (6) Encounter for monitoring denosumab therapy: Code(s): Z51.81 - Encounter for therapeutic drug level monitoring; Z79.620 - longterm (current) use of immunosuppressive biologic Category: Medical Orders: Orders AMB Denosumab Injection Practice Supplied Today M19.041 - Primary osteoarthritis, right hand, M19.042 - Primary osteoarthritis, left hand Protein Electrophoresis,Ran Ur Today R77.9 - Abnormality of plasma protein, unspecified Medications: New Prolia (denosumab) 60 mg subcut ONCE 1 mL 0RF NS M19.041 - Primary osteoarthritis, right hand, M19.042 - Primary osteoarthritis, left hand Coding Diagnoses Seropositive rheumatoid arthritis M05.9 Generalized osteoarthritis M15.9 Osteoporosis without current pathological fracture, unspecified osteoporosis type M81.0 Osteoporosis type: unspecified Presence of current pathological fracture: without current pathological fracture On abatacept therapy Z79.899 longterm systemic steroid user Z79.52 Encounter for monitoring denosumab therapy Z51.81; Z79.620
== END 2024-10-19 10:37 | disposition home or self-care (01) ==
LOC: HO.RHE 09:26
PROVIDERS: PCP Family Medicine; Visit Provider Student in an Organized Health Care Education/Training Program
DX: M05.79 Rheumatoid arthritis with rheumatoid factor of multiple sites without organ or systems involvement (principal); M81.0 Age-related osteoporosis without current pathological fracture; Z79.899 Other long term (current) drug therapy; Z79.52 Long term (current) use of systemic steroids; Z51.81 Encounter for therapeutic drug level monitoring; Z79.620 Long term (current) use of immunosuppressive biologic; M19.041 Primary osteoarthritis, right hand; M19.042 Primary osteoarthritis, left hand; M25.512 Pain in left shoulder
CPT/HCPCS: 20610; 99215

== ENCOUNTER → 2024-10-19 09:26 | Outpatient (BNVA) | payer OTHER, SELFPAY | PROVIDERS: PCP Family Medicine; Visit Provider Student in an Organized Health Care Education/Training Program | DX: M81.0 Age-related osteoporosis without current pathological fracture (principal); Z51.81 Encounter for therapeutic drug level monitoring; Z79.52 Long term (current) use of systemic steroids; Z79.620 Long term (current) use of immunosuppressive biologic; Z79.899 Other long term (current) drug therapy | CPT/HCPCS: 20610; 99212; J0897 ==

== ENCOUNTER 2025-01-12 11:49 | Outpatient (REF) | payer OTHER, SELFPAY ==
[2025-01-12 12:08] LABS: MANUAL DIFF FLAG NO
[2025-01-12 12:38] LABS: Basophils Absolute Auto 0.1 X10*3/uL (0.0-0.2); Eosinophils Absolute Auto 0.2 X10*3/uL (0.0-0.4); Eosinophils Percent Auto 2.8 % (0-4); Hematocrit 32.4 % (37.0-47.0); Hemoglobin 10.2 g/dl (12.0-16.0); Imm Gran Abs Auto 0.02 X10*3/uL (0.00-0.03); Imm Gran Pct Auto 0.3 % (0.0-0.4); Lymphocytes Absolute Auto 1.7 X10*3/uL (1.2-4.9); Lymphocytes Percent Auto 28.2 % (20-40); Mean Corpuscular HGB Conc 31.5 g/dl (31.0-35.0); Mean Corpuscular Hemoglobin 27.6 pg (27.0-33.0); Mean Corpuscular Volume 87.8 fL (80.0-98.0); Mean Platelet Volume 9.4 fL (9.4-12.3); Monocytes Absolute Auto 0.6 X10*3/uL (0.1-1.2); Monocytes Percent Auto 9.8 % (2-11); Neutrophils Absolute Auto 3.6 x10*3/uL (2.0-8.3); Neutrophils Percent Auto 57.9 % (45-73); Platelet Count 289 X10*3/uL (160-400); Red Blood Count 3.69 X10*6/uL (4.20-5.50); Red Cell Distribution Width 15.3 % (11.0-16.0); White Blood Count 6.1 X10*3/uL (4.8-10.8)
--- OUTSIDE RECORDS SUMMARY | 2025-01-12 12:39 | XMS_ITS | Clinical Summary ---
Author Organization [facility] Address [address] [place] [address] Phone Care Team Providers Care Therapeutic Activities Services Worker Name Role Phone Colin Shi MD Primary Care Provider [phone] Encounters Date Type Department Care Team Description 11/23/2024 8:09 AM EDT - 11/23/2024 11:59 PM EDT [facility] at [address] [address] Encounter for screening mammogram for breast cancer Discharge Disposition: Home or Self Care from Last 3 Months Surgical History Surgery Date Site/Laterality Comments OTHER SURGICAL HISTORY PROCEDURE: IA TOTAL ABDOMINAL HYSTERECT W/WO RMVL TUBE OVARY [...] tubular adenomas. UPPER GASTROINTESTINAL ENDOSCOPY 10/12/2020 PROCEDURE: IA UPPER GI ENDOSCOPY PERFORMED; COMMENT: Visually normal, duodenal biopsies obtained: Normal. HYSTERECTOMY Medical History Medical History Date Comments Allergic rhinitis 12/06/2014 DX:Allergic rh initis Asthma 12/25/2010 DX:Asthma Bipolar disorder (CMS/HCC V2 4, CMS/HCC V28) 05/20/2017 DX:Bipolar disorder (HCC) Cervical disc disorder with radiculopathy 01/27/2015 DX:Cervical disc disorder wi th radiculopathy Chronic anxiety 10/14/2017 DX:Chronic anxie ty Constipation 12/22/2015 DX:Constipation Depression 06/13/2010 DX:Depression Diverticulosis 12/13/2014 DX:Diverticulosi s GERD (gastroesophageal reflu x disease) 02/06/2018 DX:GERD (gastroesophageal re flux disease) Herniated lumbar intervertebral disc 06/13/2010 DX:Herniated lumbar intervertebral disc History of knee replacement 07/01/2018 DX:H istory of knee replacement History of substance abuse ( [facility] V24, [facility] V28) 05/15/2012 DX:History of substance abus e ([facility]); COMMENT: opioids HTN (hypertension) 06/13/2010 DX:HTN (hyper tension) Hyperlipidemia 02/06/2018 DX:Hyperlipidemi a Lumbar spondylosis 11/20/2013 DX:Lumbar spo ndylosis Mitral prolapse 06/13/2010 DX:Mitral prolap se Mitral regurgitation 08/01/2009 DX:Mitral r egurgitation Mood disorder ([facility] V24) 04/16/2011 DX:M ood disorder ([facility]) Multilevel degenerative disc disease 07/29/2016 DX:Multilevel degenerative disc disease Osteoporosis 06/13/2010 DX:Osteoporosis Pain syndrome, chronic 01/17/2016 DX:Pain s yndrome, chronic Peripheral neuropathy 05/11/2014 DX:Periphe ral neuropathy Prediabetes 02/06/2018 DX:Prediabetes RA (rheumatoid arthritis) ([place] V24, [facility] V28) 06/13/2010 DX:RA (rheumatoid arthritis) ([facility]) Scoliosis 02/13/2015 DX:Scoliosis Tubular adenoma of colon 01/08/2017 DX:Tubu lar adenoma of colon; COMMENT: Small sigmoid colon polyp at CN 07/12/2010. CN 10/02/2010: 7 mm tubular adenoma at 30 cm. Next colonoscopy indicated 2015. Urinary incontinence 12/25/2010 DX:Urinary incontinence Vitamin D deficiency 02/04/2018 DX:Vitamin D deficiency CKD (chronic kidney disease) stage 3, GFR 30-59 ml/min ([facility] V24, [facility] V28) 07/14/2018 DX:CKD (chronic kidney disea se) stage 3, GFR 30-59 ml/min ([facility]) Family History Medical History Relation Name Comments [...] = 0.6 oz pur e alcohol) Comments No Sex and Gender Information Value Date Recorded Sex Assigned at Female 10/20/2024 10:01 AM EST Legal Sex Female 2:39 PM EST Gender Identity Female 10/20/2024 10:01 AM EST Sexual Orientation Choose not to disclose 2024 10:01 AM EST Obstetrics History Para Term AB IAB SAB Ectopic Multiple Livin g Live Births 2 Last Filed Vital Signs Vital Sign Reading Time Taken Comments Blood Pressure - - Pulse - - Temperature - - Respiratory Rate - - Oxygen Saturation - - Inhaled Oxygen Concentration - - Weight 72.6 kg (160 lb) 11/23/2024 8:38 AM EDT Height 157.5 cm (5' 2 ) 11/23/2024 8:38 AM EDT Body Mass Index 29.26 11/23/2024 8:38 AM EDT Plan of Treatment Health Maintenance Due Date Last Done Comments Pneumococcal Vaccine: 50+ Years (3 of 3 - PCV20 or PCV21) 05/20/2021 05/20/2016, 04/25/2012, 06/13/2010 Cholesterol Screening (Lipid Panel) 08/10/2022 Colorectal Cancer Screening: Colonoscopy 08/10/2022 Depression Screening 08/10/2022 Falls Risk Assessment 08/10/2022 Hepatitis C Screening 08/10/2022 Medicare Annual Wellness Visit 08/10/2022 Social Influencers of Health Screening 08/10/2022 Hypertension/CHF/CAD Annual BMP Blood Test 10/03/2023 COVID-19 Vaccine (8 - Moderna risk season) 2024 05/12/2024, 06/02/2023, 07/22/2022, Additional history exists Breast Cancer Screening 11/23/2026 11/24/19 25, 04/09/2023, 04/04/2022, Additional history exists Osteoporosis Screening (Bone Density Screening) 09/13/2031 09/13/2021, 10/18/2020 DTaP,Tdap,and Td Vaccines (5 - Td or Tdap) 07/04/2033 07/04/2023, 09/15/2015, 06/13/2010, Additional history exists Zoster Vaccines Completed 06/19/2020, 04/20/2020 Influenza Vaccine Completed 05/12/2024, , 05/22/2022, Additional history exists RSV Immunization Adult Patients Completed 09/10/2024 HIB Vaccines Aged Out No longer eligi [...] age to complete this topic Meningococcal B Vaccine Aged Out No l onger eligible based on patient's age to complete this topic RSV Immunization Patients Under 20 months Aged Out No longer eligible based on patient's age to complete this topic Varicella Vaccines Aged Out No longer eligible based on patient's age to complete this topic Procedures Procedure Name Priority Date/Time Associated Diagnosis Comments MG MAMMO DIGITAL SCREENING W CHUCK BILAT Routine 11/23/2024 8:56 AM EDT Encounter for screening mammogram for breast cancer [facility] DEXA AXIAL SKELETON Routine 09/13/2021 12:06 PM EST Encounter for screening for osteoporosis from Last 3 Months or Most Recently Relevant to Health Maintenance Results * MG Mammo Digital Screening w Chuck bilat (11/23/2024 8:56 AM EDT) Anatomical Region Laterality Modality Breast Bilateral Mammography 11/25/2024 12:0 3 PM EDT Impressions 11/25/2024 12:08 PM EDT No mammographic evidence of malignancy. A negative mammogram in the presence of a clinically suspicious palpable abnormality does not preclude the possibility of malignancy or alter the indications for biopsy. PQRI CPT II 3342F Code 73652, 78013 PQRI 225 CPT II 7025F TISSUE DENSITY: There are scattered areas of fibroglandular density. (BI-RADS category B) IMPRESSION: Benign. BI-RADS CATEGORY: 2 - BENIGN RECOMMENDATION: Screening bilateral mammogram is recommended in 1 year. Mammo Location: [facility], [address] [place] [address] -------- FINAL REPORT -------- Dictated By: Angeline Day Dictated Date: 11/25/2024 12:03 ET Assigned Physician: Angeline Day Reviewed and Electronically Signed By: Angeline Day Signed Date: 11/25/2024 12:08 ET Workstation ID: [id number] Transcribed By: Self Edit Transcribed Date: 11/25/2024 12:03 ET Narrative 11/25/2024 12:08 PM EDT CLINICAL: The patient is a 69 years Female presenting for routine screening mammography. COMPARISON: Most recently 04/09/2023 and most remotely 03/13/2018. ?? TECHNIQUE: Full-field digital mammography of the breasts bilaterally consisting of tomosynthesis in MLO and CC projection is performed in the [employer] 2000-D unit. ??Computer aided detection utilizing the iCAD system was utilized. FINDINGS: The breasts are again seen to be composed of a combination of fatty and fibroglandular elements. ??Vascular calcifications are again noted. ??There is no suspicious cluster of microcalcifications, mass, or area of architectural distortion. There is no skin thickening or nipple retraction. Procedure Note Angeline Day MD - 11/25/2024 CLINICAL: The patient is a 69 years Female presenting for routinescreening mammography. COMPARISON: Most recently 04/09/2023 and most remotely 03/13/2018. TECHNIQUE: Full-field digital mammography of the breasts bilaterallyconsisting of tomosynthesis in MLO and CC projection is performed in the[employer] 2000-D unit. Computer aided detection utilizing the iCADsystem was utilized. FINDINGS: The breasts are again seen to be composed of a combination offatty and fibroglandular elements. Vascular calcifications are againnoted. There is no suspicious cluster of microcalcifications, mass, orarea of architectural distortion. There is no skin thickening or nippleretraction. IMPRESSION: No mammographic evidence of malignancy. A negative mammogram in the presence of a clinically suspicious palpableabnormality does not preclude the possibility of malignancy or alter theindications for biopsy. PQRI CPT II 3342F Code 40345, 42234 PQRI 225 CPT II 7025F TISSUE DENSITY: There are scattered areas of fibroglandular density.(BI-RADS category B) IMPRESSION: Benign. BI-RADS CATEGORY: 2 - BENIGN RECOMMENDATION: Screening bilateral mammogram is recommended in 1 year. Mammo Location: [facility], [facility], [address] [place] [address] -------- FINAL REPORT -------- Dictated By: Angeline Day Dictated Date: 11/25/2024 12:03 ET Assigned Physician: Angeline Day Reviewed and Electronically Signed By: Angeline Day Signed Date: 11/25/2024 12:08 ET Workstation ID: [id number] Transcribed By: Self Edit Transcribed Date: 11/25/2024 12:03 ET us Self Referral Sppl IMG BI PROCEDURES Final Resul t * REJI DEXA AXIAL SKELETON (09/13/2021 12:06 PM EST) Anatomical Region Laterality Modality Mammography 09/13/2021 9:57 AM EST Narrative 09/13/2021 12:06 PM EST [facility] Diagnostic Imaging Department [address] [place] [address] Patient: ??KRISTAL POSADA ?/Age/Sex: 1955 - 66 - F Unit#: ??[id number] ? Location/Status: ??SPDIMAM/REG CLI ? Mnemonic/Ordering Site: ??MAMDEXAAX/SPMAM Ordering Physician: ??EVELIA AGUIRRE SUPERVISOR [employer]CONOMICS Reji Dexa Axial Skeleton - 09/13/213 HISTORY: ??The patient is a 66-year-old postmenopausal [...] probability of hip fracture of 4.3%. Code 97308 Dictating Physician: ??ANGELINE DAY MD Electronically Signed by: ??ANGELINE DAY MD Dic Date/Time: ??09/13/21 1205 Sign date/Time: ??09/13/21 1206 Procedure Note Angeline Day MD - 08/21/2022 [facility] Diagnostic Imaging Department [address] [place] [address] Patient: KRISTAL POSADA Carolann RaglandB./Age/Sex: 1955 66 - F Unit#: [id number] Location/Status: [facility] CLI Mnemonic/Ordering Site: [facility] Ordering Physician: EVELIA AGUIRRE NP Reji Dexa Axial Skeleton - 09/13/21 - [...] density of the femurs bilaterally is 0.858 gm/pg6fvydm is 85% of that of young normals [...] probability of hip fracture of 4.3%. Code 47421 Dictating Physician: ANGELINE DAY MD Electronically Signed by: ANGELINE DAY MD Dic Date/Time: 09/13/21 1205 Sign date/Time: 09/13/21 1206 Evelia Benedict Leslie [employer] PARTS HANDLER IMG BI PROCEDURES F inal Result from Last 3 Months or Most Recently Relevant to Health Maintenance Insurance [place] [address] MEDICARE Member Subscriber Plan / Payer (Ef fective 2022-Present) Name:Kristal Posada Relation to Subscriber:Self Name:Kristal Posada Payer ID:[id number] Group ID:Not on file Type:Not on file Address: [facility] [address] [address] Care Teams Therapeutic Activities Services Worker Relationship Specialty Start Date End Date Colin Shi MD [address] [place] [address] [place] [address] PCP - General Internal Medicine 02/04/22
[2025-01-12 13:06] LABS: Alanine Aminotransferase 14 U/L (0-31); Albumin Level 3.7 g/dL (3.5-5.0); Alkaline Phosphatase 72 U/L (39-117); Anion Gap 14 (12-20); Aspartate Amino Transferase 25 U/L (5-31); Bilirubin Total 0.3 mg/dL (0.0-1.0); Blood Urea Nitrogen 5 mg/dL (9-16); C Reactive Protein 0.19 mg/dL (< or = 0.50); Calcium 8.5 mg/dL (8.4-10.2); Carbon Dioxide 22 mmol/L (22-29); Chloride 99 mmol/L (96-108); Estimated Glomerular Filt Rate > 60; Glucose Random 85 mg/dL (60-115); Iron 34 mcg/dL (30-160); Percent Iron Saturation 15 % (15-50); Potassium 4.5 mmol/L (3.3-5.1); Sodium 130 mmol/L (135-145); Total Iron Binding Capacity 228 mcg/dL (228-428); Total Protein 6.2 g/dL (6.5-8.0); Unsaturated Iron Binding 194 ug/dL
[2025-01-12 13:16] LABS: Erythrocyte Sedimentation Rate 30 MM/HR (0-20)
[2025-01-12 13:21] LABS: Free T4 (Free Thyroxine) 0.92 ng/dL (0.71-1.85)
[2025-01-18 11:54] LABS: PEU-Protein Creat Ratio Rand 0.098 (0.024-0.184); PEU-Rand. Prot/Creat Ratio 98 mg/g creat (24-184); PEU-Random Ur. Gamma Globulin 0 %; PEU-Random Urine A1 Globulin 0 %; PEU-Random Urine A2 Globulin 0 %; PEU-Random Urine Albumin 100 %; PEU-Random Urine Beta Globulin 0 %; PEU-Random Urine Creatinine 82 mg/dL (20-275); PEU-Random Urine Protein 8 mg/dL (5-24)
== END 2025-01-12 11:50 | disposition home or self-care (01) ==
LOC: HO.LAB 11:49
PROVIDERS: Absent Provider Student in an Organized Health Care Education/Training Program; PCP Family Medicine; Visit Provider Family Medicine
DX: D64.9 Anemia, unspecified (principal); Z51.81 Encounter for therapeutic drug level monitoring; Z79.620 Long term (current) use of immunosuppressive biologic; Z79.899 Other long term (current) drug therapy; R77.9 Abnormality of plasma protein, unspecified; R53.83 Other fatigue
CPT/HCPCS: 36415; 80053; 82570; 83540; 84156; 84166; 84439; 85025; 85652; 86140

== ENCOUNTER 2025-01-26 08:31 | Outpatient (AMB) | payer OTHER, SELFPAY ==
--- OUTSIDE RECORDS SUMMARY | 2025-01-26 08:46 | XMS_ITS | Clinical Summary ---
Author Organization [facility] Address [address] [place] [address] Phone Care Team Providers Care Sewer Builder Name Role Phone Colin Shi MD Primary Care Provider [phone] Encounters Date Type Department Care Team Description 11/23/2024 8:09 AM EDT - 11/23/2024 11:59 PM EDT [facility] at [address] [address] Encounter for screening mammogram for breast cancer Discharge Disposition: Home or Self Care from Last 3 Months Surgical History Surgery Date Site/Laterality Comments OTHER SURGICAL HISTORY PROCEDURE: NC TOTAL ABDOMINAL HYSTERECT W/WO RMVL TUBE OVARY [...] tubular adenomas. UPPER GASTROINTESTINAL ENDOSCOPY 10/12/2020 PROCEDURE: NC UPPER GI ENDOSCOPY PERFORMED; COMMENT: Visually normal, [...] knee replacement History of substance abuse ( [facility] V24, [facility] V28) 05/15/2012 DX:History of substance abus e ([facility]); COMMENT: opioids HTN (hypertension) 06/13/2010 DX:HTN (hyper tension) Hyperlipidemia 02/06/2018 DX:Hyperlipidemi a Lumbar spondylosis 11/20/2013 DX:Lumbar spo ndylosis Mitral prolapse 06/13/2010 DX:Mitral prolap se Mitral regurgitation 08/01/2009 DX:Mitral r egurgitation Mood disorder ([facility] V24) 04/16/2011 DX:M ood disorder ([facility]) Multilevel degenerative disc disease 07/29/2016 DX:Multilevel degenerative disc disease Osteoporosis 06/13/2010 DX:Osteoporosis Pain syndrome, chronic 01/17/2016 DX:Pain s yndrome, chronic Peripheral neuropathy 05/11/2014 DX:Periphe ral neuropathy Prediabetes 02/06/2018 DX:Prediabetes RA (rheumatoid arthritis) ([facility] [place] V24, [facility] V28) 06/13/2010 DX:RA (rheumatoid arthritis) ([facility]) Scoliosis 02/13/2015 DX:Scoliosis Tubular adenoma of colon 01/08/2017 DX:Tubu lar adenoma of colon; COMMENT: Small sigmoid colon polyp at CN 07/12/2010. CN 10/02/2010: 7 mm tubular adenoma at 30 cm. Next colonoscopy indicated 2015. Urinary incontinence 12/25/2010 DX:Urinary incontinence Vitamin D deficiency 02/04/2018 DX:Vitamin D deficiency CKD (chronic kidney disease) stage 3, GFR 30-59 ml/min ([facility] V24, [facility] V28) 07/14/2018 DX:CKD (chronic kidney disea se) stage 3, GFR 30-59 ml/min ([facility]) Family History Medical History Relation [...] Encounter for screening mammogram for breast cancer [facility] DEXA AXIAL SKELETON Routine 09/13/2021 12:06 [...] for biopsy. PQRI CPT II 3342F Code 83362, 19669 PQRI 225 CPT II 7025F TISSUE DENSITY: There are scattered areas of fibroglandular density. (BI-RADS category B) IMPRESSION: Benign. BI-RADS CATEGORY: 2 - BENIGN RECOMMENDATION: Screening bilateral mammogram is recommended in 1 year. Mammo Location: [facility], [facility], [address] [place] [address] -------- FINAL REPORT -------- Dictated By: Angeline Day Dictated Date: 11/25/2024 12:03 ET Assigned Physician: Angeline Day Reviewed and Electronically Signed By: Angeline Day Signed Date: 11/25/2024 12:08 ET Workstation ID: [id number] Transcribed By: Self Edit Transcribed Date: 11/25/2024 12:03 ET Narrative 11/25/2024 12:08 PM EDT CLINICAL: The patient is a 69 years Female presenting for routine screening mammography. COMPARISON: Most recently 04/09/2023 and most remotely 03/13/2018. ?? TECHNIQUE: Full-field digital mammography of the breasts bilaterally consisting of tomosynthesis in MLO and CC projection is performed in the [employer] Ze 2000-D unit. ??Computer aided detection utilizing the [...] MLO and CC projection is performed in the[employer] 2000-D unit. Computer aided detection utilizing the [...] for biopsy. PQRI CPT II 3342F Code 26051, 49531 PQRI 225 CPT II 7025F TISSUE DENSITY: There are scattered areas of fibroglandular density.(BI-RADS category B) IMPRESSION: Benign. BI-RADS CATEGORY: 2 - BENIGN RECOMMENDATION: Screening bilateral mammogram is recommended in 1 year. Mammo Location: [facility], [facility], [address] [place] [address] -------- FINAL REPORT -------- Dictated By: Angeline Day Dictated Date: 11/25/2024 12:03 ET Assigned Physician: Angeline Day Reviewed and Electronically Signed By: Angeline Day Signed Date: 11/25/2024 12:08 ET Workstation ID: [id number] Transcribed By: Self Edit Transcribed Date: 11/25/2024 12:03 ET us Self Referral Sppl IMG BI PROCEDURES Final Resul t * REJI DEXA AXIAL SKELETON (09/13/2021 12:06 PM EST) Anatomical Region Laterality Modality Mammography 09/13/2021 9:57 AM EST Narrative 09/13/2021 12:[address] [facility] Diagnostic Imaging Department [address] [place] [address] Patient: ??KRISTAL POSADA ?/Age/Sex: 1955 - 66 - F Unit#: ??[id number] ? Location/Status: ??SPDIMAM/REG CLI ? Mnemonic/Ordering Site: ??MAMDEXAAX/SPMAM Ordering Physician: ??EVELIA AGUIRRE COATER OPERATOR Reji Dexa Axial Skeleton - 09/13/213 HISTORY: [...] probability of hip fracture of 4.3%. Code 65286 Dictating Physician: ??ANGELINE DAY MD Electronically Signed by: ??ANGELINE DAY MD Dic Date/Time: ??09/13/21 1205 Sign date/Time: ??09/13/21 1206 Procedure Note Angeline Day MD - 08/21/[address] [facility] Diagnostic Imaging Department [address] [place] [address] Patient: KRISTAL POSADA Carolann RaglandB./Age/Sex: 1955 66 - F Unit#: [id number] Location/Status: [facility] CLI Mnemonic/Ordering Site: [facility] Ordering Physician: EVELIA AGUIRRE NP Reji Dexa [...] density of the femurs bilaterally is 0.858 gm/be9accwf is 85% of that of young normals [...] probability of hip fracture of 4.3%. Code 58339 Dictating Physician: ANGELINE DAY MD Electronically Signed by: ANGELINE DAY MD Dic Date/Time: 09/13/21 1205 Sign date/Time: 09/13/21 1206 Evelia Benedict Leslie SUPERVISOR [employer] IMG BI PROCEDURES F inal Result from Last 3 Months or Most Recently Relevant to Health Maintenance [place] [address] [place] [address] MEDICARE Member Subscriber Plan / Payer (Ef fective 2022-Present) Name:Kristal Posada Relation to Subscriber:Self Name:Kristal Posada Payer ID:[id number] Group ID:Not on file Type:Not on file Address: [facility] [address] [address] Care Teams Sewer Builder Relationship Specialty Start Date End Date Colin Shi MD [address] [place] [address] [place] [address] PCP - General Internal Medicine 02/04/22
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
[2025-01-26 09:10] VITALS: BP 132/84; PULSE 74; O2SAT 98
== END 2025-01-26 09:27 | disposition home or self-care (01) ==
LOC: HO.RHE 08:31
PROVIDERS: PCP Family Medicine; Visit Provider Student in an Organized Health Care Education/Training Program
DX: M05.79 Rheumatoid arthritis with rheumatoid factor of multiple sites without organ or systems involvement (principal); M15.9 Polyosteoarthritis, unspecified; M81.0 Age-related osteoporosis without current pathological fracture; Z79.899 Other long term (current) drug therapy; Z51.81 Encounter for therapeutic drug level monitoring; Z79.620 Long term (current) use of immunosuppressive biologic; Z79.631 Long term (current) use of antimetabolite agent
CPT/HCPCS: 99214; G2211

== ENCOUNTER → 2025-01-26 08:31 | Outpatient (BNVA) | payer OTHER, SELFPAY | PROVIDERS: PCP Family Medicine; Visit Provider Student in an Organized Health Care Education/Training Program | DX: M05.9 Rheumatoid arthritis with rheumatoid factor, unspecified (principal); M15.9 Polyosteoarthritis, unspecified; M81.0 Age-related osteoporosis without current pathological fracture; Z79.899 Other long term (current) drug therapy; Z51.81 Encounter for therapeutic drug level monitoring; Z79.620 Long term (current) use of immunosuppressive biologic; Z79.631 Long term (current) use of antimetabolite agent | CPT/HCPCS: 99212 ==

== ENCOUNTER 2025-04-15 08:42 | Outpatient (REF) | payer OTHER, SELFPAY ==
--- OUTSIDE RECORDS SUMMARY | 2025-04-15 08:58 | XMS_ITS | Clinical Summary ---
Author Organization [facility] Address [address] [place] [address] Phone Care Team Providers Care Furniture Mover Name Role Phone Colin Shi MD Primary Care Provider [phone] Encounters Date Type Department Care Team Description 02/25/2025 Lab Requisition [facility] - Main Lab [address] [facility] [place] [phone] Rachel Mayo NP Frequency of micturition from Last 3 Months Surgical History Surgery Date Site/Laterality Comments OTHER SURGICAL HISTORY PROCEDURE: RI TOTAL ABDOMINAL HYSTERECT W/WO RMVL TUBE OVARY [...] tubular adenomas. UPPER GASTROINTESTINAL ENDOSCOPY 10/12/2020 PROCEDURE: RI UPPER GI ENDOSCOPY PERFORMED; COMMENT: Visually normal, duodenal biopsies obtained: Normal. HYSTERECTOMY Medical History Medical History Date Comments Allergic rhinitis 12/06/2014 DX:Allergic rh initis Asthma 12/25/2010 DX:Asthma Bipolar disorder (CMS/HCC V2 4, CMS/HCC V28) 05/20/2017 DX:Bipolar disorder ([facility]) Cervical disc disorder with radiculopathy 01/27/2015 DX:Cervical disc disorder wi th radiculopathy Chronic anxiety 10/14/2017 DX:Chronic anxie ty Constipation 12/22/2015 DX:Constipation Depression 06/13/2010 DX:Depression Diverticulosis 12/13/2014 DX:Diverticulosi s GERD (gastroesophageal reflu x disease) 02/06/2018 DX:GERD (gastroesophageal re flux disease) Herniated lumbar intervertebral disc 06/13/2010 DX:Herniated lumbar intervertebral disc History of knee replacement 07/01/2018 DX:H istory of knee replacement History of substance abuse ( [facility] V24, [facility] V28) 05/15/2012 DX:History of substance abus e ([facility]); COMMENT: opioids HTN (hypertension) 06/13/2010 DX:HTN (hyper tension) Hyperlipidemia 02/06/2018 DX:Hyperlipidemi a Lumbar spondylosis 11/20/2013 DX:Lumbar spo ndylosis Mitral prolapse 06/13/2010 DX:Mitral prolap se Mitral regurgitation 08/01/2009 DX:Mitral r egurgitation Mood disorder ([facility] V24) 04/16/2011 DX:M ood disorder ([facility]) Multilevel degenerative disc disease 07/29/2016 DX:Multilevel degenerative disc disease Osteoporosis 06/13/2010 DX:Osteoporosis Pain syndrome, chronic 01/17/2016 DX:Pain s yndrome, chronic Peripheral neuropathy 05/11/2014 DX:Periphe ral neuropathy Prediabetes 02/06/2018 DX:Prediabetes RA (rheumatoid arthritis) ([facility] V24, [facility] V28) 06/13/2010 DX:RA (rheumatoid arthritis) ([facility]) Scoliosis 02/13/2015 DX:Scoliosis Tubular adenoma of colon 01/08/2017 DX:Tubu lar adenoma of colon; COMMENT: Small sigmoid colon polyp at CN 07/12/2010. CN 10/02/2010: 7 mm tubular adenoma at 30 cm. Next colonoscopy indicated 2015. Urinary incontinence 12/25/2010 DX:Urinary incontinence Vitamin D deficiency 02/04/2018 DX:Vitamin D deficiency CKD (chronic kidney disease) stage 3, GFR 30-59 ml/min ([facility] V24, [facility] V28) 07/14/2018 DX:CKD (chronic kidney disea se) stage 3, GFR 30-59 ml/min ([facility]) Family History Medical History Relation [...] Panel) 08/10/2022 Colorectal Cancer Screening: Colonoscopy 08/10/2022 Falls Risk Assessment 08/10/2022 Hepatitis C Screening 08/10/2022 Medicare Annual Wellness Visit 08/10/2022 Social Influencers of Health Screening 08/10/2022 Hypertension/CHF/CAD Annual BMP Blood Test 10/03/2023 Depression Screening 09/01/2024 COVID-19 Vaccine (8 - Moderna risk season) 2024 05/12/2024, 06/02/2023, 07/22/2022, Additional history exists Influenza Vaccine (#1) 2025 , 06/02/2023, 05/22/2022, Additional history exists Breast Cancer Screening 11/23/2026 11/24/19 25, 04/09/2023, 04/04/2022, Additional history exists Osteoporosis Screening (Bone Density Screening) 09/13/2031 09/13/2021, 10/18/2020 DTaP,Tdap,and Td Vaccines (5 - Td or Tdap) 07/04/2033 07/04/2023, 09/15/2015, 06/13/2010, Additional history exists Zoster Vaccines Completed 06/19/2020, 04/20/2020 RSV Immunization Adult Patients Completed 09/10/2024 HIB [...] Procedure Name Priority Date/Time Associated Diagnosis Comments CULTURE URINE Routine 02/25/2025 12:00 AM EDT Frequency of micturition MG MAMMO DIGITAL SCREENING W CHUCK BILAT Routine 11/23/2024 8:56 AM EDT Encounter for screening mammogram for breast cancer REJI DEXA AXIAL SKELETON Routine 09/13/2021 12:06 PM EST Encounter for screening for osteoporosis from Last 3 Months or Most Recently Relevant to Health Maintenance Results * Culture urine (02/25/2025 12:00 AM EDT) Culture, Urine No growth 02/26/2025 9:11 AM EDT [facility] Urine Urine specimen obtained by clean catch procedure / Unknown 02/25/2025 02/25/2025 11:28 AM EDT us Rachel Mayo CO FOUNDER AND DIRECTOR LAB MICROBIOLOGY - GENERA L ORDERABLES Final Result [facility] [address] [place] [address], * MG Mammo Digital Screening w Chuck [...] for biopsy. PQRI CPT II 3342F Code 28243, 90250 PQRI 225 CPT II 7025F TISSUE DENSITY: There are scattered areas of fibroglandular density. (BI-RADS category B) IMPRESSION: Benign. BI-RADS CATEGORY: 2 - BENIGN RECOMMENDATION: Screening bilateral mammogram is recommended in 1 year. Mammo Location: [facility], [address] [place] [id number] -------- FINAL REPORT -------- Dictated By: Angeline Day Dictated Date: 11/25/2024 12:03 ET Assigned Physician: Angeline Day Reviewed and Electronically Signed By: Angeline Day Signed Date: 11/25/2024 12:08 ET Workstation ID: [id number] Transcribed By: Self Edit Transcribed Date: 11/25/2024 12:03 ET Narrative 11/25/2024 12:08 PM EDT CLINICAL: The patient is a 69 years Female presenting for routine screening mammography. COMPARISON: Most recently 04/09/2023 and most remotely 03/13/2018. TECHNIQUE: Full-field digital mammography of the breasts bilaterally consisting of tomosynthesis in MLO and CC projection is performed in the Osurve 2000-D unit. Computer aided detection utilizing the iCAD system was utilized. FINDINGS: The breasts are again seen to be composed of a combination of fatty and fibroglandular elements. Vascular calcifications are again noted. There is no suspicious cluster of microcalcifications, [...] MLO and CC projection is performed in theOsurve 2000-D unit. Computer aided detection utilizing the ClearDATAystem was utilized. FINDINGS: The breasts are again [...] for biopsy. PQRI CPT II 3342F Code 27741, 85388 PQRI 225 CPT II 7025F TISSUE DENSITY: There are scattered areas of fibroglandular density.(BI-RADS category B) IMPRESSION: Benign. BI-RADS CATEGORY: 2 - BENIGN RECOMMENDATION: Screening bilateral mammogram is recommended in 1 year. Mammo Location: [facility], [address] [place] [id number] -------- FINAL REPORT -------- Dictated By: Angeline Day Dictated Date: 11/25/2024 12:03 ET Assigned Physician: Angeline Day Reviewed and Electronically Signed By: Angeline Day Signed Date: 11/25/2024 12:08 ET Workstation ID: [id number] Transcribed By: Self Edit Transcribed Date: 11/25/2024 12:03 ET us Self Referral Sppl IMG BI PROCEDURES Final Resul t * REJI DEXA AXIAL SKELETON (09/13/2021 12:06 PM EST) Anatomical Region Laterality Modality Mammography 09/13/2021 9:57 AM EST Narrative 09/13/2021 12:06 PM [facility] Diagnostic Imaging Department [address] [place], [place] [id number] Patient: KRISTAL POSADA Carolann RaglandB./Age/Sex: 1955 66 - F Unit#: [id number] [facility] Ordering Physician: EVELIA NELSON CO FOUNDER AND DIRECTOR Reji Dexa Axial Skeleton - 09/13/211032 HISTORY: The patient is a 66-year-old postmenopausal female on chronic glucocorticoid therapy, with clinical concern for metabolic bone disease. FINDINGS: Dual energy x-ray absorptiometry of the [...] 95% of that of age matched controls. This yields a T-score of -1.2 and a [...] the prior examination of 10/18/2020. There has been an increase of 2.4% in bone mineral density in the right femur and an increase of 1.5% in bone mineral density in the left femur. 2. FRAX analysis yields a 10-year probability of major osteoporotic fracture of 48.3% and a 10-year probability of hip fracture of 4.3%. Code 14301 Dictating Physician: ANGELINE DAY MD Electronically Signed by: ANGELINE DAY MD Dic Date/Time: 09/13/21 1205 Sign date/Time: 09/13/21 1206 Procedure Note Angeline Day MD - 08/21/2022 [facility] Diagnostic Imaging Department [address] [place] [address] Patient: KRISTAL POSADA Carolann RaglandB./Age/Sex: 1955 - 66 - F Unit#: [id number] [facility] Ordering Physician: EVELIA NELSON CO FOUNDER AND DIRECTOR Reji Dexa Axial Skeleton - 09/13/21 - 3 HISTORY: The patient is a 66-year-old postmenopausal [...] density of the femurs bilaterally is 0.858 gm/mk5rhsis is 85% of that of young normals [...] probability of hip fracture of 4.3%. Code 52916 Dictating Physician: ANGELINE DAY MD Electronically Signed by: ANGELINE DAY MD Dic Date/Time: 09/13/21 1205 Sign date/Time: 09/13/21 1206 Evelia Nelson [facility] IM BI PROCEDURES F inal Result from Last 3 Months or Most Recently Relevant to Health Maintenance Insurance MEDICARE Member Subscriber Plan / Payer (Ef fective 2022-Present) Name:KRISTAL POSADA Relation to Subscriber:Self Name:Kristal Posada Payer ID:[id number] Group ID:[id number] Type:Not on file Address: [address] [place] [id number] Care Teams Furniture Mover Relationship Specialty Start Date End Date Colin Shi MD [address] [place] [address] Dr Ken, [place]W [address] PCP - General Internal Medicine 02/04/22
[2025-04-15 13:52] LABS: Alanine Aminotransferase 17 U/L (0-31); Albumin Level 3.9 g/dL (3.5-5.0); Alkaline Phosphatase 85 U/L (39-117); Anion Gap 14 (12-20); Aspartate Amino Transferase 27 U/L (5-31); Blood Urea Nitrogen 6 mg/dL (9-16); Calcium 9.8 mg/dL (8.4-10.2); Carbon Dioxide 26 mmol/L (22-29); Chloride 96 mmol/L (96-108); Estimated Glomerular Filt Rate 58; Potassium 4.1 mmol/L (3.3-5.1); Sodium 132 mmol/L (135-145); Total Protein 6.4 g/dL (6.5-8.0)
== END 2025-04-15 08:43 | disposition home or self-care (01) ==
LOC: HO.HKASLDS 08:42
PROVIDERS: Visit Provider Student in an Organized Health Care Education/Training Program
DX: M81.0 Age-related osteoporosis without current pathological fracture (principal); Z79.899 Other long term (current) drug therapy
CPT/HCPCS: 36415; 80053; 82306

== ENCOUNTER 2025-04-19 08:29 | Outpatient (REF) | payer OTHER, SELFPAY | END 2025-04-19 08:30 | disposition home or self-care (01) | LOC: HO.HKASLDS 08:29 | PROVIDERS: PCP Family Medicine; Visit Provider Student in an Organized Health Care Education/Training Program | DX: M81.0 Age-related osteoporosis without current pathological fracture (principal) | CPT/HCPCS: 96372; J0897 ==

== ENCOUNTER 2025-04-19 08:29 | Outpatient (AMB) | payer OTHER, SELFPAY ==
--- NOTE | 2025-04-19 08:57 | AM.OFFVISNUR ---
Intake Visit Reasons: Prolia Injection Allergies morphine Allergy (Unknown, Verified 01/26/25 09:04) hallucinations Clindamycin HCl Allergy (Severe, Uncoded 02/13/24 16:03) diarrhea mustard Allergy (Unknown, Uncoded 02/13/24 16:03) Unknown sugar substitute Allergy (Unknown, Uncoded 02/13/24 16:03) Unknown Office Meds Prolia 60 mg/mL subcutaneous syringe Performing Provider: Bhumika Lezama MD Performing Location: [facility] Rheumatology-[facility] Administered by: Ori Vaz RN on 04/19/25 08:57 Dose Route Admin Location Dispensed Lot Number Expiration Date NDC Manager Qa 60 mg subcut 1 mL [id number] 02/28/27 90144-791-24 AMGEN Total Dispensed Waste 1 mL 0 % Comments: Kristal Jeffery presents today for Prolia (Denosumab) 60 mg/mL injection for the treatment of osteoporosis. The patient has not had any recent fever or illness. The injection site to be used is without erythema, edema, and is clean, dry, and intact. The patient tolerated the procedure well. No injection site reactions noted. The patient was discharged from the practice. Assessment & Plan Assessment & Plan Orders: Orders AMB Denosumab Injection Practice Supplied Today M81.0 - Age-related osteoporosis without current pathological fracture Coding
--- OUTSIDE RECORDS SUMMARY | 2025-04-19 09:13 | XMS_ITS | Clinical Summary ---
Author Organization [facility] Address [address] [place] [address] Phone Care Team Providers Care Fresh Foods Clerk Name Role Phone Colin Shi MD Primary Care Provider [phone] Encounters Date Type Department Care Team Description 02/25/[address] [facility] Main Lab [address] [facility] [place] [phone] Rachel Mayo NP Frequency of micturition from Last 3 Months Surgical History Surgery Date Site/Laterality Comments OTHER SURGICAL HISTORY PROCEDURE: [place] TOTAL ABDOMINAL HYSTERECT W/WO RMVL TUBE OVARY [...] tubular adenomas. UPPER GASTROINTESTINAL ENDOSCOPY 10/12/2020 PROCEDURE: [place] UPPER GI ENDOSCOPY PERFORMED; COMMENT: Visually normal, duodenal biopsies obtained: Normal. HYSTERECTOMY Medical History Medical History Date Comments Allergic rhinitis 12/06/2014 DX:Allergic rh initis Asthma 12/25/2010 DX:Asthma Bipolar disorder (CMS/HCC V2 4, CMS/HCC V28) 05/20/2017 DX:Bipolar disorder ([facility]) Cervical disc disorder with radiculopathy [...] of substance abuse ( [facility] V24, [facility] V28) 05/15/2012 DX:History of substance abus e ([facility]); COMMENT: opioids HTN (hypertension) 06/13/2010 DX:HTN (hyper tension) Hyperlipidemia 02/06/2018 DX:Hyperlipidemi a Lumbar spondylosis 11/20/2013 DX:Lumbar spo ndylosis Mitral prolapse 06/13/2010 DX:Mitral prolap se Mitral regurgitation 08/01/2009 DX:Mitral r egurgitation Mood disorder ([facility] V24) 04/16/2011 DX:M ood disorder ([facility]) Multilevel degenerative disc disease 07/29/2016 DX:Multilevel degenerative disc disease Osteoporosis 06/13/2010 DX:Osteoporosis Pain syndrome, chronic 01/17/2016 DX:Pain s yndrome, chronic Peripheral neuropathy 05/11/2014 DX:Periphe ral neuropathy Prediabetes 02/06/2018 DX:Prediabetes RA (rheumatoid arthritis) ([facility] V24, [facility] V28) 06/13/2010 DX:RA (rheumatoid arthritis) ([facility]) Scoliosis 02/13/2015 DX:Scoliosis Tubular adenoma of colon 01/08/2017 DX:Tubu lar adenoma of colon; COMMENT: Small sigmoid colon polyp at CN 07/12/2010. CN 10/02/2010: 7 mm tubular adenoma at 30 cm. Next colonoscopy indicated 2015. Urinary incontinence 12/25/2010 DX:Urinary incontinence Vitamin D deficiency 02/04/2018 DX:Vitamin D deficiency CKD (chronic kidney disease) stage 3, GFR 30-59 ml/min ([facility] V24, [facility] V28) 07/14/2018 DX:CKD (chronic kidney disea se) stage 3, GFR 30-59 ml/min ([facility]) Family History Medical History Relation [...] Urine No growth 02/26/2025 9:11 AM EDT [facility] Urine Urine specimen obtained by clean catch procedure / Unknown 02/25/2025 02/25/2025 11:28 AM EDT us Rachel Mayo [employer] LAB MICROBIOLOGY - GENERA L ORDERABLES Final Result [facility] [address] [place] [address], * MG Mammo Digital Screening w Chuck [...] for biopsy. PQRI CPT II 3342F Code 71863, 40912 PQRI 225 CPT II 7025F TISSUE DENSITY: There are scattered areas of fibroglandular density. (BI-RADS category B) IMPRESSION: Benign. BI-RADS CATEGORY: 2 - BENIGN RECOMMENDATION: Screening bilateral mammogram is recommended in 1 year. Mammo Location: [facility], [address] [place] [id number] -------- FINAL REPORT -------- Dictated By: Angeline Day Dictated Date: 11/25/2024 12:03 ET Assigned Physician: Angeline Day Reviewed and Electronically Signed By: Angeline Day Signed Date: 11/25/2024 12:08 ET Workstation ID: [id number] Transcribed By: Self Edit Transcribed Date: 11/25/2024 12:03 ET Narrative 11/25/2024 12:08 PM EDT CLINICAL: The patient is a 69 years Female presenting for routine screening mammography. COMPARISON: Most recently 04/09/2023 and most remotely 03/13/2018. TECHNIQUE: Full-field digital mammography of the breasts bilaterally consisting of tomosynthesis in MLO and CC projection is performed in the [employer] 2000-D unit. Computer aided detection utilizing the [...] MLO and CC projection is performed in theGiftologye 2000-D unit. Computer aided detection utilizing the [employer] was utilized. FINDINGS: The breasts are again [...] for biopsy. PQRI CPT II 3342F Code 43839, 32097 PQRI 225 CPT II 7025F TISSUE DENSITY: There are scattered areas of fibroglandular density.(BI-RADS category B) IMPRESSION: Benign. BI-RADS CATEGORY: 2 - BENIGN RECOMMENDATION: Screening bilateral mammogram is recommended in 1 year. Mammo Location: [facility], [facility], [address] [place] [id number] -------- FINAL REPORT -------- Dictated By: Angeline Day Dictated Date: 11/25/2024 12:03 ET Assigned Physician: Angeline Day Reviewed and Electronically Signed By: Angeline Day Signed Date: 11/25/2024 12:08 ET Workstation ID: [id number] Transcribed By: Self Edit Transcribed Date: 11/25/2024 12:03 ET us Self Referral Sppl IMG BI PROCEDURES Final Resul t * REJI DEXA AXIAL SKELETON (09/13/2021 12:06 PM EST) Anatomical Region Laterality Modality Mammography 09/13/2021 9:57 AM EST Narrative 09/13/2021 12:06 PM [facility] Diagnostic Imaging Department [address] [place], [place] [id number] Patient: KRISTAL POSADA Carolann RaglandB./Age/Sex: 1955 66 - F Unit#: [id number] [facility] Ordering Physician: EVELIA NELSON [employer] BAT[employer] BUILDER Reji Dexa Axial Skeleton - 09/13/211032 HISTORY: [...] probability of hip fracture of 4.3%. Code 04368 Dictating Physician: ANGELINE DAY MD Electronically Signed by: ANGELINE DAY MD Dic Date/Time: 09/13/21 1205 Sign date/Time: 09/13/21 1206 Procedure Note Angeline Day MD - 08/21/2022 [facility] Diagnostic Imaging Department [address] [place] [address] Patient: KRISTAL POSADA Carolann RaglandB./Age/Sex: 1955 - 66 - F Unit#: [id number] [facility] Ordering Physician: EVELIA NELSON [employer] BATTERY BUILDER Reji Dexa Axial Skeleton - 09/13/21 - [...] density of the femurs bilaterally is 0.858 gm/ha0uoqou is 85% of that of young normals [...] probability of hip fracture of 4.3%. Code 11388 Dictating Physician: ANGELINE DAY MD Electronically Signed by: ANGELINE DAY MD Dic Date/Time: 09/13/21 1205 Sign date/Time: 09/13/21 1206 Evelia Nelson [facility] IM BI PROCEDURES F inal Result from Last 3 Months or Most Recently Relevant to Health Maintenance Insurance MEDICARE Member Subscriber Plan / Payer (Ef fective 2022-Present) Name:KRISTAL POSADA Relation to Subscriber:Self Name:Kristal Posada Payer ID:[id number] Group ID:[id number] Type:Not on file Address: [address] [place] [id number] Care Teams Fresh Foods Clerk Relationship Specialty Start Date End Date Colin Shi MD [address] [place] [address] Dr Ken, [place]W [address] PCP - General Internal Medicine 02/04/22
== END 2025-04-19 09:05 | disposition home or self-care (01) ==
LOC: HO.RHES 08:29
PROVIDERS: PCP Family Medicine; Visit Provider Student in an Organized Health Care Education/Training Program
DX: M81.0 Age-related osteoporosis without current pathological fracture (principal)

== ENCOUNTER 2025-04-25 08:31 | Outpatient (AMB) | payer OTHER, SELFPAY ==
--- NOTE | 2025-04-25 08:45 | MHC.PC.OV ---
Vital Signs 04/25/25 09:01 Height 5 ft 2 in Weight 78.018 kg BMI 31.5 BP 110/68 Temp 98.9 F Temp Source Temporal Artery Scan Pulse Oximetry (%) 98 Oxygen Delivery Method Room Air Comment Wt per pt 3 months ago-wheelchair bound Intake Visit Reasons: 3 MO F/UP - ANA MARIA PT Sales And Service Change Leader Required: No Accompanied by: Self / Same As Patient Allergies morphine Allergy (Unknown, Verified 04/25/25 08:45) hallucinations Clindamycin HCl Allergy (Severe, Uncoded 04/25/25 08:45) diarrhea mustard Allergy (Unknown, Uncoded 04/25/25 08:45) Unknown sugar substitute Allergy (Unknown, Uncoded 04/25/25 08:45) Unknown Medication List - Last Reconciled 04/25/25 by MIGUEL Benavidez abatacept (Orencia ClickJect) 125 mg subcut QWEEK acetaminophen ER 650 mg PO Q8H PRN albuterol sulfate 90 mcg/actuation 2 puffs inhalation Q4H PRN aripiprazole (Abilify) 5 mg PO DAILY calcium carbonate-vitamin D3 600 mg-10 mcg (400 unit) tabs PO DAILY cholecalciferol (vitamin D3) 50 mcg PO DAILY denosumab (Prolia) 60 mg subcut [id number] diazepam 5 mg PO DAILY PRN diclofenac sodium 1% topical BID ferrous sulfate 325 mg PO DAILY fluticasone propionate 50 mcg/actuation sprays intranasal folic acid 1 mg PO DAILY ibuprofen 400 mg PO BID PRN loratadine 10 mg PO DAILY PRN methenamine hippurate 1 g PO DAILY methotrexate sodium 12.5 mg (5 x 2.5 mg) PO QWEEK metoprolol succinate ER 25 mg PO DAILY mirabegron ER (Myrbetriq) 50 mg PO DAILY rsazjxrc-plg-NU-lycopen-lutein 0.4 mg-300 mcg- 250 mcg (Centrum Silver) 1 tab PO DAILY pantoprazole 40 mg PO DAILY pravastatin 40 mg PO DAILY prazosin 5 mg PO BEDTIME prazosin 2 mg PO BEDTIME tramadol 50 mg PO DAILY PRN tramadol 50 mg PO DAILY venlafaxine ER 150 mg PO DAILY vibegron (Gemtesa) 75 mg PO DAILY Tobacco use date assessed: 04/25/25 Fall risk assessment: No Falls in past year Last assessed Fall Risk: 04/25/25 Dental Screening Dental Screen Date: 04/25/25 Did you have a dental visit in the last 12 months?: No Did you have a dental problem in the last 6 months where you did not have access to dental care?: No Was dental information given to patient?: No (False teeth) HPI HPI Comments History of Present Illness Details 69-year-old female with history of osteoporosis, iron deficiency anemia, hypertension, rheumatoid arthritis, overactive bladder, and Presents to the office today for management of chronic conditions and to establish care. Hypertension-on metoprolol. Blood pressure in the office today Rheumatoid arthritis/osteoporosis-following with Dr. Lezama. Stable on methotrexate and Orencia. Valium prn. No longer on tramadol. Wheelchair bound. on Prolia injections, managed by Dr. Lezama. Taking calcium and vitamin-D SONIA- on ferrous sulfate, no bleeding Depression/anxiety- on abilify, prazosin, venlafaxine. Follows with therapist and psychiatrist. Stable HLD- statin Hyponatremia- stable, last 132 Urge incontinence- gemtesa and myrbetriq. Follows with [facility] IBS- botox, valium Concerns: Chronic neck pain- has known hx of fracture. Valium. No longer on tramadol, would like to resume Health maintenance: Last screening mammogram 10/2024, 1 y Mammo- negative for malignancy, 1 year follow up Last DEXA scan 01/2024 Last colonoscopy 10/2020 with 5 year follow-up advised due to tubular adenoma. [facility] ROS: General: No fevers, malaise, unintentional weight loss HEENT: No blurred vision, diplopia. No sore throat, nasal congestion, rhinorrhea, sinus pain, ear pain Cardiovascular: No chest pain, palpitations, or leg edema Respiratory: No shortness of breath, wheezing, cough GI: No abdominal pain, nausea, vomiting, diarrhea, constipation, melena, hematochezia : No dysuria, hematuria, increased urinary frequency, decreased urinary output MSK: No myalgia, back pain Neuro: No headaches, weakness, paresthesias Skin: No rashes or lesions EXAM: Constitutional - Awake and Alert, No apparent distress Eyes - PERRL Cardiovascular - S1S2, RRR, No edema Respiratory - Normal lung expansion, Normal respiratory effort, No respiratory distress, CTA bilaterally Extremities - no calf tenderness bilaterally, no swelling Skin - Warm/Dry Neurological - Alert & oriented x3 Psychological - Appropriate affect [facility] Medical History (Updated 04/25/25 @ 09:20 by MIGUEL Benavidez) Hypertension HLD (hyperlipidemia) Encounter for monitoring denosumab therapy On abatacept therapy Cervical pain (neck) Other specified nutritional deficiencies Multiple fractures of cervical spine Iron deficiency anemia Primary osteoarthritis of hands, bilateral Lumbar spondylosis Osteoporosis Seropositive rheumatoid arthritis Surgical History (Updated 04/21/25 @ 16:27 by Lenore Whelan) History of colonoscopy (~10/12/20) History of total left knee replacement (TKR) Family History (Updated 01/26/25 @ 09:09 by YAMINI Case) Mother Cancer Brother Cancer Brother Cancer Social History (Updated 01/26/25 @ 09:10 by YAMINI Case) Household Members: None Housing: Apartment Alcohol intake: never Patient Tobacco Use Status: Former Tobacco user (Quite in 2015) Tobacco use type: Cigarette Cigarettes Per Day: 2 Years Smoked: 7 e-Cigarette/Vaping Use: Never Used service: No Current occupational status: disabled Cognitive needs: Yes (Power Wheelchair) Vision needs: Yes (Rx glasses) Questionnaire PHQ-9 Over the last 2 weeks, how often have you been bothered by any of the following problems? 1. Little interest or pleasure in doing things: nearly every day 2. Feeling down, depressed, or hopeless: not at all 3. Trouble falling or staying asleep, or sleeping too much: more than half the days 4. Feeling tired or having little energy: not at all 5. Poor appetite or overeating: not at all 6. Feeling bad about yourself - or that you are a failure or have let yourself or your family down: not at all 7. Trouble concentrating on things, such as reading the newspaper or watching television: not at all 8. Moving or speaking so slowly that other people could have noticed. Or the opposite - being so fidgety or restless that you have been moving around a lot more than usual: not at all 9. Thoughts that you would be better off or of hurting yourself in some way: not at all Total score: 5 Source: Developed by Drs. Fina Yates Kurt Kroenke and colleagues, with an educational santi from [employer]. Thrive Questionnaire Date Thrive assessed: 04/25/25 I am a: Patient What is your living situation today?: I have a steady place to live Within the past 12 months, did the food you bought not last and you didn't have the money to get more?: Never true Within the past 12 months, did you worry whether your food would run out before you got money to buy more?: Never true Do you have trouble paying for medicines?: No Do you have trouble getting transportation to medical appointments?: No Do you have trouble paying your heating and electricity bill?: No Do you have trouble taking care of your child, family member or friend?: No Do you have trouble with day-to-day activities such as bathing, preparing meals, shopping, managing finances, etc.?: No Are you currently unemployed and looking for a job?: No Are you interested in more education?: No Please select the resources that you would like help with: None THRIVE Score: 0 FALGUNI-7 AMB Questionnaire FALGUNI-7 Date FALGUNI - 7 assessed: 04/25/25 Feeling nervous, anxious, or on edge: 2 = More than half the days Not being able to stop or control worryin = Not at all Worrying too much about different things: 3 = Nearly every day Trouble relaxin = Not at all Being so restless that it is hard to sit still: 0 = Not at all Becoming easily annoyed or irritable: 0 = Not at all Feeling afraid as if something awful might happen: 0 = Not at all Total FALGUNI-7 score (0-4 normal; 5-9 mild; 10-14 moderate; 15-21 severe): 5 Source: Developed by Drs. Stefan Arredondo, Fina Gallardo, Jimmy Hodges and colleagues, with an educational santi from [employer]. Physical exam (Primary Care) Vital Signs: Last Vital Signs Temp 98.9 F 04/25/25 09:01 BP 110/68 04/25/25 09:01 Pulse Ox 98 04/25/25 09:01 Oxygen Delivery Method Room Air 04/25/25 09:01 BMI result Body Mass Index 31.5 Tobacco/Smoking Status: Tobacco use Status Tobacco use date assessed 04/25/25 04/25/25 09:00 Patient Tobacco Use Status Former Tobacco user (Quite 04/25/25 09:00 in 2014) Tobacco use type Cigarette 04/25/25 08:46 e-Cigarette/Vaping Use Never Used 04/25/25 08:46 Coding Level of Care Code New Pt Level 4 (49069) Complex EM visit Add On G2211 Diagnoses Seropositive rheumatoid arthritis M05.9 Osteoporosis without current pathological fracture, unspecified osteoporosis type M81.0 Osteoporosis type: unspecified Presence of current pathological fracture: without current pathological fracture HLD (hyperlipidemia) E78.5 Hypertension I10 Assessment & Plan Assessment & Plan (1) Seropositive rheumatoid arthritis: Comment: Disease onset in the . Rheumatoid factor and CCP antibody positive. Previous trials with methotrexate, Enbrel, Humira, Kevzara, Xeljanz, Simponi, sulfasalazine, Actemra- mostly ineffective. Some nausea with methotrexate at high doses. Orencia since 2019 with modest response Code(s): M05.9 - Rheumatoid arthritis with rheumatoid factor, unspecified Category: Medical Plan: Stable. Continue following with Rheumatology. Continue methotrexate and Orencia. Given refill for tramadol. Mass pat reviewed (2) Osteoporosis: Comment: Initially on alendronate -2020 stopped due to decline in eGFR. Prolia started 2019 DEXA 01/2024: Left femur neck -1.2, Left femur total -0.9, AP spine 0.6 Code(s): M81.0 - Age-related osteoporosis without current pathological fracture Category: Medical Qualifiers: Osteoporosis type: unspecified Presence of current pathological fracture: without current pathological fracture Qualified Code(s): M81.0 - Age-related osteoporosis without current pathological fracture Plan: Continue Prolia injections. DEXA scan up-to-date. Calcium and vitamin-D advised (3) HLD (hyperlipidemia): Code(s): E78.5 - Hyperlipidemia, unspecified Category: Medical Plan: Lipid panel ordered. Continue pravastatin (4) Hypertension: Code(s): I10 - Essential (primary) hypertension Category: Medical Plan: Controlled. Continue metoprolol Plan Follow-up in the office in 4 months, labs to be completed prior to visit. Orders: Orders Lipid Panel 4 Months E78.5 - Hyperlipidemia, unspecified IRON PROFILE 4 Months D50.9 - Iron deficiency anemia, unspecified Medications: New tramadol 50 mg PO DAILY 30 tabs 0RF
[2025-04-25 09:01] VITALS: BP 110/68; TEMP 37.2; O2SAT 98; BMI 31.5
== END 2025-04-25 09:20 | disposition home or self-care (01) ==
LOC: HO.HMCHD 08:32
PROVIDERS: PCP Family Medicine; Visit Provider Physician Assistant
DX: M05.9 Rheumatoid arthritis with rheumatoid factor, unspecified (principal); M81.0 Age-related osteoporosis without current pathological fracture; E78.5 Hyperlipidemia, unspecified; I10 Essential (primary) hypertension

== ENCOUNTER → 2025-04-25 08:31 | Outpatient (BNVA) | payer OTHER, SELFPAY | PROVIDERS: PCP Family Medicine; Visit Provider Physician Assistant | DX: M05.9 Rheumatoid arthritis with rheumatoid factor, unspecified (principal); M81.0 Age-related osteoporosis without current pathological fracture; E78.5 Hyperlipidemia, unspecified; I10 Essential (primary) hypertension; Z79.631 Long term (current) use of antimetabolite agent; Z79.899 Other long term (current) drug therapy; Z13.30 Encounter for screening examination for mental health and behavioral disorders, unspecified; Z13.39 Encounter for screening examination for other mental health and behavioral disorders | CPT/HCPCS: 96127; 99202 ==

== ENCOUNTER 2025-05-26 08:06 | Outpatient (AMB) | payer OTHER, SELFPAY ==
--- NOTE | 2025-05-26 08:58 | A.OFFVIS_ITS ---
Vital Signs 05/26/25 09:07 Height 5 ft 2 in BMI Reason not done Patient refused/unable BP 115/60 Blood Pressure Location Rt brachial Position Sitting Pulse 86 Pulse Source Pulse Oximeter Pulse Oximetry (%) 97 Oxygen Delivery Method Room Air Intake Visit Reasons: RA follow up Intake Note: Patient presents for RA follow up. Allergies morphine Allergy (Unknown, Verified 05/26/25 09:06) hallucinations Clindamycin HCl Allergy (Severe, Uncoded 04/25/25 08:45) diarrhea mustard Allergy (Unknown, Uncoded 04/25/25 08:45) Unknown sugar substitute Allergy (Unknown, Uncoded 04/25/25 08:45) Unknown Medication List - Last Reconciled 05/26/25 by Bhumika Lezama MD abatacept (Orencia ClickJect) 125 mg subcut QWEEK acetaminophen ER 650 mg PO Q8H PRN albuterol sulfate 90 mcg/actuation 2 puffs inhalation Q4H PRN aripiprazole (Abilify) 5 mg PO DAILY calcium carbonate-vitamin D3 600 mg-10 mcg (400 unit) tabs PO DAILY cholecalciferol (vitamin D3) 50 mcg PO DAILY denosumab (Prolia) 60 mg subcut [id number] diazepam 5 mg PO DAILY PRN diclofenac sodium 1% topical BID ferrous sulfate 325 mg PO DAILY fluticasone propionate 50 mcg/actuation sprays intranasal folic acid 1 mg PO DAILY ibuprofen 400 mg PO BID PRN loratadine 10 mg PO DAILY PRN methenamine hippurate 1 g PO DAILY methotrexate sodium 12.5 mg (5 x 2.5 mg) PO QWEEK metoprolol succinate ER 25 mg PO DAILY mirabegron ER (Myrbetriq) 50 mg PO DAILY qdpxvfql-gvt-WI-lycopen-lutein 0.4 mg-300 mcg- 250 mcg (Centrum Silver) 1 tab PO DAILY pantoprazole 40 mg PO DAILY 90 days pravastatin 40 mg PO DAILY prazosin 5 mg PO BEDTIME prazosin 2 mg PO BEDTIME 30 days tramadol 50 mg PO DAILY venlafaxine ER 150 mg PO DAILY vibegron (Gemtesa) 75 mg PO DAILY HPI Comments Details: Patient is a 69-year-old female with hyperlipidemia, polyarticular osteoarthritis, osteoporosis and seropositive rheumatoid arthritis here today for follow up Interval History: Patient last seen 01/26/25 with me - On Orencia 125 mg SC every week, methotrexate 12.5 mg weekly PO, folic acid 1 mg daily - Patient complaining of pain all over but notes improvement after steroids - Taking Orencia for 1 month now and restarted methotrexate - Complains of left ankle swelling at the end of the day, requiring her to put up her foot - Left PIP pain and bilateral elbow pain - Patient examined and found to be in remission no changes made to medication - Pain attributed to her polyarticular osteoarthritis Today - On Orencia 125 mg SC every week, methotrexate 12.5 mg weekly PO, folic acid 1 mg daily - Is in increased pain, has not had Orencia for the past 2 months - Unable to get in touch with the pharmacy Rheumatologic History: Seropositive rheumatoid arthritis Disease onset in the . Rheumatoid factor and CCP antibody positive. Previous trials with methotrexate, Enbrel, Humira, Kevzara, Xeljanz, Simponi, sulfasalazine, Actemra- mostly ineffective. Some nausea with methotrexate at high doses. Orencia since 2019 with modest response Current Rheumatology Medication(s): Orencia 125 mg SC every week Methotrexate 5 tablets (12.5 mg) weekly Folic acid 1 tablets daily [facility] Medical History (Updated 04/25/25 @ 09:20 by MIGUEL Benavidez) Hypertension HLD (hyperlipidemia) Encounter for monitoring denosumab therapy On abatacept therapy Cervical pain (neck) Other specified nutritional deficiencies Multiple fractures of cervical spine Iron deficiency anemia Primary osteoarthritis of hands, bilateral Lumbar spondylosis Osteoporosis Seropositive rheumatoid arthritis Surgical History History of colonoscopy (~10/12/20) History of total left knee replacement (TKR) Family History Mother Cancer Brother Cancer Brother Cancer Social History Household Members: None Housing: Apartment Alcohol intake: never Patient Tobacco Use Status: Former Tobacco user (Quite in 2015) Tobacco use type: Cigarette Cigarettes Per Day: 2 Years Smoked: 7 e-Cigarette/Vaping Use: Never Used service: No Current occupational status: disabled Cognitive needs: Yes (Power Wheelchair) Vision needs: Yes (Rx glasses) Review of Systems Const Details: Review of Systems Constitutional: Denies fever, chills, weight loss ENT: Denies vision changes, eye pain or eye redness, dental caries, dry mouth GI: Denies nausea, vomiting, diarrhea, abdominal pain, change in BM Pulm: Denies SOB, NAIDU, hemoptysis, wheezing Cards: Denies chest pain, palpitations Skin: Denies Raynaud's, rash, nail changes, photosensitivity, MANAGER CARE MANAGEMENT: Denies headaches, weakness, paresthesias, recurrent falls MSK: as per HPI All other systems reviewed and are unremarkable except noted above Physical Exam Exam Exam: Vital signs reviewed Physical Examination CONSTITUITIONAL Patient alert and cooperative. Well appearing and in no apparent painful distress Examined in wheel chair MSK Hands * Right Hand: Able to make a fist. No swelling. But Tenderness to palpation of the MCPs, PIPs or DIPs. Prominent Herbedens and Bouchards nodes. Synovial hypertrophy of the MCPs 2-5. Ulnar deviation at the MCPs * Left Hand: Able to make a fist. But Tenderness to palpation of the MCPs, PIPs or DIPs. Prominent Herbedens and Bouchards nodes. Synovial hypertrophy of the MCPs 2-5. Ulnar deviation at the MCPs Wrists * Right Wrist: Full ROM to flexion and extension. No swelling. Mild TTP * Left Wrist: Full ROM to flexion and extension. No swelling. Mild TTP Elbows * Right Elbow: Full ROM. No swelling or TTP. No TTP of the medial epicondyle. No TTP of the lateral epicondyle * Left Elbow: Full ROM. No swelling or TTP. No TTP of the medial epicondyle. No TTP of the lateral epicondyle Shoulders * Right shoulder: Decreased ROM. No swelling noted. No TTP of the AC joint. No TTP of the subacromial bursa. No TTP of the posterior shoulder * Left shoulder: Decreased ROM. No swelling noted. No TTP of the AC joint. No TTP of the subacromial bursa. No TTP of the posterior shoulder Knees * Right knee: Full ROM. No swelling noted. No TTP of the knee joint line. No TTP of pes anserine bursa. Crepitations felt * Left knee: Full ROM. No swelling noted. No TTP of the knee joint line. No TTP of pes anserine bursa. Ankles * Right ankle: Good ankle dorsiflexion and plantar flexion. No swelling. No TTP of the ankle joint * Left ankle: Good ankle dorsiflexion and plantar flexion. No swelling. No TTP of the ankle joint Feet * Right foot: Negative squeeze test * Left foot: Negative squeeze test Tender points? * No tenderness to palpation of the bilateral trapezius, supraspinatus, anterior costochondral junctions, bilateral suboccipital muscle insertions SKIN No rashes Vital Signs: Last Vital Signs Pulse 86 05/26/25 09:07 BP 115/60 05/26/25 09:07 Pulse Ox 97 05/26/25 09:07 Oxygen Delivery Method Room Air 05/26/25 09:07 Results Reviewed Results Reviewed: Laboratory Tests 10/15/24 01/12/25 04/15/25 09:44 12:07 08:46 WBC 6.1 RBC 3.69 L Hgb 10.2 L Hct 32.4 L Plt Count 289 D ESR 30 H Sodium 132 L Potassium 4.1 Chloride 96 Carbon Dioxide 26 BUN 6 L Creatinine 0.96 AST 27 ALT 17 C-Reactive Protein 0.19 25-OH Vitamin D Total 45 73.9 Laboratory Tests 09/17/24 10:56 Hepatitis A IgM Ab Nonreactive Hep Bs Antigen Negative Hep Bs Antibody NONREACTIVE Hep B Core Total Ab Nonreactive Hepatitis C Ab (EIA) Nonreactive TB Test (T-Spot) Com Negative DEXA 01/2024 FINDINGS: LEFT FEMUR, NECK: Current: BMD 0.869 g/cm2, Z-score 0.0, T-score -1.2, osteopenia. Baseline: BMD 0.811 g/cm2. LEFT FEMUR, TOTAL: Current: BMD 0.893 g/cm2, Z-score 0.1, T-score -0.9, normal, 10.2% increase from baseline (<5% change is not significant). Baseline: BMD 0.810 g/cm2. AP SPINE L1-L4: Current: BMD 1.258 g/cm2, Z-score 1.8, T-score 0.6, normal, 18.1% increase from baseline (<5% change is not significant). Baseline: BMD 1.065 g/cm2. Assessment & Plan Assessment & Plan (1) Seropositive rheumatoid arthritis: Comment: Disease onset in the . Rheumatoid factor and CCP antibody positive. Previous trials with methotrexate, Enbrel, Humira, Kevzara, Xeljanz, Simponi, sulfasalazine, Actemra- mostly ineffective. Some nausea with methotrexate at high doses. Orencia since 2019 with modest response Code(s): M05.9 - Rheumatoid arthritis with rheumatoid factor, unspecified Category: Medical Plan: #Seropositive erosive RA Patient is a 69-year-old female with seropositive erosive deforming rheumatoid arthritis. Currently in a flare of her disease on a background of not being on Orencia for 2 months due to pharmacy issues Will give a course of prednisone to cover the flare Number for pharmacy given to patient and she is to call the office if she continues to have any issues Plan - Orencia 125mg SC weekly - Methotrexate 12.5mg weekly - Folic acid 1 mg daily - Prednisone Take 15mg for 7 days then 10mg for 7 days then 5mg for 7 days then stop - RTC 4 months - Labs before visit: CBC, CMP, ESR, CRP, Hepatitis panel and T spot (2) Generalized osteoarthritis: Code(s): M15.9 - Polyosteoarthritis, unspecified Category: Medical Plan: #Polyarticular OA Patient with polyarticular OA with significant disease affecting her hands as evidenced by Herbeden's and Bouchards nodes involving the hands. Plan - Topical diclofenac 1% qid - Tramadol 50mg daily prn - Encourage swimming and stretches (3) Osteoporosis: Comment: Initially on alendronate -2019 stopped due to decline in eGFR. Prolia started 2019 DEXA 01/2024: Left femur neck -1.2, Left femur total -0.9, AP spine 0.6 Code(s): M81.0 - Age-related osteoporosis without current pathological fracture Category: Medical Qualifiers: Osteoporosis type: unspecified Presence of current pathological fracture: without current pathological fracture Qualified Code(s): M81.0 - Age- related osteoporosis without current pathological fracture Plan: #Osteoporosis Patient with osteoporosis, on denosumab every 6 months. Most recent DEXA 01/2024 shows overall improvement in her bone density. Plan - Prolia 60mg SC every 6 months (4) On abatacept therapy: Code(s): Z79.899 - Other joint terminal attack controller (current) drug therapy Category: Medical Plan: #Long-term Use of Abatacept Discussed with the patient the benefits and risks of Abatacept for the management of the rheumatic condition Benefits include reduce pain, maintenance of remission and reduction of flares as well as ?progression of the disease Risks include injection sites/infusion reactions, serious infections (such as bacterial infections, opportunistic infections), malignancy Recommended rotating injection sites, and holding medication during and for up to 1 week after resolution of a febrile illness or open skin wound (5) Encounter for monitoring denosumab therapy: Code(s): Z51.81 - Encounter for therapeutic drug level monitoring; Z79.620 - penitentiary (current) use of immunosuppressive biologic Category: Medical Plan: #Long-term use of Denosumab Discussed with patient the risks and benefits of denosumab (Prolia) for the management of their osteoporosis Benefits include improved bone density, decreased fracture risk Risks include rapid bone loss if denosumab stopped, osteonecrosis of the jaw especially in patients with poor oral hygiene/diabetes/use of glucocorticoids/age greater than 65 years, atypical femoral fractures, injection site reactions. Mild increased risk of infections due to RANKL on T helper cells, increased risk of hypocalcemia especially in CKD patients Keep vitamin-D at least 35 ng/mL Advised to delay non emergent dental procedures to toward the end of the 6 month cycle and if they plan to stop denosumab would need to continue antiresorptive to maintain the effects of denosumabe (6) Encounter for methotrexate monitoring: Code(s): Z51.81 - Encounter for therapeutic drug level monitoring; Z79.631 - penitentiary (current) use of antimetabolite agent Plan: #Long-term Current Use of Methotrexate Discussed with patient the benefits and risks of methotrexate for managing their rheumatic condition Benefits include reduced pain, reduced mortality, maintenance of remission and reduction of flares Risks include oral ulcers, photosensitivity, hepatotoxicity, hematologic toxicity, pneumonitis, flu-like symptoms (especially day after administration), nodulosis, lymphomas ? Limit alcohol and avoid Bactrim ? Monitoring: ?CBC, BMP, LFTs every 3-4 months and hepatitis serologies as needed Plan I spent 30 minutes reviewing the record and labs, taking a history, examining the patient, discussing the treatment plan and documenting in the medical record Medications: New prednisone Take 3 tablets daily for 7 days then 2 tablets daily for 7 days then 1 tablet daily for 7 days then stop 5 mg PO DIRECTED 42 tabs 0RF M06.9 - Rheumatoid arthritis, unspecified Refilled methotrexate sodium 12.5 mg (5 x 2.5 mg) PO QWEEK 60 tabs 1RF M05.9 - Rheumatoid arthritis with rheumatoid factor, unspecified abatacept (Orencia ClickJect) 125 mg subcut QWEEK 4 mL 5RF M05.9 - Rheumatoid arthritis with rheumatoid factor, unspecified folic acid 1 mg PO DAILY 90 tabs 1RF M05.9 - Rheumatoid arthritis with rheumatoid factor, unspecified Coding Level of Care Code Est Pt Level 4 (87471) Complex EM visit Add On G2211 Diagnoses Seropositive rheumatoid arthritis M05.9 Generalized osteoarthritis M15.9 Osteoporosis without current pathological fracture, unspecified osteoporosis type M81.0 Osteoporosis type: unspecified Presence of current pathological fracture: without current pathological fracture On abatacept therapy Z79.899 Encounter for monitoring denosumab therapy Z51.81; Z79.620 Encounter for methotrexate monitoring Z51.81; Z79.631
[2025-05-26 09:07] VITALS: BP 115/60; PULSE 86; O2SAT 97
== END 2025-05-26 09:43 | disposition home or self-care (01) ==
LOC: HO.RHES 08:07
PROVIDERS: PCP Physician Assistant; Visit Provider Student in an Organized Health Care Education/Training Program
DX: M05.9 Rheumatoid arthritis with rheumatoid factor, unspecified (principal); M15.9 Polyosteoarthritis, unspecified; M81.0 Age-related osteoporosis without current pathological fracture; Z79.899 Other long term (current) drug therapy; Z51.81 Encounter for therapeutic drug level monitoring; Z79.620 Long term (current) use of immunosuppressive biologic; Z79.631 Long term (current) use of antimetabolite agent
CPT/HCPCS: 99214; G2211

== ENCOUNTER → 2025-05-26 08:06 | Outpatient (BNVA) | payer OTHER, SELFPAY | PROVIDERS: PCP Physician Assistant; Visit Provider Student in an Organized Health Care Education/Training Program | DX: M05.79 Rheumatoid arthritis with rheumatoid factor of multiple sites without organ or systems involvement (principal); M15.9 Polyosteoarthritis, unspecified; M81.0 Age-related osteoporosis without current pathological fracture; Z79.899 Other long term (current) drug therapy; Z51.81 Encounter for therapeutic drug level monitoring; Z79.620 Long term (current) use of immunosuppressive biologic | CPT/HCPCS: 99212 ==

== ENCOUNTER 2025-07-04 08:46 | Outpatient (AMB) | payer OTHER, SELFPAY ==
--- NOTE | 2025-07-04 08:17 | MHC.PC.OV ---
Vital Signs 07/04/25 08:59 Height 5 ft 2 in Weight 78.018 kg BMI 31.5 BP 124/66 Blood Pressure Location Rt brachial Position Sitting Respiration 20 Pulse 88 Pulse Source Pulse Oximeter Temp 98.6 F Temp Source Temporal Artery Scan Pulse Oximetry (%) 97 Oxygen Delivery Method Room Air Intake Visit Reasons: Fungus on left great toe Polysomnograph Tech Required: No Accompanied by: Self / Same As Patient Allergies morphine Allergy (Unknown, Verified 07/04/25 08:17) hallucinations Clindamycin HCl Allergy (Severe, Uncoded 04/25/25 08:45) diarrhea mustard Allergy (Unknown, Uncoded 04/25/25 08:45) Unknown sugar substitute Allergy (Unknown, Uncoded 04/25/25 08:45) Unknown Tobacco use date assessed: 04/25/25 Dental Screening Dental Screen Date: 04/25/25 HPI HPI Comments History of Present Illness Details 69-year-old female with history of osteoporosis, iron deficiency anemia, hypertension, rheumatoid arthritis, overactive bladder, andPresents to the office today for evaluation Hypertension-on metoprolol. Blood pressure in the office today Rheumatoid arthritis/osteoporosis-following with Dr. Lezama. Stable on methotrexate and Orencia. Valium prn. No longer on tramadol. Wheelchair bound. on Prolia injections, managed by Dr. Lezama. Taking calcium and vitamin-D. Reports polyarthralgia. She is wheelchair-bound SONIA- on ferrous sulfate, no bleeding Depression/anxiety- on abilify, prazosin, venlafaxine. Follows with therapist and psychiatrist. Stable HLD- statin Hyponatremia- stable, last 132, likely iatrogenic from Gemtesa and Myrbetriq Urge incontinence- gemtesa and myrbetriq. Follows with [facility] IBS- botox, valium. Following with [facility] Concerns: Overgrown, yellowed toenails-no wool grower, has not had toenails cut Health maintenance: Last screening mammogram 10/2024, 1 y Mammo- negative for malignancy, 1 year follow up Last DEXA scan 01/2024 Last colonoscopy 10/2020 with 5 year follow-up advised due to tubular adenoma. [facility] ROS: see hpi EXAM: Constitutional - Awake and Alert, No apparent distress Eyes - PERRL Cardiovascular - S1S2, RRR, No edema Respiratory - Normal lung expansion, Normal respiratory effort, No respiratory distress, CTA bilaterally Extremities - no calf tenderness bilaterally, no swelling Skin - Warm/Dry. Yellowed hypertrophic, hyperkeratotic toenails Neurological - Alert & oriented x3 Psychological - Appropriate affect [facility] Medical History (Updated 07/04/25 @ 12:19 by MIGUEL Benavidez) Hyponatremia Hypertension HLD (hyperlipidemia) Encounter for monitoring denosumab therapy On abatacept therapy Cervical pain (neck) Other specified nutritional deficiencies Multiple fractures of cervical spine Iron deficiency anemia Primary osteoarthritis of hands, bilateral Lumbar spondylosis Osteoporosis Seropositive rheumatoid arthritis Surgical History History of colonoscopy (~10/12/20) History of total left knee replacement (TKR) Family History Mother Cancer Brother Cancer Brother Cancer Social History Household Members: None Housing: Apartment Alcohol intake: never Patient Tobacco Use Status: Former Tobacco user (Quite in 2015) Tobacco use type: Cigarette Cigarettes Per Day: 2 Years Smoked: 7 Packs per year/per ci.70 e-Cigarette/Vaping Use: Never Used service: No Current occupational status: disabled Cognitive needs: Yes (Power Wheelchair) Vision needs: Yes (Rx glasses) Questionnaire Thrive Questionnaire Date Thrive assessed: 04/25/25 FALGUNI-7 AMB Questionnaire FALGUNI-7 Date FALGUNI - 7 assessed: 04/25/25 Source: Developed by Drs. Stefan Arredondo, Fina Gallardo, Jimmy Hodges and colleagues, with an educational santi from [employer]. Physical exam (Primary Care) Vital Signs: Last Vital Signs Temp 98.6 F 07/04/25 08:59 Pulse 88 07/04/25 08:59 Resp 20 07/04/25 08:59 BP 124/66 07/04/25 08:59 Pulse Ox 97 07/04/25 08:59 Oxygen Delivery Method Room Air 07/04/25 08:59 BMI result Body Mass Index 31.5 Tobacco/Smoking Status: Tobacco use Status Tobacco use date assessed 04/25/25 07/04/25 08:18 Patient Tobacco Use Status Former Tobacco user (Quite 07/04/25 08:18 in 2014) Tobacco use type Cigarette 07/04/25 08:18 e-Cigarette/Vaping Use Never Used 07/04/25 08:18 Thrive Assessment: Date of Thrive Assessment Date Thrive assessed 04/25/25 07/04/25 08:18 Coding Level of Care Code Est Pt Level 4 (36021) Complex EM visit Add On G2211 Diagnoses Onychomycosis B35.1 Seropositive rheumatoid arthritis M05.9 Hypertension I10 Hyponatremia E87.1 Assessment & Plan Assessment & Plan (1) Onychomycosis: Code(s): B35.1 - Tinea unguium Category: Medical Plan: Prescribed ciclopirox, however given severity of fungal infection with hyper keratosis and hypertrophic nails, recommend podiatry and also recommending evaluation of hammertoes and crossover toes. (2) Seropositive rheumatoid arthritis: Comment: Disease onset in the 1990s. Rheumatoid factor and CCP antibody positive. Previous trials with methotrexate, Enbrel, Humira, Kevzara, Xeljanz, Simponi, sulfasalazine, Actemra- mostly ineffective. Some nausea with methotrexate at high doses. Orencia since 2019 with modest response Code(s): M05.9 - Rheumatoid arthritis with rheumatoid factor, unspecified Category: Medical Plan: Uncontrolled at this time. Continue methotrexate and also advised to reach out to marketing reporting analyst. Stop ibuprofen and take meloxicam instead (3) Hypertension: Code(s): I10 - Essential (primary) hypertension Category: Medical Plan: Controlled. Continue monitoring (4) Hyponatremia: Code(s): E87.1 - Hypo-osmolality and hyponatremia Category: Medical Plan: Likely iatrogenic, stable. Continue current therapies given mild hyponatremia, will continue monitoring. Plan Recheck renal function electrolytes in 2 weeks. Follow-up in the office as scheduled next month. Orders: Orders Basic Metabolic Panel 2 Weeks I10 - Essential (primary) hypertension Referrals Podiatry Referral B35.1 - Tinea unguium, L60.8 - Other nail disorders, M20.41 - Other hammer toe(s) (acquired), right foot, M20.42 - Other hammer toe(s) (acquired), left foot, M20.5X9 - Other deformities of toe(s) (acquired), unspecified foot Medications: New meloxicam 7.5 mg PO DAILY 90 tabs 0RF ciclopirox 8% Apply solution nightly to the L toenails. Every 7th day remove surinamese with alcohol pad and repeat; 6.6 mL 9RF onychomycosis 10 months
[2025-07-04 08:59] VITALS: BP 124/66; PULSE 88; RESP 20; TEMP 37; O2SAT 97; BMI 31.5
--- OUTSIDE RECORDS SUMMARY | 2025-07-04 09:19 | XMS_ITS | Encounter Summary ---
Author Organization [facility] Address [address] [place] [address] Care Team Providers Care Graduate Teaching Assistant Name Role Phone Colin Shi MD Primary Care Provider [phone] Encounter Details Date Type Department Care Team (Late st Contact Info) Description 02/25/2025 Lab Requisition [facility] - Main Lab [address] [facility] [place] [id number] Rachel Mayo NP [address] [facility] [address] [place] [address] Frequency of micturition Social History Tobacco Use Types Packs/Day Years [...] not to disclose 2024 10:01 AM EST documented as of this encounter Plan of Treatment Not on file documented as of this encounter Procedures Procedure Name Priority Date/Time Associated Diagnosis Comments CULTURE URINE Routine 02/25/2025 12:00 AM EDT Frequency of micturition documented in this encounter Results * Culture urine (02/25/2025 12:00 AM EDT) Culture, Urine No growth 02/26/2025 9:11 AM EDT [facility] Urine Urine specimen obtained by clean catch procedure / Unknown 02/25/2025 02/25/2025 11:28 AM EDT us Rachel Mayo PROCUREMENT TECHNICIAN LAB MICROBIOLOGY - GENERA L ORDERABLES Final Result [facility] [address] [place] [address], documented in this encounter Visit Diagnoses Diagnosis Frequency of micturition Urinary frequency documented in this encounter Care Teams Graduate Teaching Assistant Relationship Specialty Start Date End Date Colin Shi MD [address] [place] [address] [place] [address] PCP - General Internal Medicine 02/04/22 documented as of this encounter
--- OUTSIDE RECORDS SUMMARY | 2025-07-04 09:19 | XMS_ITS | Clinical Summary ---
Author Organization [facility] Address [address] [place] [address] Phone Care Team Providers Care Intercell Connector Placer Name Role Phone Colin Shi MD Primary Care Provider Surgical History Surgery Date Site/Laterality Comments OTHER SURGICAL HISTORY PROCEDURE: CA TOTAL ABDOMINAL HYSTERECT W/WO RMVL TUBE OVARY [...] tubular adenomas. UPPER GASTROINTESTINAL ENDOSCOPY 10/12/2020 PROCEDURE: CA UPPER GI ENDOSCOPY PERFORMED; COMMENT: Visually normal, duodenal biopsies obtained: Normal. HYSTERECTOMY Medical History Medical History Date Comments Allergic rhinitis 12/06/2014 DX:Allergic rh initis Asthma 12/25/2010 DX:Asthma Bipolar disorder ([facility] V2 4, [facility] V28) 05/20/2017 DX:Bipolar disorder ([facility]) Cervical disc disorder with radiculopathy [...] knee replacement History of substance abuse ( [facility] [place], [facility] V28) 05/15/2012 DX:History of substance abus e ([facility]); COMMENT: opioids HTN (hypertension) 06/13/2010 DX:HTN (hyper tension) Hyperlipidemia 02/06/2018 DX:Hyperlipidemi a Lumbar spondylosis 11/20/2013 DX:Lumbar spo ndylosis Mitral prolapse 06/13/2010 DX:Mitral prolap se Mitral regurgitation 08/01/2009 DX:Mitral r egurgitation Mood disorder ([facility] [place]24) 04/16/2011 DX:M ood disorder ([facility]) Multilevel degenerative disc disease 07/29/2016 DX:Multilevel degenerative disc disease Osteoporosis 06/13/2010 DX:Osteoporosis Pain syndrome, chronic 01/17/2016 DX:Pain s yndrome, chronic Peripheral neuropathy 05/11/2014 DX:Periphe ral neuropathy Prediabetes 02/06/2018 DX:Prediabetes RA (rheumatoid arthritis) ([facility] V24, [facility] V28) 06/13/2010 DX:RA (rheumatoid arthritis) ([facility]) Scoliosis 02/13/2015 DX:Scoliosis Tubular adenoma of colon 01/08/2017 DX:Tubu lar adenoma of colon; COMMENT: Small sigmoid colon polyp at CN 07/12/2010. CN 10/02/2010: 7 mm tubular adenoma at 30 cm. Next colonoscopy indicated 2015. Urinary incontinence 12/25/2010 DX:Urinary incontinence Vitamin D deficiency 02/04/2018 DX:Vitamin D deficiency CKD (chronic kidney disease) stage 3, GFR 30-59 ml/min ([facility] V24, [facility] V28) 07/14/2018 DX:CKD (chronic kidney disea se) stage 3, GFR 30-59 ml/min ([facility]) Family History Medical History Relation [...] Health Maintenance Due Date Last Done Comments Colorectal Cancer Screening: Colonoscopy 1955 Pneumococcal Vaccine: 50+ Years (3 of 3 - PCV20 or PCV21) 05/20/2021 05/20/2016, 04/25/2012, 06/13/2010 Cholesterol Screening (Lipid Panel) 08/10/2022 Falls Risk Assessment 08/10/2022 Hepatitis C Screening 08/10/2022 Medicare Annual Wellness Visit 08/10/2022 Social Influencers of Health Screening 08/10/2022 Hypertension/CHF/CAD Annual BMP Blood Test 10/03/2023 Depression Screening 09/01/2024 COVID-19 Vaccine ( season) 2025 05/12/2024, 06/02/2023, 07/22/2022, Additional history exists Influenza [...] Encounter for screening mammogram for breast cancer [facility] DEXA AXIAL SKELETON Routine 09/13/2021 12:06 [...] for biopsy. PQRI CPT II 3342F Code 33359, 22044 PQRI 225 CPT II 7025F TISSUE DENSITY: There are scattered areas of fibroglandular density. (BI-RADS category B) IMPRESSION: Benign. BI-RADS CATEGORY: 2 - BENIGN RECOMMENDATION: Screening bilateral mammogram is recommended in 1 year. Mammo Location: [facility], [address] [place] [address] -------- FINAL REPORT -------- Dictated By: Angeline Day Dictated Date: 11/25/2024 12:03 ET Assigned Physician: Angeline Day Reviewed and Electronically Signed By: Angeline Day Signed Date: 11/25/2024 12:08 ET Workstation ID: [id number] Transcribed By: Self Edit Transcribed Date: 11/25/2024 12:03 ET Narrative 11/25/2024 12:08 PM EDT CLINICAL: The patient is a 69 years Female presenting for routine screening mammography. COMPARISON: Most recently 04/09/2023 and most remotely 03/13/2018. TECHNIQUE: Full-field digital mammography of the breasts bilaterally consisting of tomosynthesis in MLO and CC projection is performed in the Abacaste 2000-D unit. Computer aided detection utilizing the [...] MLO and CC projection is performed in theEyebrid Blazeographe 2000-D unit. Computer aided detection utilizing the [...] for biopsy. PQRI CPT II 3342F Code 43926, 28180 PQRI 225 CPT II 7025F TISSUE DENSITY: There are scattered areas of fibroglandular density.(BI-RADS category B) IMPRESSION: Benign. BI-RADS CATEGORY: 2 - BENIGN RECOMMENDATION: Screening bilateral mammogram is recommended in 1 year. Mammo Location: [facility], [address] [place] [address] -------- FINAL REPORT -------- Dictated By: Angeline Day Dictated Date: 11/25/2024 12:03 ET Assigned Physician: Angeline Day Reviewed and Electronically Signed By: Angeline Day Signed Date: 11/25/2024 12:08 ET Workstation ID: [id number] Transcribed By: Self Edit Transcribed Date: 11/25/2024 12:03 ET us Self Referral Sppl IMG BI PROCEDURES Final Resul t * REJI DEXA AXIAL SKELETON (09/13/2021 12:06 PM EST) Anatomical Region Laterality Modality Mammography 09/13/2021 9:57 AM EST Narrative 09/13/2021 12:06 PM EST [facility] Diagnostic Imaging Department [address] [place] [address] Patient: KRISTAL POSADA Carolann /Age/Sex: 1955 - 66 - F Unit#: [id number] Location/Status: SPDIMAM/REG CLI [facility] Ordering Physician: EVELIA NELSON LAUNDRY EQUIPMENT OPERATOR Reji Dexa Axial Skeleton - 09/13/21 - [...] probability of hip fracture of 4.3%. Code 12094 Dictating Physician: ANGELINE DAY MD Electronically Signed by: ANGELINE DAY MD Dic Date/Time: 09/13/21 1205 Sign date/Time: 09/13/21 1206 Procedure Note Angeline Day MD - 08/21/2022 [facility] Diagnostic Imaging Department [address] [place], [place] [id number] Patient: KRISTAL POSADA /Age/Sex: 1955 66 - F Unit#: [id number] Location/Status: SPDIMAM/REG CLI [facility] Ordering Physician: EVELIA NELSON LAUNDRY EQUIPMENT OPERATOR Reji Dexa Axial Skeleton - 09/13/211032 HISTORY: [...] density of the femurs bilaterally is 0.858 gm/xr0hfusc is 85% of that of young normals [...] probability of hip fracture of 4.3%. Code 83635 Dictating Physician: ANGELINE DAY MD Electronically Signed by: ANGELINE DAY MD Dic Date/Time: 09/13/21 1205 Sign date/Time: 09/13/21 1206 Evelia Nelson BRIQUETTE OPERATOR IMG BI PROCEDURES F inal Result from Last 3 Months or Most Recently Relevant to Health Maintenance Insurance [facility] MEDICARE Member Subscriber Plan / Payer (Ef fective 2022-Present) Name:KRISTAL POSADA Relation to Subscriber:Self Name:Kristal Posada Payer ID:[id number] Group ID:[id number] Type:Not on file Address: [place] [address] [place] [phone] Care Teams Intercell Connector Placer Relationship Specialty Start Date End Date Colin Shi MD [address] [place] [address] [place] [address] PCP - General Internal Medicine 02/04/22
== END 2025-07-04 12:51 | disposition home or self-care (01) ==
PROVIDERS: PCP Physician Assistant; Visit Provider Physician Assistant
DX: B35.1 Tinea unguium (principal); M05.9 Rheumatoid arthritis with rheumatoid factor, unspecified; I10 Essential (primary) hypertension; E87.1 Hypo-osmolality and hyponatremia

== ENCOUNTER → 2025-07-04 08:46 | Outpatient (BNVA) | payer OTHER, SELFPAY | PROVIDERS: PCP Physician Assistant; Visit Provider Physician Assistant | DX: B35.1 Tinea unguium (principal); M05.9 Rheumatoid arthritis with rheumatoid factor, unspecified; I10 Essential (primary) hypertension; E78.5 Hyperlipidemia, unspecified; E87.1 Hypo-osmolality and hyponatremia; M20.41 Other hammer toe(s) (acquired), right foot; M20.42 Other hammer toe(s) (acquired), left foot; M20.5X9 Other deformities of toe(s) (acquired), unspecified foot; L60.8 Other nail disorders; M81.0 Age-related osteoporosis without current pathological fracture; D50.9 Iron deficiency anemia, unspecified; F41.8 Other specified anxiety disorders; N39.41 Urge incontinence; K58.9 Irritable bowel syndrome, unspecified; Z79.899 Other long term (current) drug therapy | CPT/HCPCS: 99212 ==

== ENCOUNTER 2025-08-03 08:41 | Outpatient (AMB) | payer OTHER, SELFPAY ==
--- NOTE | 2025-08-03 08:44 | MHC.OFFVIS ---
Vital Signs 08/03/25 08:50 Height 5 ft 2 in Weight 172 lb BMI 31.5 Handedness Right Intake Visit Reasons: Bilateral Hammer Toes Intake Note: Kristal is a 70 year old female who presents today in a as a new patient for a evaluation of her bilateral hammer great toes. Patient reports her toe nails are too long and they haven't got cut in a couple months. Patient notices that her pain is worse when she is ambulating. Allergies morphine Allergy (Unknown, Verified 08/03/25 08:50) hallucinations Clindamycin HCl Allergy (Severe, Uncoded 04/25/25 08:45) diarrhea mustard Allergy (Unknown, Uncoded 04/25/25 08:45) Unknown sugar substitute Allergy (Unknown, Uncoded 04/25/25 08:45) Unknown HPI HPI Bilateral Hammer Toes: Details: 70-year-old female with past medical history of seropositive rheumatoid arthritis disabled in a wheelchair, osteoporosis, osteoarthritis of her hands fine hips and knees, status post bilateral foot reconstructive surgery, presents for painful toes and nails. She states she is disabled and lives at home alone. She has been unable to take care of her nails herself. She has tried topical antifungal treatments in the past however did not find success with it. She notes a history of bilateral forefoot reconstructive surgery several years ago, still has lasting toe deformities which cause her pain. [facility] Medical History (Updated 08/03/25 @ 09:17 by Melecio Reynoso DPM) Hyponatremia Hypertension HLD (hyperlipidemia) Encounter for monitoring denosumab therapy On abatacept therapy Cervical pain (neck) Other specified nutritional deficiencies Multiple fractures of cervical spine Iron deficiency anemia Primary osteoarthritis of hands, bilateral Lumbar spondylosis Osteoporosis Seropositive rheumatoid arthritis Surgical History History of colonoscopy (~10/12/20) History of total left knee replacement (TKR) Family History Mother Cancer Brother Cancer Brother Cancer Social History Household Members: None Housing: Apartment Alcohol intake: never Patient Tobacco Use Status: Former Tobacco user (Quite in 2015) Tobacco use type: Cigarette Cigarettes Per Day: 2 Years Smoked: 7 e-Cigarette/Vaping Use: Never Used service: No Current occupational status: disabled Cognitive needs: Yes (Power Wheelchair) Vision needs: Yes (Rx glasses) Review of Systems Const All systems reviewed & are unremarkable except as noted in HPI and below Physical Exam Vital Signs: BMI result Body Mass Index 31.5 Extrem Other: *Bilateral Lower Extremity Focused Exam Vascular: DP/PT 2/4, CFT<3s to all digits, TG warm to cool, mild right 2nd toe edema Derm: Severely thickened elongated dystrophic discolored toenails x 10 with subungual debris. Healed surgical incisions over the dorsal aspect of the feet bilaterally. Neuro: Protective sensation grossly intact to bilateral lower extremities MSK: Multiple digital flexion deformities, including rigid DIPJ flexion deformity of the left 2nd 3rd and 4th digits with pain on range of motion Bilateral 1st MTPJs are fused in neutral position with moderate abduction deformity at the hallux IPJ bilaterally Office Procedures AMB Debridement/Avulsion Podia Details: Procedure: Nail debridement Location: 10 nails, bilateral feet Anesthesia: N/A Description: The affected toenails were cleansed with an antiseptic solution. Using sterile nail nippers and a rotary sree, dystrophic and mycotic nail material was carefully debrided and reduced in thickness. Care was taken to avoid trauma to the surrounding skin and nail bed. All debris was removed as tolerated. The area was inspected for signs of infection or ulceration. Patient tolerated the procedure well without complications. Tolerance: Patient tolerated procedure well, no immediate complications. Class B findings as per physical exam findings above. The patient is disabled due to severe arthritis and in a wheelchair. She is unable to perform self-care and is at risk of infection. 44729-Tivaikcjave of Nail 6+ Procedure code (CPT) selection complete Assessment & Plan Assessment & Plan (1) Hammer toes of both feet: Code(s): M20.41 - Other hammer toe(s) (acquired), right foot; M20.42 - Other hammer toe(s) (acquired), left foot Category: Medical Plan: Referred for bilateral foot x-rays Discussed hammertoe reconstructive surgery in the future in the form of digital fusions with intramedullary fixation (2) Onychogryphosis: Code(s): L60.2 - Onychogryphosis Category: Medical Plan: Debrided elongated thickened nails x 10. The patient requires routine foot care and due to her disability Rx ciclopirox (3) Seropositive rheumatoid arthritis: Comment: Disease onset in the 1990s. Rheumatoid factor and CCP antibody positive. Previous trials with methotrexate, Enbrel, Humira, Kevzara, Xeljanz, Simponi, sulfasalazine, Actemra- mostly ineffective. Some nausea with methotrexate at high doses. Orencia since 2019 with modest response Code(s): M05.9 - Rheumatoid arthritis with rheumatoid factor, unspecified Category: Medical Plan: Physically disabled due to her rheumatoid arthritis Orders: Orders AMB Debridement/Avulsion Podiatry Today L60.2 - Onychogryphosis XR Foot Devan 3V Today M05.9 - Rheumatoid arthritis with rheumatoid factor, unspecified, M15.9 - Polyosteoarthritis, unspecified, M20.41 - Other hammer toe(s) (acquired), right foot, M20.42 - Other hammer toe(s) (acquired), left foot Medications: New ciclopirox 8% Apply to fungal toenails daily. Remove build-up at the end of the week. 1 appl topical BEDTIME 6.6 mL 3RF Fungal nails 4 months B35.1 - Tinea unguium, L60.2 - Onychogryphosis Coding Level of Care Code New Pt Level 4 (62552) Diagnoses Hammer toes of both feet M20.41; M20.42 Onychogryphosis L60.2 Seropositive rheumatoid arthritis M05.9 CPT Codes Skin Debridement - CPT: 93831-Zdlulwsudkw of Nail 6+ ([id number]) Time Spent (min) 35
[2025-08-03 08:50] VITALS: BMI 31.5
--- OUTSIDE RECORDS SUMMARY | 2025-08-03 08:56 | XMS_ITS | Clinical Summary ---
Author Organization [facility] Address [address] [place] [address] Phone Care Team Providers Care Appointment Setter Name Role Phone Colin Shi MD Primary Care Provider [phone] Encounters Date Type Department Care Team Description 07/06/2025 Lab Requisition [facility] - Main Lab [address] [facility] [place] [phone] Rachel Mayo NP Frequency of micturition from Last 3 Months Surgical History Surgery Date Site/Laterality Comments OTHER SURGICAL HISTORY PROCEDURE: GA TOTAL ABDOMINAL HYSTERECT W/WO RMVL TUBE OVARY [...] tubular adenomas. UPPER GASTROINTESTINAL ENDOSCOPY 10/12/2020 PROCEDURE: GA UPPER GI ENDOSCOPY PERFORMED; COMMENT: Visually normal, duodenal biopsies obtained: Normal. HYSTERECTOMY Medical History Medical History Date Comments Allergic rhinitis 12/06/2014 DX:Allergic rh initis Asthma 12/25/2010 DX:Asthma Bipolar disorder (CMS/HCC V2 4, CMS/HCC V28) 05/20/2017 DX:Bipolar disorder ([facility]) Cervical disc disorder with radiculopathy 01/27/2015 DX:Cervical disc disorder wi th radiculopathy Chronic anxiety 10/14/2017 DX:Chronic anxie ty Constipation 12/22/2015 DX:Constipation Depression 06/13/2010 DX:Depression Diverticulosis 12/13/2014 DX:Diverticulosi s GERD (gastroesophageal reflu x disease) 02/06/2018 DX:GERD (gastroesophageal re flux disease) Herniated lumbar intervertebral disc 06/13/2010 DX:Herniated lumbar intervertebral disc History of knee replacement 07/01/2018 DX:H istory of knee replacement History of substance abuse ( [facility] V24, [facility] V28) 05/15/2012 DX:History of substance abus e ([facility]); COMMENT: opioids HTN (hypertension) 06/13/2010 DX:HTN (hyper tension) Hyperlipidemia 02/06/2018 DX:Hyperlipidemi a Lumbar spondylosis 11/20/2013 DX:Lumbar spo ndylosis Mitral prolapse 06/13/2010 DX:Mitral prolap se Mitral regurgitation 08/01/2009 DX:Mitral r egurgitation Mood disorder ([facility] V24) 04/16/2011 DX:M ood disorder ([facility]) Multilevel degenerative disc disease 07/29/2016 DX:Multilevel degenerative disc disease Osteoporosis 06/13/2010 DX:Osteoporosis Pain syndrome, chronic 01/17/2016 DX:Pain s yndrome, chronic Peripheral neuropathy 05/11/2014 DX:Periphe ral neuropathy Prediabetes 02/06/2018 DX:Prediabetes RA (rheumatoid arthritis) ([facility] V24, [facility] V28) 06/13/2010 DX:RA (rheumatoid arthritis) ([facility]) Scoliosis 02/13/2015 DX:Scoliosis Tubular adenoma of colon 01/08/2017 DX:Tubu lar adenoma of colon; COMMENT: Small sigmoid colon polyp at CN 07/12/2010. CN 10/02/2010: 7 mm tubular adenoma at 30 cm. Next colonoscopy indicated 2015. Urinary incontinence 12/25/2010 DX:Urinary incontinence Vitamin D deficiency 02/04/2018 DX:Vitamin D deficiency CKD (chronic kidney disease) stage 3, GFR 30-59 ml/min ([facility] V24, [facility] V28) 07/14/2018 DX:CKD (chronic kidney disea se) stage 3, GFR 30-59 ml/min ([facility]) Family History Medical History Relation Name Comments [...] Procedure Name Priority Date/Time Associated Diagnosis Comments BACTERIAL IDENTIFICATION AND SUSCEPTIBILITY, AEROBIC Routine 07/05/2025 12:00 AM EST Frequency of micturition MG MAMMO DIGITAL SCREENING W CHUCK BILAT Routine 11/23/2024 8:56 AM EDT Encounter for screening mammogram for breast cancer REJI DEXA AXIAL SKELETON Routine 09/13/2021 12:06 PM EST Encounter for screening for osteoporosis from Last 3 Months or Most Recently Relevant to Health Maintenance Results * Baterial identification and susceptibility, aerobic (07/05/2025 12:00 AM EST) Culture, Bacterial ID and Sensitivity Mixed urogenital reynaldo, no uropathogens present. Suggest repeat specimen, if clinically indicated. 07/06/2025 11:05 AM EST [facility] Urine Urine specimen from urethra / Unknown 07/05/2025 07/06/2025 10:30 AM EST us Rachel Mayo MELTER HELPER LAB MICROBIOLOGY - GENERA L ORDERABLES Final Result [facility] ([facility]) [facility] [address] [place] [address], * MG Mammo Digital Screening w Chuck [...] for biopsy. PQRI CPT II 3342F Code 51648, 38078 PQRI 225 CPT II 7025F TISSUE DENSITY: There are scattered areas of fibroglandular density. (BI-RADS category B) IMPRESSION: Benign. BI-RADS CATEGORY: 2 - BENIGN RECOMMENDATION: Screening bilateral mammogram is recommended in 1 year. Mammo Location: [facility], [facility], [address] [place] [address] -------- FINAL REPORT -------- Dictated By: Angeline Day Dictated Date: 11/25/2024 12:03 ET Assigned Physician: Angeline Day Reviewed and Electronically Signed By: Angeline Day Signed Date: 11/25/2024 12:08 ET Workstation ID: [id number] Transcribed By: Self Edit Transcribed Date: 11/25/2024 12:03 ET Narrative 11/25/2024 12:08 PM EDT CLINICAL: The patient is a 69 years Female presenting for routine screening mammography. COMPARISON: Most recently 04/09/2023 and most remotely 03/13/2018. TECHNIQUE: Full-field digital mammography of the breasts bilaterally consisting of tomosynthesis in MLO and CC projection is performed in the Territorial Presciencee 2000-D unit. Computer aided detection utilizing the ConnectifyD system was utilized. FINDINGS: The breasts are [...] MLO and CC projection is performed in theYesmailographe 2000-D unit. Computer aided detection utilizing the [...] for biopsy. PQRI CPT II 3342F Code 81370, 38632 PQRI 225 CPT II 7025F TISSUE DENSITY: There are scattered areas of fibroglandular density.(BI-RADS category B) IMPRESSION: Benign. BI-RADS CATEGORY: 2 - BENIGN RECOMMENDATION: Screening bilateral mammogram is recommended in 1 year. Mammo Location: [facility], [facility], [address] [place] [id number] -------- FINAL REPORT -------- Dictated By: Angeline Day Dictated Date: 11/25/2024 12:03 ET Assigned Physician: Angeline Day Reviewed and Electronically Signed By: Angeline Day Signed Date: 11/25/2024 12:08 ET Workstation ID: [id number] Transcribed By: Self Edit Transcribed Date: 11/25/2024 12:03 ET us Self Referral Sppl IMG BI PROCEDURES Final Resul t * REJI DEXA AXIAL SKELETON (09/13/2021 12:06 PM EST) Anatomical Region Laterality Modality Mammography 09/13/2021 9:57 AM EST Narrative 09/13/2021 12:06 PM EST [facility] Diagnostic Imaging Department [address] [place] [address] Patient: KRISTAL POSADA Carolann RaglandB./Age/Sex: 1955 66 - F Unit#: [id number] Location/Status: SPDIMAM/REG CLI Mnemonic[facility] Ordering Physician: EVELIA NELSON MELTER HELPER [facility] Dexa Axial Skeleton - 09/13/211032 HISTORY: The [...] probability of hip fracture of 4.3%. Code 80265 Dictating Physician: ANGELINE DAY MD Electronically Signed by: ANGELINE DAY MD Dic Date/Time: 09/13/21 120 Sign date/Time: 09/13/21 120 Procedure Note Angeline Day MD - 08/21/2022 [facility] Diagnostic Imaging Department [address] [place] [address] Patient: KRISTAL POSADA Carolann Paul./Age/Sex: 1955 - 66 - F Unit#: [id number] [facility] Ordering Physician: EVELIA NLESON MELTER HELPER Reji Dexa Axial Skeleton - 09/13/213 HISTORY: The patient is a 66-year-old postmenopausal [...] density of the femurs bilaterally is 0.858 gm/sz7iqnlo is 85% of that of young normals [...] probability of hip fracture of 4.3%. Code 15771 Dictating Physician: ANGELINE DAY MD Electronically Signed by: ANGELINE DAY MD Dic Date/Time: 09/13/21 1205 Sign date/Time: 09/13/21 1206 Evelia Nelson [facility] IM BI PROCEDURES F inal Result from Last 3 Months or Most Recently Relevant to Health Maintenance Insurance [employer] MEDICARE Member Subscriber Plan / Payer (Ef fective 2022-Present) Name:KRISTAL POSADA Relation to Subscriber:Self Name:Kristal Posada Payer ID:[id number] Group ID:[id number] Type:Not on file Address: [address] [facility] [place] [phone] Care Teams Appointment Setter Relationship Specialty Start Date End Date Colin Shi MD [address] [place] [address] Dr Ken, [place] [address] PCP - General Internal Medicine 02/04/22
--- OUTSIDE RECORDS SUMMARY | 2025-08-03 08:56 | XMS_ITS | Encounter Summary ---
Author Organization [facility] Address [address] [place] [address] Care Team Providers Care Manager Printing Name Role Phone Colin Shi MD Primary Care Provider [phone] Encounter Details Date Type Department Care Team (Late st Contact Info) Description 07/06/[address] [facility] - Main Lab [address] [facility] [place] [phone] Rachel Mayo NP [address] [facility] [address] [place] [address] Frequency of micturition Social History Tobacco Use [...] 07/05/2025 12:00 AM EST Frequency of micturition documented in this encounter Results * Baterial identification and susceptibility, aerobic (07/05/2025 12:00 AM EST) Culture, Bacterial ID and Sensitivity Mixed urogenital reynaldo, no uropathogens present. Suggest repeat specimen, if clinically indicated. 07/06/2025 11:05 AM EST [facility] Urine Urine specimen from urethra / Unknown 07/05/2025 07/06/2025 10:30 AM EST us Rachel Mayo VP [employer] LAB MICROBIOLOGY - GENERA L ORDERABLES Final Result [facility] [address] [place] [address], documented in this encounter Visit Diagnoses Diagnosis Frequency of micturition Urinary frequency documented in this encounter Care Teams Manager Printing Relationship Specialty Start Date End Date Colin Shi MD [address] [place] [address] [place] [address] PCP - General Internal Medicine 02/04/22 documented as of this encounter
--- OUTSIDE RECORDS SUMMARY | 2025-08-03 08:56 | XMS_ITS | Encounter Summary ---
Author Organization [facility] Address [address] [place] [address] Care Team Providers Care Public Health Educator Name Role Phone Colin Shi MD Primary Care Provider [phone] Encounter Details Date Type Department Care Team (Late st Contact Info) Description 02/25/2025 Lab Requisition [facility] - Main Lab [address] [facility] [place] [id number] Rachel Mayo NP [address] [facility] [address] [place] [address] Frequency of micturition Social History Tobacco Use [...] Urine No growth 02/26/2025 9:11 AM EDT [facility] Urine Urine specimen obtained by clean catch procedure / Unknown 02/25/2025 02/25/2025 11:28 AM EDT us Rachel Mayo [employer] OPERATOR LAB MICROBIOLOGY - GENERA L ORDERABLES Final Result [facility] [address] [place] [address], documented in this encounter Visit Diagnoses Diagnosis Frequency of micturition Urinary frequency documented in this encounter Care Teams Public Health Educator Relationship Specialty Start Date End Date Colin Shi MD [address] [place] [address] [place] [address] PCP - General Internal Medicine 02/04/22 documented as of this encounter
== END 2025-08-03 09:13 | disposition home or self-care (01) ==
LOC: HO.HPODS 08:41
PROVIDERS: PCP Physician Assistant; Visit Provider Student in an Organized Health Care Education/Training Program
DX: M20.41 Other hammer toe(s) (acquired), right foot (principal); M20.42 Other hammer toe(s) (acquired), left foot; L60.2 Onychogryphosis; M05.9 Rheumatoid arthritis with rheumatoid factor, unspecified
CPT/HCPCS: 11721; 99204

== ENCOUNTER → 2025-08-03 08:41 | Outpatient (BNVA) | payer OTHER, SELFPAY | PROVIDERS: PCP Physician Assistant; Visit Provider Student in an Organized Health Care Education/Training Program | DX: M20.41 Other hammer toe(s) (acquired), right foot (principal); M20.42 Other hammer toe(s) (acquired), left foot; L60.2 Onychogryphosis; B35.1 Tinea unguium; M79.675 Pain in left toe(s); M79.674 Pain in right toe(s); M05.9 Rheumatoid arthritis with rheumatoid factor, unspecified; Z99.3 Dependence on wheelchair | CPT/HCPCS: 11721; 99202 ==